=== PATIENT | female | born 1990 | race Caucasian/White ===

== ENCOUNTER → 2016-08-10 | Outpatient (CLI) | payer MEDICAID ==
[~2016-08-10] MED LIST: AMOXICILLIN 50500 MG PO; BACTRIM 400 MG-1 TAB PO; DICLOFENAC 50MG50 MG PO; DIFLUCAN150 MG PO; FLEXERIL10 MG PO; HYDROXYZINE PAM25 MG PO; KEFLEX 500MG.500 MG PO; MEDROL 4MG. DOSE4 MG PO; MINOCYCLINE 10100 MG PO; NOMEDS XX; NORCO 325 MG-51 TAB PO; ONDANSETRON 4MG4 M1 PO; PERCOCET1 TAB PO; PHENERGAN25 M3 PO; PREDNISONE 20MG20 MG PO; QUETIAPINE FUM100 M2 PO; SEROQUEL50 MG PO; SPRINTEC 35 MCG1 TAB PO; TORADOL10 MG PO; VISTARIL25 M1 PO; ZOFRAN ODT4 MG PO
[2016-08-10 16:05] LABS: HEMOGLOBIN 14.1 g/dL (12.2-16.2); LYMPH # 2.7 K/mm3 (0.7-4.5); LYMPH % 25.8 % (10-50.0)
[2016-08-10 17:28] LABS: BUN 5 mg/dL (7-18)
[2016-08-10 17:48] LABS: GFR (ESTIMATED) 122 ML/MIN (59-)
== END ==
LOC: LAB 15:51
PROVIDERS: Surgery
DX: Z01.812 Encounter for preprocedural laboratory examination (principal)

== ENCOUNTER 2016-08-11 09:13 | Day surgery (SDC) | payer MEDICAID ==
[~2016-08-11] VITALS: Ht 167.6 cm; Wt 95.3 kg
[~2016-08-11 09:13] MED LIST changes: -SEROQUEL50 MG PO; -TORADOL10 MG PO; -VISTARIL25 M1 PO
--- NOTE | 2016-08-11 11:21 | Operative Note ---
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 She has radiographic evidence of chronic calculus cholecystitis. Findings: Mild to moderate pericholecystic fat stranding Multiple stones within gallbladder Procedure Description: After informed consent was obtained, the patient was taken to the operating room and placed in the supine position. General anesthesia was induced and the patient's abdomen was prepped and draped in a sterile fashion. After infiltration with local anesthetic an infraumbilical incision was made. A Veress needle was placed in position. The abdomen was insufflated. A 5 mm optical trocar was placed in position. Under direct visualization, 2 additional 5 mm trocars were placed in the RIGHT upper quadrant. A 12 mm trocar was placed in the subxiphoid position. The gallbladder was elevated up and over the liver margin. The tissue around the cystic duct was carefully dissected. Clips were placed proximally and the duct was transected at the infundibulum utilizing harmonic afshin. Harmonic afshin were then utilized to remove the gallbladder from the liver margin. The gallbladder was placed in a retrieval bag and removed through the subxiphoid trocar site. The RIGHT upper quadrant was thoroughly irrigated. No active bleeding or bile leak was noted. The fascia at the subxiphoid trocar site was reapproximated utilizing the luis-close device. Pneumoperitoneum was released as the remaining trocars were removed. All wounds were irrigated and skin was closed with 4-0 Monocryl in a subcuticular fashion. Steri-Strips were applied and the patient's anesthetic agents were reversed. After extubation, the patient was transferred to recovery in stable condition. EBL (ml): 15 Anesthesia: GETA Complications: No immediate Specimens: Gallbladder and contents Disposition Disposition: Stable to recovery from where she will be discharged home. She will follow-up in 1-2 weeks. at 1121
[2016-08-11 14:15] VITALS: BP 131/84
[2016-10-20] MEDS ORDERED: SEROQUEL50 MG PO (09:12)
[2016-10-21] MEDS ORDERED: VISTARIL25 M1 PO (17:32)
== END 2016-08-11 13:15 | disposition home or self-care (01) ==
LOC: SDC 09:13
PROVIDERS: Surgery
PROC: 0FT44ZZ Resection of Gallbladder, Percutaneous Endoscopic Approach (ICD-10-PCS; principal; 2016-08-11 10:45)
DX: K80.10 Calculus of gallbladder with chronic cholecystitis without obstruction (principal)
CPT/HCPCS: J0131; J2405

== ENCOUNTER 2016-08-19 11:31 | Emergency (ER) | payer MEDICAID ==
[~2016-08-19] VITALS: Ht 167.6 cm; Wt 95.3 kg
--- NOTE | 2016-08-19 12:00 | Emergency Room Report ---
History of Present Illness Time Seen by [id number] Presenting Problem in Triage Pt arrived:Walked Presenting Problem:PT STATES HAVING GALLBLADDER SURGERY ONE WEEK AGO BY DR PARKER. PT STATES TOP INCISION HURTS. STATES IS SHE STANDS UP ALL THE WAY, THE TOP INCISION FEELS LIKE IT IS TEARING. STATES WHILE SHE IS SITTING STILL, AREA EMERY. STATES UNABLE TO GET COMFORTABLE. STATES OTHER AREAS BURN AT TIMES BUT THE TOP AREA IS WHAT HURTS THE MOST. STATES SHE HAS ASSISTED HER 2 YR INTO HER BED AND CLEANED HER HOUSE. DENIES DRAINAGE FROM INCISION. STATES FOLLOW UP APPT WITH DR PARKER ON . 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 N Clinical Suspician of Infection? N Mental Status: 1 - Regular (Normal Baseline) Sepsis Risk:Possible Sepsis Risk Have you (or family members/close friends) recently traveled outside the [place]? N If Yes, where/when: Have you had exposure to infectious disease within the past month? N TB? Other? Specify: Comment The patient had a laparoscopic cholecystectomy by Dr. Parker a days ago. She complains of pain in the area of her epigastric incision. It feels like a burning sensation and a ripping sensation when she moves. To touch she feels like there is a mass "like a baseball" in the area of this incision. She was on [place] for pain but ran out this weekend. Currently taking Tylenol and ibuprofen. She says that she called Dr. Parker's office today and they advised her to come to the emergency room or come to the office this afternoon. No fever, but gets hot flashes. She says that she is able to eat but usually has to stop after a few bites. No urinary or bowel symptoms. ALLERGIES Coded Allergies: tramadol (From [facility]) (08/11/16) Home Medications Reported Medications NORGESTIMATE-ETHINYL ESTRADIOL (Sprintec 28 Day Tablet) 1 TAB PO DAILY #28 PROMETHAZINE HCL (Phenergan 25MG Tab (Geq)) 25 MG PO Q6HP PRN N/V #15 History Medical History General CAD? No Angina: No [place]: No Hypertension? Yes Hyperlipidemia? No CHF? No DVT? No PE? No COPD? No Asthma? Yes Anemia? No GERD? No Gastric ulcers? No GI Bleed? No Hernia? No Thyroid Problems? No Hypothyroidism? No CVA? No Seizures? No Diabetes? No Renal Insuffiency? No End Stage Renal Disease? No UTI? Yes Stones? Yes BPH? No GB Disease: Yes Nephritic Syndrome? No Asplenia? No Hepatitis? Yes Sickle Cell Disease? No Arthritis? No Migraines? No Cataracts? No Glaucoma? No MRSA? No HIV? No TB? No Anxiety? Yes Depression? Yes Cancer? No More? No Immunization Hx DT/Tetanus 1-4 Years Ago Flu Refused Pneumonia Never Had Surgical Hx Previous Surgery?Y X 3 ORAL SURGERY GALLBLADDER CAT TENDER Hx LMP On Depo Med-LMP Unknown Family History Family Hx Diabetes Yes CAD No Hypertension Yes Hyperlipidemia No Cancer Yes TB No Social History Smoking Hx Smoker: Current Every Day Smoker Tobacco: Yes Type Cigarettes Packs/day < 1 Pack Alcohol Alcohol: No Review of Systems All Other Systems Reviewed and Negative Constitutional denies fever, other (hot flashes) Gastrointestinal abdominal pain, denies diarrhea, denies vomiting Genitourinary denies: dysuria. Physical Exam Vital Signs Vital Signs Date Time Temp Pulse Resp B/P Pulse O2 O2 Flow FiO2 Ox Delivery Rate 08/19 1138 98.4 101 20 156/102 97 General Appearance WD/WN, anxious Eye Exam - bilateral eye normal exam, bilateral eye PERRL, bilateral eye EOMI Ear, Nose, Throat hearing grossly normal, normal ENT inspection Neck normal inspection, non-tender, supple, full range of motion Respiratory Status Yes: trachea midline, chest symmetrical, non tender chest. No: respiratory distress. Lung Sounds bilateral: normal breath sounds, lungs clear. Cardiovascular normal exam, regular rate/rhythm, no peripheral edema, no gallop, no JVD, no murmur, no rub, normal peripheral pulses Peripheral Pulses Pulses normal Yes Gastrointestinal normal bowel sounds, soft, no organomegaly, focally tender in the area of her epigastric laparoscope incision. Purple/yellow ecchymosis inferior to this incision. Small firm mass palpable deep to the incision which feels like a hematoma. Other incisions are nontender. All are healing well. Back normal inspection, no CVA tenderness, no vertebral tenderness Extremities non-tender, normal range of motion, normal inspection Neurologic alert, freedom of information officer II-XII nml as tested, normal exam, oriented x 3 Mental status normal mood/affect Skin intact, normal color, warm/dry Medical Decision Making LABS/Meds/Orders Pt receiving controlled substance in ED? No Vasile was queried for this patient? Yes Reference #: [id number] Comment 8 rxs. last rx 27 norco on 08/11/15 Results/Orders Current Medication Orders Sig/Lisa Start time Last Medication Dose Route Stop Time Status Admin Ketorolac 60 MG ONCE ONE 08/195 DC Tromethamine IM 08/19 1245 Progress - 12:30 PM: I spoke with Dr. Parker. We discussed the patient's presentation and findings. The patient appears to have a hematoma at her epigastric incision. He states that this is the largest incision, where the gallbladder comes out, and always gives the most problems. He recommends treating her with an injection of Toradol and a prescription for Toradol and he will consult with his office staff to try and get her in sooner. They will call us back. Dr. Parker called back. He states that his office staff told him that when they were on the phone with the patient, she refused to go to the emergency department and wanted to come to the office this afternoon and they referred appointment for 2 or 3 PM. They advised her that Dr. Parker would not be able to prescribe opiates more than 3 days postoperatively and therefore she would not get narcotic pain medication. She then apparently decided to come to the emergency department instead. 12:40 PM: I discussed the plan as noted with the patient. She is sitting upright using a cellular phone appearing in no distress. She is agreeable with the plan. Departure Departure Disposition DC Home or Self Care(routine) Clinical Impression Primary Impression: Hematoma Condition STABLE Referrals Giorgio Allen (Family) Additional Instructions Return to the emergency department if worsening pain, fever, vomiting. See Dr. Parker on August 25 at 10:45 AM. Prescriptions Current Visit Scripts KETOROLAC TROMETHAMINE (TORADOL 10MG) 10 MG PO Q6HP PRN pain #20 TAB ED Critical Care Critical Care No at 1250
--- NOTE | 2016-08-19 12:00 | Emergency Room Report ---
History of Present Illness Time Seen by [id number] Presenting Problem in Triage Pt arrived:Walked Presenting Problem:PT STATES HAVING GALLBLADDER SURGERY ONE WEEK AGO BY DR PARKER. PT STATES TOP INCISION HURTS. STATES IS SHE STANDS UP ALL THE WAY, THE TOP INCISION FEELS LIKE IT IS TEARING. STATES WHILE SHE IS SITTING STILL, AREA EMERY. STATES UNABLE TO GET COMFORTABLE. STATES OTHER AREAS BURN AT TIMES BUT THE TOP AREA IS WHAT HURTS THE MOST. STATES SHE HAS ASSISTED HER 2 YR INTO HER BED AND CLEANED HER HOUSE. DENIES DRAINAGE FROM INCISION. STATES FOLLOW UP APPT WITH DR PARKER ON . 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 N Clinical Suspician of Infection? N Mental Status: 1 - Regular (Normal Baseline) Sepsis Risk:Possible Sepsis Risk Have you (or family members/close friends) recently traveled outside the [place]? N If Yes, where/when: Have you had exposure to infectious disease within the past month? N TB? Other? Specify: Comment The patient had a laparoscopic cholecystectomy by Dr. Parker a days ago. She complains of pain in the area of her epigastric incision. It feels like a burning sensation and a ripping sensation when she moves. To touch she feels like there is a mass "like a baseball" in the area of this incision. She was on [place] for pain but ran out this weekend. Currently taking Tylenol and ibuprofen. She says that she called Dr. Parker's office today and they advised her to come to the emergency room or come to the office this afternoon. No fever, but gets hot flashes. She says that she is able to eat but usually has to stop after a few bites. No urinary or bowel symptoms. ALLERGIES Coded Allergies: tramadol (From [facility]) (08/11/16) Home Medications Reported Medications NORGESTIMATE-ETHINYL ESTRADIOL (Sprintec 28 Day Tablet) 1 TAB PO DAILY #28 PROMETHAZINE HCL (Phenergan 25MG Tab (Geq)) 25 MG PO Q6HP PRN N/V #15 History Medical History General CAD? No Angina: No [place]: No Hypertension? Yes Hyperlipidemia? No CHF? No DVT? No PE? No COPD? No Asthma? Yes Anemia? No GERD? No Gastric ulcers? No GI Bleed? No Hernia? No Thyroid Problems? No Hypothyroidism? No CVA? No Seizures? No Diabetes? No Renal Insuffiency? No End Stage Renal Disease? No UTI? Yes Stones? Yes BPH? No GB Disease: Yes Nephritic Syndrome? No Asplenia? No Hepatitis? Yes Sickle Cell Disease? No Arthritis? No Migraines? No Cataracts? No Glaucoma? No MRSA? No HIV? No TB? No Anxiety? Yes Depression? Yes Cancer? No More? 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 Physical Exam Vital Signs Vital Signs Date Time Temp Pulse Resp B/P Pulse O2 O2 Flow FiO2 Ox Delivery Rate 08/19 1138 98.4 101 20 156/102 97 General Appearance WD/WN, anxious Eye Exam - bilateral eye normal exam, bilateral eye PERRL, bilateral eye EOMI Ear, Nose, Throat hearing grossly normal, normal ENT inspection Neck normal inspection, non-tender, supple, full range of motion Respiratory Status Yes: trachea midline, chest symmetrical, non tender chest. No: respiratory distress. Lung Sounds bilateral: normal breath sounds, lungs clear. Cardiovascular normal exam, regular rate/rhythm, no peripheral edema, no gallop, no JVD, no murmur, no rub, normal peripheral pulses Peripheral Pulses Pulses normal Yes Gastrointestinal normal bowel sounds, soft, no organomegaly, focally tender in the area of her epigastric laparoscope incision. Purple/yellow ecchymosis inferior to this incision. Small firm mass palpable deep to the incision which feels like a hematoma. Other incisions are nontender. All are healing well. Back normal inspection, no CVA tenderness, no vertebral tenderness Extremities non-tender, normal range of motion, normal inspection Neurologic alert, human relations manager II-XII nml as tested, normal exam, oriented x 3 Mental status normal mood/affect Skin intact, normal color, warm/dry Medical Decision Making LABS/Meds/Orders Pt receiving controlled substance in ED? No Vasile was queried for this patient? Yes Reference #: [id number] Comment 8 rxs. last rx 27 norco on 08/11/15 Results/Orders Current Medication Orders Sig/Lisa Start time Last Medication Dose Route Stop Time Status Admin Ketorolac 60 MG ONCE ONE 08/195 DC Tromethamine IM 08/19 1245 Progress - 12:30 PM: I spoke with Dr. Parker. We discussed the patient's presentation and findings. The patient appears to have a hematoma at her epigastric incision. He states that this is the largest incision, where the gallbladder comes out, and always gives the most problems. He recommends treating her with an injection of Toradol and a prescription for Toradol and he will consult with his office staff to try and get her in sooner. They will call us back. Dr. Parker called back. He states that his office staff told him that when they were on the phone with the patient, she refused to go to the emergency department and wanted to come to the office this afternoon and they referred appointment for 2 or 3 PM. They advised her that Dr. Parker would not be able to prescribe opiates more than 3 days postoperatively and therefore she would not get narcotic pain medication. She then apparently decided to come to the emergency department instead. 12:40 PM: I discussed the plan as noted with the patient. She is sitting upright using a cellular phone appearing in no distress. She is agreeable with the plan. Departure Departure Disposition DC Home or Self Care(routine) Clinical Impression Primary Impression: Hematoma Condition STABLE Referrals Giorgio Allen (Family) Additional Instructions Return to the emergency department if worsening pain, fever, vomiting. See Dr. Parker on August 25 at 10:45 AM. Prescriptions Current Visit Scripts KETOROLAC TROMETHAMINE (TORADOL 10MG) 10 MG PO Q6HP PRN pain #20 TAB ED Critical Care Critical Care No at 1250
[2016-08-19] MEDS ORDERED: TORADOL10 MG PO (12:48)
[2016-08-19 13:18] VITALS: BP 161/92
[2016-10-20] MEDS ORDERED: SEROQUEL50 MG PO (09:12)
[2016-10-21] MEDS ORDERED: VISTARIL25 M1 PO (17:32)
== END 2016-08-19 13:19 | disposition home or self-care (01) ==
LOC: ER 11:31
DX: L76.32 Postprocedural hematoma of skin and subcutaneous tissue following other procedure (principal); I10 Essential (primary) hypertension; Z72.0 Tobacco use; F41.8 Other specified anxiety disorders

== ENCOUNTER 2017-02-08 15:42 | Emergency (ER) | payer MEDICAID ==
[~2017-02-08] VITALS: Ht 167.6 cm; Wt 79.4 kg
[~2017-02-08 15:42] MED LIST changes: +INDOCIN25 MG PO; +PROZAC20 MG PO; +SEROQUEL50 MG PO; +TORADOL10 MG PO; +VISTARIL25 M1 PO
[2017-02-08] MEDS ORDERED: BUSPIRONE HCL15 MG PO (16:08)
[2017-02-08] MEDS ORDERED: BROMFED DM COU118 ML PO (16:44)
[2017-02-08] MEDS ORDERED: OMNICEF 300 MG300 MG PO (16:44)
--- NOTE | 2017-02-08 16:45 | Urgent Treatment Center Report ---
History of Present Issue Date/Time Seen by Provider 02/08/17 1635 Visit Reason Pt arrived:Walked Presenting Problem:PT REPORTS SORE THROAT X3 DAYS. Location if Accident: Onset of symptoms date/time:02/05/17/ or onset unknown for:MEDICAL HX UNKNOWN Have you (or family members/close friends) recently traveled outside the [place]? N If Yes, where/when: Have you had exposure to infectious disease within the past month? TB? Other? Specify: Patient state that she has had sore throat for 3-4 days State that it has not got any better only gotten worse. State that throat feels raw and irritated and hurts when she swallows. States that she also has a dry cough. States that when she coughs it makes her throat hurt even worse. Source patient ALLERGIES Coded Allergies: tramadol (From [facility]) (10/21/16) Home Medications Active Scripts Hydroxyzine Pamoate (Vistaril 25MG CAP) 25 MG PO Q6HP PRN nausea; anxiety #10 CAP Prov: 10/21/16 Reported Medications NORGESTIMATE-ETHINYL ESTRADIOL (Sprintec 28 Day Tablet) 1 TAB PO DAILY #28 Quetiapine Fumarate (Seroquel 50MG) 100 MG PO QHS Fluoxetine Hcl (Prozac) 20 MG PO DAILY Buspirone Hcl 15 MG PO DAILY #60 History Medical History General CAD? No Angina: No [place]: No Hypertension? Yes Hyperlipidemia? No CHF? No DVT? No PE? No COPD? No Asthma? Yes Anemia? No GERD? No Gastric ulcers? No GI Bleed? No Hernia? No Thyroid Problems? No Hypothyroidism? No CVA? No Seizures? No Diabetes? No Renal Insuffiency? No UTI? Yes Stones? Yes BPH? No GB Disease: Yes Nephritic Syndrome? No Asplenia? No Hepatitis? Yes Sickle Cell Disease? No Arthritis? No Migraines? No Cataracts? No Glaucoma? No MRSA? No HIV? No TB? No Anxiety? Yes Depression? Yes Cancer? No More? 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 Respiratory cough, denies shortness of breath, denies stridor, denies wheezing Physical Exam Vital Signs Vital Signs Date Time Temp Pulse Resp B/P Pulse O2 O2 Flow FiO2 Ox Delivery Rate 02/08 1606 98.5 107 20 143/95 98 02/08 1551 98.5 107 20 143/95 98 General Appearance Patient appears ill lying on exam table Ear, Nose, Throat sinus pain/drainage, tonsillar swelling, throat red, drainage noted swollen Respiratory Status Yes: trachea midline, chest symmetrical, non tender chest. No: respiratory distress. Cardiovascular normal exam, regular rate/rhythm, no peripheral edema, no gallop Neurologic alert, electronic test technician II-XII nml as tested, normal exam, no motor/sensory deficits, oriented x 3 Medical Decision Making LABS/Meds/Orders Pt receiving controlled substance in ED? No Results/Orders Laboratory Tests 02/08/17 1609: Group A Strep Screen NOT DETECTED Orders Procedure Date/time Status [facility] STREP SCREEN 02/08 1609 Complete Departure Departure Time of Disposition 1642 Disposition DC Home or Self Care(routine) Clinical Impression Primary Impression: Upper respiratory infection Qualifiers: URI type: acute tonsillitis Pharyngitis/tonsillitis etiology: unspecified etiology Qualified Code: J03.90 - Acute tonsillitis, unspecified Condition STABLE Referrals NO REFERRAL (Family) Patient Instructions Sore Throat Additional Instructions * Monitor Temp. Tylenol and/or Ibuprofen as needed. ER if fever is no less than 101 despite alternating Tylenol and Ibuprofen * Encourage fluids, water, Gatorade, powerade, pedialyte if infant/toddler/or child * Warm salt water gargles for throat irritation *Warm fluids *Sore throat lozenges *Sleep elevated *humidifier or vaporizer *Bromfed may cause drowsiness. Know how it effect you or your child. Before driving, caring for small children or sending your child to school Follow up IMMEDIATELY for new or worsening of symptoms OR no noticeable improvement over the next 48-72 hours. 911 immediately for any life threatening symptoms such as chest pain or difficulty breathing Discharge Counseling Counseled pt/family regarding diagnosis, test results, medications/RX, home care, follow up needs Prescriptions Current Visit Scripts CEFDINIR (Cefdinir) 300 MG PO BID #20 CAP D-METHORPHAN HB/P-EPD HCL/BPM (Bromfed Dm Cough Syrup) 10 ML PO Q4HP PRN cough #150 SYR at 3729
--- NOTE | 2017-02-08 16:45 | Urgent Treatment Center Report ---
History of Present Issue Date/Time Seen by Provider 02/08/17 1635 Visit Reason Pt arrived:Walked Presenting Problem:PT REPORTS SORE THROAT X3 DAYS. Location if Accident: Onset of symptoms date/time:02/05/17/ or onset unknown for:MEDICAL HX UNKNOWN Have you (or family members/close friends) recently traveled outside the [place]? N If Yes, where/when: Have you had exposure to infectious disease within the past month? TB? Other? Specify: Patient state that she has had sore throat for 3-4 days State that it has not got any better only gotten worse. State that throat feels raw and irritated and hurts when she swallows. States that she also has a dry cough. States that when she coughs it makes her throat hurt even worse. Source patient ALLERGIES Coded Allergies: tramadol (From [facility]) (10/21/16) Home Medications Active Scripts Hydroxyzine Pamoate (Vistaril 25MG CAP) 25 MG PO Q6HP PRN nausea; anxiety #10 CAP Prov: 10/21/16 Reported Medications NORGESTIMATE-ETHINYL ESTRADIOL (Sprintec 28 Day Tablet) 1 TAB PO DAILY #28 Quetiapine Fumarate (Seroquel 50MG) 100 MG PO QHS Fluoxetine Hcl (Prozac) 20 MG PO DAILY Buspirone Hcl 15 MG PO DAILY #60 History Medical History General CAD? No Angina: No FL: No Hypertension? Yes Hyperlipidemia? No CHF? No DVT? No PE? No COPD? No Asthma? Yes Anemia? No GERD? No Gastric ulcers? No GI Bleed? No Hernia? No Thyroid Problems? No Hypothyroidism? No CVA? No Seizures? No Diabetes? No Renal Insuffiency? No UTI? Yes Stones? Yes BPH? No GB Disease: Yes Nephritic Syndrome? No Asplenia? No Hepatitis? Yes Sickle Cell Disease? No Arthritis? No Migraines? No Cataracts? No Glaucoma? No MRSA? No HIV? No TB? No Anxiety? Yes Depression? Yes Cancer? No More? No Immunization HX DT/Tetanus 1-4 Years Ago Flu Refused Pneumonia Never Had Surgical Hx Previous Surgery?Y X 3 ORAL SURGERY [employer]IAN Hx LMP 2 Weeks Ago Family History Family HX Diabetes Yes CAD No Hypertension Yes Hyperlipidemia No Cancer Yes TB No Social History Smoking Hx Smoker: Current Every Day Smoker Tobacco: Yes Type Cigarettes Packs/day < 1 Pack Alcohol Alcohol: No Review of Systems All Other Systems Reviewed and Negative Constitutional chills ENT nose congestion, throat pain, throat swelling. Respiratory cough, denies shortness of breath, denies stridor, denies wheezing Physical Exam Vital Signs Vital Signs Date Time Temp Pulse Resp B/P Pulse O2 O2 Flow FiO2 Ox Delivery Rate 02/08 1606 98.5 107 20 143/95 98 02/08 1551 98.5 107 20 143/95 98 General Appearance Patient appears ill lying on exam table Ear, Nose, Throat sinus pain/drainage, tonsillar swelling, throat red, drainage noted swollen Respiratory Status Yes: trachea midline, chest symmetrical, non tender chest. No: respiratory distress. 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 No Results/Orders Laboratory Tests 02/08/17 1609: Group A Strep Screen NOT DETECTED Orders Procedure Date/time Status RUST STREP SCREEN 02/08 1609 Complete Departure Departure Time of Disposition 1642 Disposition DC Home or Self Care(routine) Clinical Impression Primary Impression: Upper respiratory infection Qualifiers: URI type: acute tonsillitis Pharyngitis/tonsillitis etiology: unspecified etiology Qualified Code: J03.90 - Acute tonsillitis, unspecified Condition STABLE Referrals NO REFERRAL (Family) Patient Instructions Sore Throat Additional Instructions * Monitor Temp. Tylenol and/or Ibuprofen as needed. ER if fever is no less than 101 despite alternating Tylenol and Ibuprofen * Encourage fluids, water, Gatorade, powerade, pedialyte if infant/toddler/or child * Warm salt water gargles for throat irritation *Warm fluids *Sore throat lozenges *Sleep elevated *humidifier or vaporizer *Bromfed may cause drowsiness. Know how it effect you or your child. Before driving, caring for small children or sending your child to school Follow up IMMEDIATELY for new or worsening of symptoms OR no noticeable improvement over the next 48-72 hours. 911 immediately for any life threatening symptoms such as chest pain or difficulty breathing Discharge Counseling Counseled pt/family regarding diagnosis, test results, medications/RX, home care, follow up needs Prescriptions Current Visit Scripts CEFDINIR (Cefdinir) 300 MG PO BID #20 CAP D-METHORPHAN HB/P-EPD HCL/BPM (Bromfed Dm Cough Syrup) 10 ML PO Q4HP PRN cough #150 SYR at [id number]
--- OUTSIDE RECORDS SUMMARY | 2017-02-08 16:53 | External Medical Summary Rpt ---
Demographics Home Phone Preferred Language Turkish Marital Status Unknown Restorationism Affiliation Unknown Race Unknown Ethnic Group Unknown Author Author , Organization [employer] Address Unknown Phone Unavailable Purpose Continuity of Care Document - 02-09-2014 through 2016 Immunization Name Date Route CVX Reacti Commen Provid Is Given on t er Refuse d Tdap, 115 Histor [id number] No Adsorb 2013 uscula ical ed r Inform ation - Source Unspec ified
--- OUTSIDE RECORDS SUMMARY | 2017-02-08 16:53 | External Medical Summary Rpt ---
Demographics Home Phone Preferred Language Turkmen Marital Status Unknown Bahai Affiliation Unknown Race Unknown Ethnic Group Unknown Author Author , Organization [employer] Address Unknown Phone Unavailable Purpose Continuity of Care Document - 02-09-2014 through 2016 Immunization Name Date Route CVX Reacti Commen Provid Is Given on t er Refuse d Tdap, 115 Histor [id number] No Adsorb 2013 uscula ical ed r Inform ation - Source Unspec ified
--- OUTSIDE RECORDS SUMMARY | 2017-02-08 16:54 | External Medical Summary Rpt ---
Author Author [employer], [employer] Organization [employer] Address Unknown Phone Unavailable Results POC UA Observa Value Referen Units Interpr Notes Date tion ce etation Range UA Yellow No No No No January 02 Color informa informa informa informa 2015 POC tion in tion in tion in tion in 1:06 PM source source source source data data data data UA Clear Clear No No No January 02 Appear informa informa informa 2014 POC tion in tion in tion in 1:06 PM source source source data data data UA Gluc Negativ Negativ No No No January 02 POC e e informa informa informa 2015 tion in tion in tion in 1:06 PM source source source data data data UA Negativ Negativ No No No January 02 Ketones e e informa informa informa 2014 POC tion in tion in tion in 1:06 PM source source source data data data UA Negativ Negativ No No No January 02 Blood e e informa informa informa 2015 POC tion in tion in tion in 1:06 PM source source source data data data UA pH 5.5 5.0 - No No No January 02 POC 8.0 informa informa informa 2015 tion in tion in tion in 1:06 PM source source source data data data UA Negativ Negativ No No No January 02 Protein e e informa informa informa 2014 POC tion in tion in tion in 1:06 PM source source source data data data UA 0.2 <=1 No No No January 02 Urobili mg/dl mg/dl informa informa informa 2015 nogen tion in tion in tion in 1:06 PM POC source source source data data data UA Negativ Negativ No No No January 02 Nitrite e e informa informa informa 2015 POC tion in tion in tion in 1:06 PM source source source data data data UA Leuk Negativ Negativ No No No January 02 Est e e informa informa informa 2014 POC tion in tion in tion in 1:06 PM source source source data data data UA SG 1.010 1.001 - No No No January 02 POC 1.035 informa informa informa 2015 tion in tion in tion in 1:06 PM source source source data data data Lipase Observa Value Referen Units Interpr Notes Date tion ce etation Range Lipase 10 13 - 60 IU/L Low No January 02 Lvl informa 2015 tion in 1:24 PM source data HCG Qual Observa Value Referen Units Interpr Notes Date tion ce etation Range HCG Negativ No No No No January 02 QUAL e informa informa informa informa 2014 tion in tion in tion in tion in 1:19 PM source source source source data data data data Auto Diff Observa Value Referen Units Interpr Notes Date tion ce etation Range Neutrop 61.1 No % No No January 02 hils informa informa informa 2014 [#/volu tion in tion in tion in 1:03 PM me] in source source source Blood data data data by Automat ed count Lymphoc 29.1 No % No No January 02 ytes informa informa informa 2014 [#/volu tion in tion in tion in 1:03 PM me] in source source source Blood data data data by Automat ed count Monocyt 8.9 No % No No January 02 es informa informa informa 2014 [#/volu tion in tion in tion in 1:03 PM me] in source source source Blood data data data by Automat ed count Eos 0.2 No % No No January 02 Percent informa informa informa 2014 tion in tion in tion in 1:03 PM source source source data data data Baso 0.7 No % No No January 02 Percent informa informa informa 2014 tion in tion in tion in 1:03 PM source source source data data data Neut# 4.6 1.8 - x10(3)/ No No January 02 7.7 mcL informa informa 2014 tion in tion in 1:03 PM source source data data Lymph# 2.2 0.6 - x10(3)/ No No January 02 4.8 mcL informa informa 2014 tion in tion in 1:03 PM source source data data Lamar# 0.7 0.0 - x10(3)/ No January 02 1.3 mcL informa informa 2014 tion in tion in 1:03 PM source source data data Eos# 0.0 0.0 - x10(3)/ No January 02 0.5 mcL informa informa 2014 tion in tion in 1:03 PM source source data data Baso# 0.1 0.0 - x10(3)/ No January 02 0.2 mcL informa informa 2014 tion in tion in 1:03 PM source source data data CBC Observa Value Referen Units Interpr Notes Date tion ce etation Range LEUKOCY 7.5 4.0 - x10(3)/ No January 02 MARIBETH 11.0 mcL informa informa 2014 tion in tion in 1:03 PM source source data data Erythro 4.61 3.80 - x10(6)/ No January 02 cytes 5.10 [facility] informa informa 2014 [#/volu tion in tion in 1:03 PM me] in source source Blood data data by Automat ed count Hemoglo 13.6 12.0 - gm/dL No January 02 bin 15.6 informa informa 2014 [Mass/v tion in tion in 1:03 PM olume] source source in data data Blood Hematoc 40.5 35.7 - % No January 02 rit 45.9 informa informa 2014 [Volume tion in tion in 1:03 PM source source Fractio data data n] of Blood by Automat ed count Erythro 87.9 82.5 - fL No January 02 cyte 99.8 informa informa 2014 mean tion in tion in 1:03 PM corpusc source source ular data data volume [Entiti c volume] by Automat ed count Erythro 29.5 27.0 - pg No January 02 cyte 34.3 informa informa 2014 mean tion in tion in 1:03 PM corpusc source source ular data data hemoglo bin [Entiti c mass] by Automat ed count Erythro 33.6 32.1 - gm/dL No January 02 cyte 35.3 informa informa 2015 mean tion in tion in 1:03 PM corpusc source source ular data data hemoglo bin concent ration [Mass/v olume] by Automat ed count Erythro 14.6 11.5 - % No No January 02 cyte 15.0 informa informa 2015 distrib tion in tion in 1:03 PM ution source source width data data [Ratio] by Automat ed count Platele 250 144 - x10(3)/ No No January 02 ts 423 mcL informa informa 2015 [#/volu tion in tion in 1:03 PM me] in source source Blood data data by Automat ed count MPV 9.8 6.8 - fL No No January 02 10.8 informa informa 2014 tion in tion in 1:03 PM source source data data POC UA Observa Value Referen Units Interpr Notes Date tion ce etation Range UA Red No No No No May 9 Color informa informa informa informa 2013 POC tion in tion in tion in tion in 6:03 PM source source source source data data data data UA Slightl Clear No Abnorma No May 9 Appear y informa l informa 2013 POC Cloudy tion in tion in 6:03 PM source source data data UA Gluc Negativ Negativ No No No May 9 POC e e informa informa informa 2013 tion in tion in tion in 6:03 PM source source source data data data UA Negativ Negativ No No No May 9 Ketones e e informa informa informa 2013 POC tion in tion in tion in 6:03 PM source source source data data data UA Large Negativ No Abnorma No May 9 Blood e informa l informa 2013 POC tion in tion in 6:03 PM source source data data UA pH 5.5 5.0 - No No No May 9 POC 8.0 informa informa informa 2014 tion in tion in tion in 6:03 PM source source source data data data UA 30 Negativ No Abnorma No Oct 9 Protein mg/dl e informa l informa 2013 POC tion in tion in 6:03 PM source source data data UA 0.2 <=1 No No No Oct 9 Urobili mg/dl mg/dl informa informa informa 2013 nogen tion in tion in tion in 6:03 PM POC source source source data data data UA Negativ Negativ No No No Oct 9 Nitrite e e informa informa informa 2013 POC tion in tion in tion in 6:03 PM source source source data data data UA Leuk Trace Negativ No Abnorma No Oct 9 Est e informa l informa 2014 POC tion in tion in 6:03 PM source source data data UA SG 1.020 1.001 - No No No Oct 9 POC 1.035 informa informa informa 2014 tion in tion in tion in 6:03 PM source source source data data data UA Observa Value Referen Units Interpr Notes Date tion ce etation Range UA Stilwell No No Abnorma No Oct 9 Color informa informa l informa 2014 tion in tion in tion in 6:29 PM source source source data data data UA Slightl Clear No Abnorma No Oct 9 Appear y informa l informa 2014 Cloudy tion in tion in 6:29 PM source source data data UA Negativ Negativ No No No Oct 9 Glucose e e informa informa informa 2013 tion in tion in tion in 6:29 PM source source source data data data UA Negativ Negativ No No No Oct 9 Ketones e e informa informa informa 2013 tion in tion in tion in 6:29 PM source source source data data data UA Large Negativ No Abnorma No Oct 9 Blood e informa l informa 2013 tion in tion in 6:29 PM source source data data UA pH 6.0 5.0 - No No No Oct 9 8.0 informa informa informa 2013 tion in tion in tion in 6:29 PM source source source data data data UA 30 Negativ No Abnorma No Oct 9 Protein mg/dl e informa l informa 2013 tion in tion in 6:29 PM source source data data UA 0.2 <=1 No No No Oct 9 Urobili mg/dl mg/dl informa informa informa 2014 nogen tion in tion in tion in 6:29 PM source source source data data data UA Negativ Negativ No No No Oct 9 Nitrite e e informa informa informa 2013 tion in tion in tion in 6:29 PM source source source data data data UA Leuk Trace Negativ No Abnorma No May 9 Est e informa l informa 2014 tion in tion in 6:29 PM source source data data UA Spec 1.020 No No No No May 17 Grav informa informa informa informa 2014 tion in tion in tion in tion in 6:29 PM source source source source data data data data UA RBC TNTC No /HPF No No May 17 informa informa informa 2014 tion in tion in tion in 6:29 PM source source source data data data UA Many No /HPF Abnorma No May 9 Bacteri informa l informa 2014 a tion in tion in 6:29 PM source source data data HCG Qual Observa Value Referen Units Interpr Notes Date tion ce etation Range HCG Negativ No No No No May 9 QUAL e informa informa informa informa 2014 tion in tion in tion in tion in 6:29 PM source source source source data data data data Auto Diff Observa Value Referen Units Interpr Notes Date tion ce etation Range Neutrop 57.3 No % No No May 17 hils informa informa informa 2013 [#/volu tion in tion in tion in 5:51 PM me] in source source source Blood data data data by Automat ed count Lymphoc 33.0 No % No No May 9 ytes informa informa informa 2013 [#/volu tion in tion in tion in 5:51 PM me] in source source source Blood data data data by Automat ed count Monocyt 7.9 No % No No May 17 es informa informa informa 2013 [#/volu tion in tion in tion in 5:51 PM me] in source source source Blood data data data by Automat ed count Eos 1.1 No % No No May 9 Percent informa informa informa 2013 tion in tion in tion in 5:51 PM source source source data data data Baso 0.7 No % No No May 9 Percent informa informa informa 2014 tion in tion in tion in 5:51 PM source source source data data data Neut# 4.4 1.8 - x10(3)/ No No May 9 7.7 mcL informa informa 2014 tion in tion in 5:51 PM source source data data Lymph# 2.5 0.6 - x10(3)/ No No May 9 4.8 [facility] informa informa 2013 tion in tion in 5:51 PM source source data data Lamar# 0.6 0.0 - x10(3)/ No No May 9 1.3 mcL informa informa 2013 tion in tion in 5:51 PM source source data data Eos# 0.1 0.0 - x10(3)/ No No May 9 0.5 [facility] informa informa 2013 tion in tion in 5:51 PM source source data data Baso# 0.1 0.0 - x10(3)/ No No May 9 0.2 [facility] informa informa 2013 tion in tion in 5:51 PM source source data data CBC Observa Value Referen Units Interpr Notes Date tion ce etation Range LEUKOCY 7.7 4.0 - x10(3)/ No No May 9 MARIBETH 11.0 [facility] informa informa 2013 tion in tion in 5:51 PM source source data data Erythro 4.49 3.80 - x10(6)/ No No May 9 cytes 5.10 [facility] informa informa 2013 [#/volu tion in tion in 5:51 PM me] in source source Blood data data by Automat ed count Hemoglo 13.1 12.0 - gm/dL No No May 17 bin 15.6 informa informa 2013 [Mass/v tion in tion in 5:51 PM olume] source source in data data Blood Hematoc 39.2 35.7 - % No No May 17 rit 45.9 informa informa 2013 [Volume tion in tion in 5:51 PM source source Fractio data data n] of Blood by Automat ed count Erythro 87.2 82.5 - fL No No May 17 cyte 99.8 informa informa 2013 mean tion in tion in 5:51 PM corpusc source source ular data data volume [Entiti c volume] by Automat ed count Erythro 29.2 27.0 - pg No No May 9 cyte 34.3 informa informa 2013 mean tion in tion in 5:51 PM corpusc source source ular data data hemoglo bin [Entiti c mass] by Automat ed count Erythro 33.5 32.1 - gm/dL No No May 17 cyte 35.3 informa informa 2013 mean tion in tion in 5:51 PM corpusc source source ular data data hemoglo bin concent ration [Mass/v olume] by Automat ed count Erythro 14.7 11.5 - % No No May 17 cyte 15.0 informa informa 2013 distrib tion in tion in 5:51 PM ution source source width data data [Ratio] by Automat ed count Platele 294 144 - x10(3)/ No No May 17 ts 423 mcL informa informa 2013 [#/volu tion in tion in 5:51 PM me] in source source Blood data data by Automat ed count MPV 9.6 6.8 - fL No No May 17 10.8 informa informa 2013 tion in tion in 5:51 PM source source data data Chl/GC Genital Results Observa Value Referen Units Interpr Notes Date tion ce etation Range C. Genital No No No Test May 19 trachom informa informa informa methodo 2014 atis/N. tion in tion in tion in logy is 5:57 AM source source source gonorrh data data data amplifi oeae ed DNA Specime probe n using [employer] A negativ e result does not rule out the presenc e of DNA in concent rations below\\. br\\the level of detecti on of the assay.\\ .br\\\\.b r\\The perform ance charact eristic s of this test were validat ed by [facility] are Laborat ory. This laborat ory is authori victor manuel under the Clinica l\\.br\\L aborato ry Improve ment Amendme nts (CLIA) as qualifi ed to perform high-co mplexit y testing . Complia nce stateme nt is availab le in the Laborat ory.\\.b r\\\\.br\\ Extract ion of genetic materia l from urine and Thin Prep samples was perform ed using a method that was develop ed and validat ed in the perform ing laborat ory. Detaile d methodo logy is availab le upon request .\\.br\\\\ .br\\In rare instanc es, non-pat hogenic strains of Neisser ia may cross react and give a false positiv e result for N. gonorrh ea. If concern ed that this cross\\. br\\reac tivity has occurre d, please recolle ct and submit for genital culture prior to treatme nt.\\.br \\\\.br\\T he perform ance of this test has not been verifie d in minor aged patient s. This test is indicat ed for medical purpose s only. Chlamyd Negativ No No No No May 19 ia e informa informa informa informa 2014 trachom tion in tion in tion in tion in 5:57 AM atis source source source source data data data data Neisser Negativ No No No No May 19 ia e informa informa informa informa 2014 gonorrh tion in tion in tion in tion in 5:57 AM oeae source source source source data data data data Auto Diff Observa Value Referen Units Interpr Notes Date tion ce etation Range Neutrop 74.7 No % No No Feb 08 hils informa informa informa 2013 [#/volu tion in tion in tion in 6:11 AM me] in source source source Blood data data data by Automat ed count Lymphoc 16.9 No % No No Feb 08 ytes informa informa informa 2013 [#/volu tion in tion in tion in 6:11 AM me] in source source source Blood data data data by Automat ed count Monocyt 6.8 No % No No Feb 08 es informa informa informa 2013 [#/volu tion in tion in tion in 6:11 AM me] in source source source Blood data data data by Automat ed count Eos 1.3 No % No No Feb 08 Percent informa informa informa 2013 tion in tion in tion in 6:11 AM source source source data data data Baso 0.3 No % No No Feb 08 Percent informa informa informa 2013 tion in tion in tion in 6:11 AM source source source data data data Neut# 6.1 1.8 - x10(3)/ No No Feb 08 7.7 mcL informa informa 2014 tion in tion in 6:11 AM source source data data Lymph# 1.4 0.6 - x10(3)/ No No Feb 3 4.8 mcL informa informa 2013 tion in tion in 6:11 AM source source data data Lamar# 0.6 0.0 - x10(3)/ No No Feb 3 1.3 mcL informa informa 2013 tion in tion in 6:11 AM source source data data Eos# 0.1 0.0 - x10(3)/ No No Feb 3 0.5 mcL informa informa 2014 tion in tion in 6:11 AM source source data data Baso# 0.0 0.0 - x10(3)/ No No Feb 3 0.2 mcL informa informa 2014 tion in tion in 6:11 AM source source data data CBC Observa Value Referen Units Interpr Notes Date tion ce etation Range LEUKOCY 8.1 4.0 - x10(3)/ No No Feb 08 MARIBETH 11.0 mcL informa informa 2013 tion in tion in 6:11 AM source source data data Erythro 3.47 3.80 - x10(6)/ Low No Feb 08 cytes 5.10 mcL informa 2013 [#/volu tion in 6:11 AM me] in source Blood data by Automat ed count Hemoglo 10.7 12.0 - gm/dL Low No Feb 08 bin 15.6 informa 2013 [Mass/v tion in 6:11 AM olume] source in data Blood Hematoc 31.2 35.7 - % Low No Feb 08 rit 45.9 informa 2013 [Volume tion in 6:11 AM source Fractio data n] of Blood by Automat ed count Erythro 89.9 82.5 - fL No No Feb 08 cyte 99.8 informa informa 2013 mean tion in tion in 6:11 AM corpusc source source ular data data volume [Entiti c volume] by Automat ed count Erythro 30.9 27.0 - pg No No Feb 08 cyte 34.3 informa informa 2014 mean tion in tion in 6:11 AM corpusc source source ular data data hemoglo bin [Entiti c mass] by Automat ed count Erythro 34.4 32.1 - gm/dL No No Feb 08 cyte 35.3 informa informa 2014 mean tion in tion in 6:11 AM corpusc source source ular data data hemoglo bin concent ration [Mass/v olume] by Automat ed count Erythro 14.2 11.5 - % No No Feb 08 cyte 15.0 informa informa 2013 distrib tion in tion in 6:11 AM ution source source width data data [Ratio] by Automat ed count Platele 194 144 - x10(3)/ No No Feb 08 ts 423 mcL informa informa 2013 [#/volu tion in tion in 6:11 AM me] in source source Blood data data by Automat ed count MPV 9.8 6.8 - fL No No Feb 08 10.8 informa informa 2013 tion in tion in 6:11 AM source source data data PT Observa Value Referen Units Interpr Notes Date tion ce etation Range PT 10.3 9.6 - second( No No Feb 07 12.6 s) informa informa 2013 tion in tion in 11:00 source source AM data data INR in 0.93 0.87 - No No Level Feb 07 Platele 1.13 informa informa 2013 t poor tion in tion in Therapy 11:00 plasma source source AM by data data Indicat Coagula ions tion Target assay INR Range\\. br\\\\.br \\Standa rd Dose Treatme nt and prophyl axis of venous 2.0 - 3.0\\.br \\ thrombo sis, pulmona ry embolis m\\.br\\\\ .br\\ High Dose High risk patient s with mechani francia 2.5 - 3.5\\.br \\ heart valves PTT Observa Value Referen Units Interpr Notes Date tion ce etation Range Activat 27.6 24.4 - second( No Therape Feb 07 ed 35.0 s) informa utic 2013 partial tion in range 11:00 source for AM thrombp data direct lastin thrombi time n (aPTT) inhibit in ors: Blood Argatro by ban is Coagula 1.5 to tion 3 times assay the aPTT baselin e. Lepirud in is 1.5 to 2 times the aPTT baselin e. The aPTT should not exceed 100 seconds .\\.br\\T he dosage of Argatro ban should be decreas ed in patient s with hepatic impairm ent. The dosage of Lepirud in should be decreas ed in renal insuffi ciency. \\.br\\\\. br\\The aPTT is no longer the appropr iate test to monitor unfract ionated heparin anticoa gulatio n. Hemogram Observa Value Referen Units Interpr Notes Date tion ce etation Range LEUKOCY 7.5 4.0 - x10(3)/ No No Feb 07 MARIBETH 11.0 mcL informa informa 2013 tion in tion in 10:47 source source AM data data Erythro 3.93 3.80 - x10(6)/ No No Feb 07 cytes 5.10 mcL informa informa 2013 [#/volu tion in tion in 10:47 me] in source source AM Blood data data by Automat ed count Hemoglo 11.6 12.0 - gm/dL Low No Feb 07 bin 15.6 informa 2013 [Mass/v tion in 10:47 olume] source AM in data Blood Hematoc 34.8 35.7 - % Low No Feb 07 rit 45.9 informa 2013 [Volume tion in 10:47 source AM Fractio data n] of Blood by Automat ed count Erythro 88.6 82.5 - fL No No Feb 07 cyte 99.8 informa informa 2013 mean tion in tion in 10:47 corp[facility] source source AM ular data data volume [Entiti c volume] by Automat ed count Erythro 29.6 27.0 - pg No No Feb 07 cyte 34.3 informa informa 2013 mean tion in tion in 10:47 corp[facility] source source AM ular data data hemoglo bin [Entiti c mass] by Automat ed count Erythro 33.4 32.1 - gm/dL No No Feb 07 cyte 35.3 informa informa 2013 mean tion in tion in 10:47 [facility] source source AM ular data data hemoglo bin concent ration [Mass/v olume] by Automat ed count Erythro 14.2 11.5 - % No No Feb 07 cyte 15.0 informa informa 2013 distrib tion in tion in 10:47 ution source source AM width data data [Ratio] by Automat ed count Platele 241 144 - x10(3)/ No No Feb 2 ts 423 mcL informa informa 2013 [#/volu tion in tion in 10:47 me] in source source AM Blood data data by Automat ed count MPV 9.1 6.8 - fL No No Feb 07 10.8 informa informa 2013 tion in tion in 10:47 source source AM data data PLT Count Observa Value Referen Units Interpr Notes Date tion ce etation Range Platele 241 144 - x10(3)/ No No Feb 2 ts 423 mcL informa informa 2013 [#/volu tion in tion in 10:47 me] in source source AM Blood data data by Automat ed count MPV 9.1 6.8 - fL No No Feb 07 10.8 informa informa 2013 tion in ti in 10:47 source source AM data data PN US OB FOLLOW UP TRANSABDOMINAL APPROACH EACH GESTATION Observa Value Referen Units Interpr Notes Date tion ce etation Range Obstetr No No No No Feb 07 ic informa informa informa informa 2014 Ultraso tion in tion in tion in tion in und source source source source Report\\ data data data data .br\\Det michael Survey\\ .br\\Ref erral from:\\. br\\Dr. MYKE PRECIADO [facility] are\\.br \\SEP Laboris ts [address]\\. br\\[address] [place] [address]\\. br\\Fami ly [employer] \\.br\\[place] [address] Reading Room \\.br\\P sidney: Fax \\.br\\F ax: \\.br\\- ------- ------- ------- ------- ------- ------- ------- ------- ------- ------\\ .br\\PAT IENT INFORMA TION:\\. br\\Name : MAKENZIE ARGUETA MR#: [id number] 6\\.br\\A ge: 23 y/o Exam Date: 4\\.br\\D OB: 991 Visit #: 6\\.br\\L MP: 013 Locatio n: [facility]\\.br\\ [facility] are-- [place]\\.br\\# Fetuses : 1\\.br\\I NDICATI ONS: Follow- up oligohy dramnio s, hyperte nsion\\. br\\---- ------- ------- ------- ------- ------- ------- ------- ------- ------- ---\\.br \\PHYSIC AL EXAM:\\. br\\Heig ht: 5' 6"\\.br\\ Pre-Pre gnancy Weight: 198 lbs.\\.b r\\Pre-P regnanc y BMI: 32.0 (Obese) \\.br\\Cu rrent Weight: 256 lbs.\\.b r\\MEDIC AL HISTORY :\\.br\\D iabetes : No\\.br\\ Other/C omments : Meds-PN V, Phenerg an G1 FT failure \\.br\\to progres s preecla mpsia cesarea n, G2\\.br\\ FT repeat cesarea n\\.br\\- ------- ------- ------- ------- ------- ------- ------- ------- ------- ------\\ .br\\CHELA ING:\\.b r\\Assig diana GA\\.br\\ GA by LMP GA by US (LMP) TO\\.br \\36 5/7 wks 32 1/7 wks 36 5/7 wks 03/02/14 \\.br\\BI OMETRY: \\.br\\BP D: 77.6 mm 31 1/7 wks HC: 292.1 mm 32 1/7 wks\\.br \\(<2.28 %) (<3%)\\. br\\Femu r: 63.6 mm 32 6/7 wks AC: 298.2 mm 33 6/7 wks\\.br \\(7%) (11%)\\. br\\HC/A C: 0.98 (0.99-1 .23)\\.b r\\EFW: 2111 gms 4 lbs 10 oz\\.br\\ (<10%)\\ .br\\Fet al Heart Rate: 167 bpm FL/AC: 0.21\\.b r\\HL/BP D: 0.73 FL/BPD: 0.81\\.b r\\Left Kidney: [id number] 9mm Right Kidney: [id number] 5mm\\.br \\R.Pelv is:5.5m m\\.br\\H umerus: 57.0 mm 33\\.br\\ 0/7 (8%)\\.b r\\PRESE NTATION /CORD/P LACENTA /FLUID/ CERVIX: \\.br\\Pr esentat ion: Transve rse, spine up, head left\\.b r\\Place nta: Anterio r. There Is No Evidenc e Of Placent a Previa. \\.br\\Gr bryce 1\\.br\\A mniotic Fluid: Maximum Vertica l Pocket = 2.0 cm. (NIKHIL=3. 2 cm)\\.br \\ ANATOMI FRANCIA SURVEY: \\.br\\No rmal\\.b r\\----- -\\.br\\C alvariu m Neck Anatomy \\.br\\Fo ur Chamber View RVOT\\.b r\\Cardi ac [place] Cardiac Positio n\\.br\\F etal Heart Rate Diaphra gm\\.br\\ Ventral Wall Stomach \\.br\\Ki dney - Left Kidney - Right\\. br\\Blad bar Humerus - Left\\.b r\\Humer us - Right Forearm - Right\\. br\\Hand - Right Femur - Left\\.b r\\Femur - Right Lower Leg - Left\\.b r\\Lower Leg - Right\\. br\\Subo ptimal\\ .br\\--- ------- \\.br\\In tracran ial Anatomy Face\\.b r\\Cervi francia Spine Thoraci c Spine\\. br\\Lumb ar Spine Sacrum\\ .br\\Jerardo t - Left Foot - Right\\. br\\Not Visuali zed\\.br \\------ ------- -\\.br\\L ateral Ventric les Cerebel lum\\.br \\Choroi d Plexus Cistern a Magna\\. br\\Midl ine Falx Cavum Septum Pelluci dum\\.br \\Profil e Palate\\ .br\\Nos e Lips\\.b r\\LVOT Three Vessel View\\.b r\\Aorti c Arch Forearm - Left\\.b r\\Hand - Left Fingers - Left\\.b r\\Finge rs - Right Toes - Left\\.b r\\Toes - Right\\. br\\Abno rmal\\.b r\\----- ---\\.br \\None identif ied\\.br \\OFFICE MACHINE SERVICER FINDING S:\\.br\\ Ovaries : Right: - 23 x 18 x 13 mm.\\.br \\EFW Summary Table\\. br\\Exam Date Fetus # EFW Percent ile\\.br \\------ --- ------- ---- ------- ---\\.br \\02/07/14 1 2111 <10 %\\.br\\ 1 505 38 %\\.br\\ 1 373 %\\.br\\A MNIOTIC FLUID VOLUME: \\.br\\To lou NIKHIL: 3.2 cm. <5th percent ile. Maximum \\.br\\Ve rtical Pocket: 2.0 cm\\.br\\ BIOPHYS ICAL PROFILE :\\.br\\6 out of 8 0 Points for: Amnioti c Fluid. 2 Points for:\\.b r\\Tone, Movemen t, Breathi ng.\\.br \\DOPPLE R STUDIES :\\.br\\U mbilica l Artery: S/D Ratio = 2.0. Assessm ent: Normal\\ .br\\--- ------- ------- ------- ------- ------- ------- ------- ------- ------- ----\\.b r\\COMME NTS:\\.b r\\Visua lizatio n of anatomy is limited by advance d gestati onal\\.b r\\age, materna l body habitus /obesit y, subopti mal positio n,\\.br\\ oligohy dramnio s.\\.br\\ The biometr ic measure ments are consist ent with IUGR. The\\.br \\amniot ic fluid volume is decreas ed measuri ng 3.2 cm. No gross\\. br\\feta l anatomi c abnorma lities are identif ied, however most of the\\.br \\anatom ic structu res were subopti lorelei visuali zed. The BPP score is\\.br\\ 01/14 with 2 points off for no 2 cm x 2 cm pocket of amnioti c fluid.\\ .br\\The umbilic al artery Doppler evaluat ion was normal. \\.br\\Gi torri the finding of IUGR with persist ent oligohy dramnio s, this\\.b r\\fetus is at markedl y increas ed risk for adverse pregnan cy outcome s\\.br\\i ncludin g IUFD. I recomme nd deliver y now.\\.b r\\The patient is an inpatie nt and a prelimi nary report was sent with\\.b r\\the patient in her chart. In additio n, I discuss ed these finding s\\.br\\a nd recomme ndation s with Dr. Rowland over the phone.\\ .br\\Maira ctronic ally signed by MALINDA \\.br\\SHAYY De La Torre MD on 4 at\\.br\\ 11:32 am\\.br\\ ------- ------- ------- ------- ------\\ .br\\MAN RUBIO MD\\.br\\ ------- ------- ------- ------- ------- --\\.br\\ Sonogra pher: Linda Frias , RT, RDMS PN US Doppler Umbilical Artery w BPP without NST Observa Value Referen Units Interpr Notes Date tion ce etation Range Obstetr No No No No Feb 2 ic informa informa informa informa 2013 Ultraso tion in tion in tion in tion in und source source source source Report\\ data data data data .br\\Ant enatal Testing \\.br\\Re janel from:\\. br\\Dr. MYKE PRECIADO [facility] are\\.br \\[facility] [address]\\. br\\[address] [place] [address]\\. br\\Fami ly Birth[facility] kelsi [employer] [phone]\\.br\\[place] [address] Reading Room \\.br\\P sidney: [phone] Fax \\.br\\F ax: \\.br\\- ------- ------- ------- ------- ------- ------- ------- ------- ------- ------\\ .br\\PAT IENT INFORMA TION:\\. br\\Name : MAKENZIE ARGUETA MR#: [id number]\\.br\\A ge: 23 y/o Exam Date: 4\\.br\\D OB: 991 Visit #: 5\\.br\\L MP: 013 Locatio n: [facility]\\.br\\ [facility] are-- [place]\\.br\\# Fetuses : 1\\.br\\I NDICATI ONS: Follow- up oligohy dramnio s, hyperte nsion\\. br\\---- ------- ------- ------- ------- ------- ------- ------- ------- ------- ---\\.br \\DATING :\\.br\\A ssigned GA\\.br\\ GA by LMP (LMP) TO\\.br \\36 12/13 wks 36 12/13 wks 03/02/14 \\.br\\-- ------- ------- ------- ------- ------- ------- ------- ------- ------- -----\\. br\\COMM ENTS:\\. br\\See OB FU exam for report. \\.br\\Spenser pineda jasbir signed by MALINDA \\.br\\SHAYY De La Torre MD on 4 at\\.br\\ 10:04 am\\.br\\ ------- ------- ------- ------- ------\\ .br\\MAN RUBIO MD\\.br\\ ------- ------- ------- ------- ------- ------- ------- ------- ------- ------- \\.br\\So nog er: Linda Frias , RT, RDMS Hemogram Observa Value Referen Units Interpr Notes Date tion ce etation Range LEUKOCY 10.6 4.0 - x10(3)/ No No Feb 06 MARIBETH 11.0 [facility] informa informa 2013 tion in tion in 7:55 PM source source data data Erythro 3.89 3.80 - x10(6)/ No No Feb 06 cytes 5.10 [facility] informa informa 2013 [#/volu tion in tion in 7:55 PM me] in source source Blood data data by Automat ed count Hemoglo 11.7 12.0 - gm/dL Low No Feb 06 bin 15.6 informa 2013 [Mass/v tion in 7:55 PM olume] source in data Blood Hematoc 34.0 35.7 - % Low No Feb 06 rit 45.9 informa 2013 [Volume tion in 7:55 PM source Fractio data n] of Blood by Automat ed count Erythro 87.3 82.5 - fL No No Feb 06 cyte 99.8 informa informa 2014 mean tion in tion in 7:55 PM corpusc source source ular data data volume [Entiti c volume] by Automat ed count Erythro 30.0 27.0 - pg No No Feb 06 cyte 34.3 informa informa 2014 mean tion in tion in 7:55 PM corpusc source source ular data data hemoglo bin [Entiti c mass] by Automat ed count Erythro 34.4 32.1 - gm/dL No No Feb 06 cyte 35.3 informa informa 2014 mean tion in tion in 7:55 PM corpusc source source ular data data hemoglo bin concent ration [Mass/v olume] by Automat ed count Erythro 14.3 11.5 - % No No Feb 06 cyte 15.0 informa informa 2014 distrib tion in tion in 7:55 PM ution source source width data data [Ratio] by Automat ed count Platele 261 144 - x10(3)/ No No Feb 06 ts 423 mcL informa informa 2013 [#/volu tion in tion in 7:55 PM me] in source source Blood data data by Automat ed count MPV 9.4 6.8 - fL No No Feb 06 10.8 informa informa 2013 tion in tion in 7:55 PM source source data data ABSC IgG Observa Value Referen Units Interpr Notes Date tion ce etation Range ABSC Negativ No No No No Feb 06 IgG Int e informa informa informa informa 2013 tion in tion in tion in tion in 11:06 source source source source PM data data data data ABORh Observa Value Referen Units Interpr Notes Date tion ce etation Range ABORh A POS No No No No Feb 06 Int informa informa informa informa 2013 tion in tion in tion in tion in 11:06 source source source source PM data data data data DOA Screen Observa Value Referen Units Interpr Notes Date tion ce etation Range Cannabi Absent 50 No No No Feb 06 noid ng/mL informa informa informa 2014 Screen tion in tion in tion in 9:25 PM source source source data data data Benzodi Absent 200 No No No Feb 06 azepine ng/mL informa informa informa 2013 s tion in tion in tion in 9:25 PM Screen source source source data data data Cocaine Absent 150 No No No Feb 06 Screen ng/mL informa informa informa 2014 tion in tion in tion in 9:25 PM source source source data data data Opiate Absent 300 No No No Feb 06 300 ng/mL informa informa informa 2013 Screen tion in tion in tion in 9:25 PM source source source data data data Barbitu Absent 200 No No No Feb 06 rate ng/mL informa informa informa 2013 Screen tion in tion in tion in 9:25 PM source source source data data data Ampheta Absent 500 No No No Feb 06 mine ng/mL informa informa informa 2013 Screen tion in tion in tion in 9:25 PM source source source data data data Phencyc Absent 25 No No No Feb 06 lidine ng/mL informa informa informa 2013 Screen tion in tion in tion in 9:25 PM source source source data data data Methado Absent 300 No No No Feb 06 ne ng/mL informa informa informa 2013 Screen tion in tion in tion in 9:25 PM source source source data data data Oxycodo Absent 100 No No No Feb 06 ne ng/mL informa informa informa 2013 Screen tion in tion in tion in 9:25 PM source source source data data data 6 AM Absent 10 No No No Feb 06 (Heroin ng/mL informa informa informa 2013 ) tion in tion in tion in 9:25 PM Screen source source source data data data Bupreno Absent 5 ng/mL No No No Feb 06 rphine informa informa informa 2013 Screen tion in tion in tion in 9:25 PM source source source data data data Creatin 282.6 No mg/dL No \\.br\\Gr Feb 06 ine Ur informa informa eater 2014 tion in tion in than 9:25 PM source source 20: data data Consist ent with valid sample\\ .br\\Gre ater than 2 but less than 20: Possibl e dilutio n\\.br\\L ess than 2: Questio nable valid sample Procedu These No No No No Ambrose 1 re Note drug informa informa informa informa 2013 Screen classes tion in tion in tion in tion in 9:25 PM have source source source source been data data data data screene d by sammie de la cruz and are for medical purpose s only. The results should not be used for non-med ical purpose s. If confirm ation is desired , please place a separat e order for each drug confirm ation. Specime ns will be saved for 3 busines s days should additio nal orders/ testing be desired . Uric Acid Observa Value Referen Units Interpr Notes Date tion ce etation Range Urate 6.7 2.4 - mg/dL High No Feb 06 [Mass/v 5.7 informa 2013 olume] tion in 6:27 PM in source Serum data or Plasma Hemogram Observa Value Referen Units Interpr Notes Date tion ce etation Range LEUKOCY 11.9 4.0 - x10(3)/ High No Feb 06 MARIBETH 11.0 mcL informa 2013 tion in 6:10 PM source data Erythro 3.95 3.80 - x10(6)/ No No Feb 06 cytes 5.10 mcL informa informa 2013 [#/volu tion in tion in 6:10 PM me] in source source Blood data data by Automat ed count Hemoglo 11.9 12.0 - gm/dL Low No Feb 06 bin 15.6 informa 2013 [Mass/v tion in 6:10 PM olume] source in data Blood Hematoc 34.7 35.7 - % Low No Feb 06 rit 45.9 informa 2013 [Volume tion in 6:10 PM source Fractio data n] of Blood by Automat ed count Erythro 87.9 82.5 - fL No No Feb 06 cyte 99.8 informa informa 2013 mean tion in tion in 6:10 PM corpusc source source ular data data volume [Entiti c volume] by Automat ed count Erythro 30.0 27.0 - pg No No Feb 06 cyte 34.3 informa informa 2013 mean tion in tion in 6:10 PM corpusc source source ular data data hemoglo bin [Entiti c mass] by Automat ed count Erythro 34.1 32.1 - gm/dL No No Feb 06 cyte 35.3 informa informa 2013 mean tion in tion in 6:10 PM corpusc source source ular data data hemoglo bin concent ration [Mass/v olume] by Automat ed count Erythro 14.1 11.5 - % No No Feb 06 cyte 15.0 informa informa 2014 distrib tion in tion in 6:10 PM ution source source width data data [Ratio] by Automat ed count Platele 261 144 - x10(3)/ No No Feb 06 ts 423 mcL informa informa 2013 [#/volu tion in tion in 6:10 PM me] in source source Blood data data by Automat ed count MPV 9.1 6.8 - fL No No Feb 06 10.8 informa informa 2014 tion in tion in 6:10 PM source source data data UA Observa Value Referen Units Interpr Notes Date tion ce etation Range UA Dark No No No No Feb 06 Color Yellow informa informa informa informa 2013 tion in tion in tion in tion in 5:31 PM source source source source data data data data UA Hazy Clear No Abnorma No Feb 06 Appear informa l informa 2013 tion in tion in 5:31 PM source source data data UA Negativ Negativ No No No Feb 06 Glucose e e informa informa informa 2013 tion in tion in tion in 5:31 PM source source source data data data UA 2+ (40 Negativ No Abnorma No Feb 06 Ketones mg/dl) e informa l informa 2013 tion in tion in 5:31 PM source source data data UA Negativ Negativ No No No Feb 06 Blood e e informa informa informa 2013 tion in tion in tion in 5:31 PM source source source data data data UA pH 6.0 4.8 - No No No Feb 06 8.0 informa informa informa 2013 tion in tion in tion in 5:31 PM source source source data data data UA 50 Negativ No Abnorma No Feb 06 Protein mg/dl e informa l informa 2013 tion in tion in 5:31 PM source source data data UA >12 <=1 No Abnorma No Feb 06 Urobili mg/dl mg/dl informa l informa 2014 nogen tion in tion in 5:31 PM source source data data UA Negativ Negativ No No No Feb 06 Nitrite e e informa informa informa 2014 tion in tion in tion in 5:31 PM source source source data data data UA Leuk Trace Negativ No Abnorma No Feb 06 Est e informa l informa 2014 tion in tion in 5:31 PM source source data data UA Spec 1.027 1.001 - No No No Feb 06 Grav 1.035 informa informa informa 2014 tion in tion in tion in 5:31 PM source source source data data data UA WBC 6 0 - 4 /HPF High No Feb 06 informa 2014 tion in 5:31 PM source data UA RBC 2 0 - 3 /HPF No No Feb 06 informa informa 2014 tion in tion in 5:31 PM source source data data UA 4+ No No No No Feb 06 Squam informa informa informa informa 2014 Epi tion in tion in tion in tion in 5:31 PM source source source source data data data data UA 3+ No No No No Feb 06 Mucous informa informa informa informa 2014 tion in tion in tion in tion in 5:31 PM source source source source data data data data UA Trace No No No No Feb 06 Amorph informa informa informa informa 2014 tion in tion in tion in tion in 5:31 PM source source source source data data data data UA Trace No No Abnorma No Feb 06 Bacteri informa informa l informa 2014 a tion in tion in tion in 5:31 PM source source source data data data PN US BIOPHYSICAL PROFILE WITHOUT NST SINGLE OR FIRST GESTATION Observa Value Referen Units Interpr Notes Date tion ce etation Range Obstetr No No No No Feb 06 ic informa informa informa informa 2014 Ultraso tion in tion in tion in tion in und source source source source Report\\ data data data data .br\\Ant enatal Testing \\.br\\Re ferral from:\\. br\\Dr. MERVIN RUSHING [facility] are\\.br \\[facility] [address]\\. br\\[address] [place] [address]\\. br\\[place] [address] [employer] \\.br\\P sidney: Ext. [phone] Reading Room \\.br\\F ax: Fax \\.br\\- ------- ------- ------- ------- ------- ------- ------- ------- ------- ------\\ .br\\PAT IENT INFORMA TION:\\. br\\Name : MAKENZIE ARGUETA MR#: [id number] 6\\.br\\A ge: 23 y/o Exam Date: 4\\.br\\D OB: 991 Visit #: 4\\.br\\L MP: 013 [facility]atio n[facility]\\.br\\ [facility] are-- [place]\\.br\\# Fetuses : 1\\.br\\I NDICATI ON: Decreas ed movemen t and non-brittny ctive nst, triage\\ .br\\pat ient\\.b r\\----- ------- ------- ------- ------- ------- ------- ------- ------- ------- --\\.br\\ PHYSICA L EXAM:\\. br\\Heig ht: 5' 6"\\.br\\ Pre-Pre gnancy Weight: 198 lbs.\\.b r\\Pre-P regnanc y BMI: 32.0 (Obese) \\.br\\ME DICAL HISTORY :\\.br\\D iabetes : No\\.br\\ Other/C omments : Meds-PN V G1 FT failure to\\.br\\ progres s preecla mpsia cesarea n, G2 FT\\.br\\ repeat cesarea n\\.br\\- ------- ------- ------- ------- ------- ------- ------- ------- ------- ------\\ .br\\CHELA ING:\\.b r\\Assig diana GA\\.br\\ GA by LMP (LMP) TO\\.br \\36 47 wks 36 4/7 wks 03/02/14 \\.br\\GA ESENTAT ION/COR D/PLACE NTA/CER VIX:\\.b r\\Prese ntation : Breech\\ .br\\Deedee centa: Anterio r. There Is No Evidenc e Of Placent a Previa. \\.br\\Gr bryce 2\\.br\\A MNIOTIC FLUID VOLUME: \\.br\\OL IGOHYDR AMNIOS Total NIKHIL: 2.6 cm. Subject alvarez AF Volume: \\.br\\Ma rkedly Decreas ed. <5th percent ile. Maximum \\.br\\Ve rtical Pocket: 1.4 cm\\.br\\ BIOPHYS ICAL PROFILE :\\.br\\6 out of 8 0 Points for: Amnioti c Fluid. 2 Points for:\\.b r\\Tone, Movemen t, Breathi ng.\\.br \\------ ------- ------- ------- ------- ------- ------- ------- ------- ------- -\\.br\\C OMMENTS :\\.br\\T he BPP was 6/8 with 2 points off for no 2 cm x 2 cm pocket of\\.br\\ amnioti c fluid.\\ .br\\Sev ere oligohy dramnio s is identif ied today. Of note, this patient \\.br\\lynn s not had an ultraso und for biometr y in several months. \\.br\\Ol igohydr amnios has been associa kaila with IUGR and adverse pregnan cy\\.br\\ outcome s includi ng IUFD.\\. br\\I recomme nd admissi on, oral hydrati on or IV hydrati on with\\.b r\\hypot onic IV fluids, repeat BPP with NST tomorro w. At that time, I\\.br\\r ecommen d a complet e OB ultraso und with umbilic al artery Doppler \\.br\\ev aluatio n. We typical ly attempt to reach 37-38 weeks in patient s\\.br\\w ith oligohy dramnio s as long as the fetus is well-gr own,\\.b r\\demon strates reassur ing NST and BPP scores, and has normal\\ .br\\umb ilical artery Doppler wavefor msChaitanya Blackmonwi se, deliver y would be\\.br\\ indicat ed.\\.br \\These finding s and recomme ndation s were discuss ed with Dr. Wright \\.br\\ov er the phone today.\\ .br\\Maira ctronic ally signed by MALINDA \\.br\\SHAYY De La Torre MD on 4 at\\.br\\ 7:07 pm\\.br\\ ------- ------- ------- ------- ------\\ .br\\MAN RUBIO MD\\.br\\ ------- ------- ------- ------- ------- ------- ------- ------- ------- ------- \\.br\\So nograph er: Marybel Cotton RDMS PN US NIKHIL WITH NST Observa Value Referen Units Interpr Notes Date tion ce etation Range Obstetr No No No No Quentin 4 ic informa informa informa informa 2013 Ultraso tion in tion in tion in tion in und source source source source Report\\ data data data data .br\\Ant enatal Testing \\.br\\Re ferral from:\\. br\\Dr. MERVIN RUSHING [facility] are\\.br \\[facility] [address] [facility] [employer]\\. br\\[address] [facility] [address] [place] [address]\\. br\\[place] [address] [employer] \\.br\\P sidney: Ext. [phone] Reading Room [phone]\\.br\\F ax: Fax \\.br\\- ------- ------- ------- ------- ------- ------- ------- ------- ------- ------\\ .br\\PAT IENT INFORMA TION:\\. br\\Name : MAKENZIE ARGUETA MR#: [id number] 6\\.br\\A ge: 23 y/o Exam Date: 4\\.br\\D OB: 991 Visit #: 3\\.br\\L MP: 013 [facility]atio n[facility] \\.br\\ [facility] are-- [place]\\.br\\# Fetuses : 1\\.br\\I NDICATI ON: Hyperte nsion\\. br\\---- ------- ------- ------- ------- ------- ------- ------- ------- ------- ---\\.br \\PHYSIC AL EXAM:\\. br\\Heig ht: 5' 6"\\.br\\ Pre-Pre gnancy Weight: 198 lbs.\\.b r\\Pre-P regnanc y BMI: 32.0 (Obese) \\.br\\Cu rrent Weight: 257 lbs.\\.b r\\Pulse : 94\\.br\\ Blood Pressur e 1: 131/67 Semi-Fo wlers\\. br\\MEDI FRANCIA HISTORY :\\.br\\D iabetes : No\\.br\\ Other/C omments : Meds-PN V G1 FT failure to\\.br\\ progres s preecla mpsia cesarea n, G2 FT\\.br\\ repeat cesarea n\\.br\\- ------- ------- ------- ------- ------- ------- ------- ------- ------- ------\\ .br\\CHELA ING:\\.b r\\Assig diana GA\\.br\\ GA by LMP (LMP) TO\\.br \\32 5/7 wks 32 5/7 wks 03/02/14 \\.br\\GA ESENTAT ION/COR D/PLACE NTA/CER VIX:\\.b r\\Prese ntation : Cephali c\\.br\\P lacenta : Anterio r. There Is No Evidenc e Of Placent a Previa. \\.br\\Gr bryce 2\\.br\\N ON STRESS TEST:\\. br\\Reac tive Baselin e FHR: 135 bpm, Normal\\ .br\\Estephanie iabilit y: Moderat e\\.br\\P attern: Normal\\ .br\\Fet al Kick-Co unt: Count Reinfor astrid\\.br \\Acoust ic Stim: No\\.br\\ Contrac tions: No\\.br\\ Status: Reassur ing\\.br \\AMNIOT IC FLUID VOLUME: \\.br\\NO RMAL Total NIKHIL: 10.6 cm. Subject alvarez AF Volume: \\.br\\No rmal. 21st percent ile. Maximum Vertica l\\.br\\P ocket: 4.4 cm\\.br\\ ------- ------- ------- ------- ------- ------- ------- ------- ------- ------- \\.br\\CO MMENTS: \\.br\\Fe lou assessm ent begins at 12:51 and ends at 13:03.\\ .br\\The patient denies having pain. The domesti c violenc e screen is\\.br\\ negativ e. The patient does not have functio nal limitat ions. The\\.br \\patien t has no barrier s to educati on. The patient denies alcohol \\.br\\an d illicit drug use during pregnan cy. Medicat ions are reviewe d\\.br\\w ith no changes . Audible movemen ts are noted and \\. br\\move ments are perceiv ed by the patient . The patient denies having\\ .br\\hea dache, visual disturb ances, epigast lashae pain, dizzine ss or\\.br\\ swellin g. The signs and symptom s of labor, UTI, rupture of\\.br\\ membran es and preecla mpsia were reviewe d. The kick count\\. br\\prot ocol was reviewe d and the patient verbali zed underst anding. \\.br\\Th e antenat al testing was perform ed by Sharon Garner RN.\\.br \\Thank you for this referra l.\\.br\\ Electro nically signed by AILYN Sloan\\.br\\ Ciro MIXON on 4 at 2:21 pm\\.br\\ ------- ------- ------- ------- ------\\ .br\\DAISY MIXON M.D.\\.b r\\----- ------- ------- ------- ------- ------- ------- ------- ------- ------- --\\.br\\ Sonogra pher: Michelle Esparza RDMS Uric Acid Observa Value Referen Units Interpr Notes Date tion ce etation Range Urate 5.3 2.4 - mg/dL No No December 23 [Mass/v 5.7 informa informa 2013 olume] tion in tion in 8:03 PM in source source Serum data data or Plasma Lipase Observa Value Referen Units Interpr Notes Date ti ce etation Range Lipase 17 13 - 60 IU/L No New December 23 Lvl informa referen 2013 tion in ce 7:49 PM source range data is signifi cantly differe nt from previou s. Amylase Observa Value Referen Units Interpr Notes Date tion ce etation Range AMYLASE 28 28 - IU/L No No December 23 .TOTAL 100 informa informa 2013 tion in tion in 7:37 PM source source data data PTT Observa Value Referen Units Interpr Notes Date tion ce etation Range Activat 29.8 24.4 - second( No Therape December 23 ed 35.0 s) informa uti 2013 partial tion in range 7:17 PM source for thrombp data direct lastin thrombi time n (aPTT) inhibit in ors: Blood Argatro by ban is Coagula 1.5 to tion 3 times assay the aPTT baselin e. Lepirud in is 1.5 to 2 times the aPTT baselin e. The aPTT should not exceed 100 seconds .\\.br\\T he dosage of Argatro ban should be decreas ed in patient s with hepatic impairm ent. The dosage of Lepirud in should be decreas ed in renal insuffi ciency. \\.br\\\\. br\\The aPTT is no longer the appropr iate test to monitor unfract ionated heparin anticoa gulatio n. PT Observa Value Referen Units Interpr Notes Date ti ce etation Range PT 10.3 9.6 - second( No No December 23 12.6 s) informa informa 2013 tion in tion in 7:17 PM source source data data INR in 0.93 0.87 - No No Level December 23 Platele 1.13 informa informa 2013 t poor tion in tion in Therapy 7:17 PM plasma source source by data data Indicat Coagula ions tion Target assay INR Range\\. br\\\\.br \\Standa rd Dose Treatme nt and prophyl axis of venous 2.0 - 3.0\\.br \\ thrombo sis, pulmona ry embolis m\\.br\\\\ .br\\ High Dose High risk patient s with mechani francia 2.5 - 3.5\\.br \\ heart valves Hemogram Observa Value Referen Units Interpr Notes Date tion ce etation Range LEUKOCY 11.2 4.0 - x10(3)/ High No December 23 MARIBETH 11.0 mcL informa 2013 tion in 7:10 PM source data Erythro 3.73 3.80 - x10(6)/ Low No December 23 cytes 5.10 mcL informa 2013 [#/volu tion in 7:10 PM me] in source Blood data by Automat ed count Hemoglo 11.2 12.0 - gm/dL Low No December 23 bin 15.6 informa 2013 [Mass/v tion in 7:10 PM olume] source in data Blood Hematoc 33.6 35.7 - % Low No December 23 rit 45.9 informa 2013 [Volume tion in 7:10 PM source Fractio data n] of Blood by Automat ed count Erythro 90.2 82.5 - fL No No December 23 cyte 99.8 informa informa 2014 mean tion in tion in 7:10 PM corpusc source source ular data data volume [Entiti c volume] by Automat ed count Erythro 30.1 27.0 - pg No No December 23 cyte 34.3 informa informa 2013 mean tion in tion in 7:10 PM corpusc source source ular data data hemoglo bin [Entiti c mass] by Automat ed count Erythro 33.4 32.1 - gm/dL No No December 23 cyte 35.3 informa informa 2014 mean tion in tion in 7:10 PM corpusc source source ular data data hemoglo bin concent ration [Mass/v olume] by Automat ed count Erythro 13.6 11.5 - % No No December 23 cyte 15.0 informa informa 2013 distrib tion in tion in 7:10 PM ution source source width data data [Ratio] by Automat ed count Platele 268 144 - x10(3)/ No No December 23 ts 423 mcL informa informa 2013 [#/volu tion in tion in 7:10 PM me] in source source Blood data data by Automat ed count MPV 8.5 6.8 - fL No No December 23 10.8 informa informa 2013 tion in tion in 7:10 PM source source data data DOA Screen Observa Value Referen Units Interpr Notes Date tion ce etation Range Cannabi Absent 50 No No No December 23 noid ng/mL informa informa informa 2013 Screen tion in tion in tion in 6:50 PM source source source data data data Benzodi Absent 200 No No No December 23 azepine ng/mL informa informa informa 2013 s tion in tion in tion in 6:50 PM Screen source source source data data data Cocaine Absent 150 No No No December 23 Screen ng/mL informa informa informa 2014 tion in tion in tion in 6:50 PM source source source data data data Opiate Absent 300 No No No December 23 300 ng/mL informa informa informa 2014 Screen tion in tion in tion in 6:50 PM source source source data data data Barbitu Absent 200 No No No December 17 rate ng/mL informa informa informa 2014 Screen tion in tion in tion in 6:50 PM source source source data data data Ampheta Absent 500 No No No December 23 mine ng/mL informa informa informa 2014 Screen tion in tion in tion in 6:50 PM source source source data data data Phencyc Absent 25 No No No December 23 lidine ng/mL informa informa informa 2014 Screen tion in tion in tion in 6:50 PM source source source data data data Methado Absent 300 No No No December 23 ne ng/mL informa informa informa 2013 Screen tion in tion in tion in 6:50 PM source source source data data data Oxycodo Absent 100 No No No December 17 ne ng/mL informa informa informa 2014 Screen tion in tion in tion in 6:50 PM source source source data data data 6 AM Absent 10 No No No December 23 (Heroin ng/mL informa informa informa 2013 ) tion in tion in tion in 6:50 PM Screen source source source data data data Bupreno Absent 5 ng/mL No No No December 23 rphine informa informa informa 2014 Screen tion in tion in tion in 6:50 PM source source source data data data Creatin 98.9 No mg/dL No \\.br\\Gr December 23 ine Ur informa informa eater 2014 tion in tion in than 6:50 PM source source 20: data data Consist ent with valid sample\\ .br\\Gre ater than 2 but less than 20: Possibl e dilutio n\\.br\\L ess than 2: Questio nable valid sample Procedu These No No No No December 23 re Note drug informa informa informa informa 2013 Screen classes tion in tion in tion in in 6:50 PM have source source source source been data data data data screene d by sammie de la cruz and are for medical purpose s only. The results should not be used for non-med ical purpose s. If confirm ation is desired , please place a separat e order for each drug confirm ation. Specime ns will be saved for 3 busines s days should additio nal orders/ testing be desired . UA Observa Value Referen Units Interpr Notes Date tion ce etation Range UA Yellow No No No No December 23 Color informa informa informa informa 2013 tion in tion in tion in in 6:17 PM source source source source data data data data UA Clear Clear No No No December 23 Appear informa informa informa 2013 tion in tion in in 6:17 PM source source source data data data UA Negativ Negativ No No No December 23 Glucose e e informa informa informa 2013 tion in tion in in 6:17 PM source source source data data data UA Negativ Negativ No No No December 23 Ketones e e informa informa informa 2013 tion in tion in in 6:17 PM source source source data data data UA Negativ Negativ No No No December 23 Blood e e informa informa informa 2013 tion in tion in in 6:17 PM source source source data data data UA pH 6.0 4.8 - No No No December 23 8.0 informa informa informa 2013 tion in tion in ti in 6:17 PM source source source data data data UA Negativ Negativ No No No December 23 Protein e e informa informa informa 2013 tion in tion in ti in 6:17 PM source source source data data data UA Normal <=1 No No No December 23 Urobili mg/dl informa informa informa 2013 nogen tion in tion in ti in 6:17 PM source source source data data data UA Negativ Negativ No No No December 23 Nitrite e e informa informa informa 2013 tion in tion in tion in 6:17 PM source source source data data data UA Leuk Negativ Negativ No No No December 23 Est e e informa informa informa 2014 tion in tion in tion in 6:17 PM source source source data data data UA Spec 1.019 1.001 - No No No December 23 Grav 1.035 informa informa informa 2013 tion in tion in tion in 6:17 PM source source source data data data PN US OB FOLLOW UP TRANSABDOMINAL APPROACH EACH GESTATION Observa Value Referen Units Interpr Notes Date tion ce etation Range Obstetr No No No No Nov 01 ic informa informa informa informa 2014 Ultraso tion in tion in tion in tion in und source source source source Report\\ data data data data .br\\Det michael Survey\\ .br\\Ref erral from:\\. br\\Dr. MERVIN RUSHING [facility] are\\.br \\[address]\\. br\\[address] [place], [place] [address] [address]\\. br\\[place] [address] Technologist Development [phone]\\.br\\P sidney: Ext. 6616 Reading Room [phone]\\.br\\F ax: [phone] Fax \\.br\\- ------- ------- ------- ------- ------- ------- ------- ------- ------- ------\\ .br\\PAT IENT INFORMA TION:\\. br\\Name : MAKENZIE ARGUETA MR#: [id number] 6\\.br\\A ge: 23 y/o Exam Date: 11/02/19 14\\.br\\ : 991 Visit #: 2\\.br\\L MP: 013 Locatio n: [facility]\\.br\\ [facility] are-- [place]\\.br\\# Fetuses : 1\\.br\\I NDICATI ON: Follow up anatomy \\.br\\-- ------- ------- ------- ------- ------- ------- ------- ------- ------- -----\\. br\\DATI NG:\\.br \\Assign ed GA\\.br\\ GA by LMP GA by US (LMP) TO\\.br \\22 5/7 wks 22 /7 wks 22 5/7 wks 03/02/14 \\.br\\BI OMETRY: \\.br\\BP D: 54.7 mm 22 /7 wks HC: 206.1 mm 22 /7 wks\\.br \\(46%) (38%)\\. br\\Femu r: 38.1 mm 22 7 wks AC: 170.8 mm 22 0/7 wks\\.br \\(28%) (20%)\\. br\\HC/A C: 1.21 (0.99-1 .23)\\.b r\\EFW: 505 gms 1 lbs 2 oz (38%)\\. br\\Lat Ventric les: R-5.0 mm Cerebel lum: 22.6 mm (\\.br\\C isterna Magna: 5.4 mm FL/AC: 0.22\\.b r\\HL/BP D: 0.65 FL/BPD: 0.69\\.b r\\Humer us: 36.0 mm 22\\.br\\ 10/13 (40%)\\. br\\PRES ENTATIO N/CORD/ PLACENT A/FLUID /CERVIX :\\.br\\P resenta tion: Cephali c\\.br\\U mbilica l Cord: 3 Vessel Cord.\\. br\\Plac enta: Anterio r. There Is No Evidenc e Of Placent a Previa. \\.br\\Gr bryce 1\\.br\\A mniotic Fluid: Maximum Vertica l Pocket = 4.3 cm. Subject alvarez AF\\.br\\ Volume: Normal. \\.br\\FE LOU ANATOMI FRANCIA SURVEY: \\.br\\No rmal\\.b r\\----- -\\.br\\C alvariu m Intracr anial Anatomy \\.br\\La teral Ventric les Cerebel lum\\.br \\Choroi d Plexus Cistern a Magna\\. br\\Midl ine Falx Nose\\.b r\\Lips Cervica l Spine\\. br\\Thor acic Spine Lumbar Spine\\. br\\Sacr um Four Chamber View\\.b r\\RVOT LVOT\\.b r\\Aorti c Arch Cardiac Shipman\\.b r\\Cardi ac Positio n Heart Rate\\.b r\\Diaph ragm IVC\\.br \\SVC Ductal Arch\\.b r\\Ventr al Wall Stomach \\.br\\Bl adder Bowel\\. br\\Uppe r Extremi ties Lower Extremi ties\\.b r\\Subop timal\\. br\\---- ------\\ .br\\Pro file Face\\.b r\\Three Vessel View\\.b r\\Not Visuali zed\\.br \\------ ------- -\\.br\\C avum Septum Pelluci dum\\.br \\Abnorm al\\.br\\ ------- -\\.br\\K idney - Left (PYELEC TASIS-4 .5 MM)\\.br \\Kidney - Right (PYELEC TASIS-6 .2 MM)\\.br \\OFFICE MACHINE SERVICER FINDING S:\\.br\\ Uterus: Normal\\ .br\\Ova chrissie: Left: Normal\\ .br\\Rig ht: Normal\\ .br\\EFW Summary Table\\. br\\Exam Date Fetus # EFW Percent ile\\.br \\------ --- ------- ---- ------- ---\\.br \\ 4 1 505 38 %\\.br\\ 1 373 %\\.br\\A MNIOTIC FLUID VOLUME: \\.br\\NO RMAL Subject alvarez AF Volume: Normal. Maximum Vertica l\\.br\\P ocket: 4.3 cm\\.br\\ ------- ------- ------- ------- ------- ------- ------- ------- ------- ------- \\.br\\CO MMENTS: \\.br\\Vi sualiza tion of anatomy is limited by materna l body\\.b r\\habit us/obes ity, subopti mal positio n.\\.br\\ The biometr ic measure ments are consist ent with menstru al\\.br\\ dates. No gross anatomi c abnorma lities are identif ied. The\\.br \\right renal pelvis measure s 0.62 cm and the left renal\\. br\\pelv is measure s 0.45 cm.\\.br \\MFM Labeling Specialist ing:\\.b r\\Dr. Acuna spoke with the patient . Pyelect asis is identif ied. The\\.br \\bladde r is normal in appeara nce. The ureters are not visuali zed.\\.b r\\Possi ble etiolog ies include physiol ogic, reflux, partial \\.br\\ob structi on, most likely at the UP junctio n. This may\\.br \\sponta neously resolve before or after , it may persist , or it\\.br\\ may worsen. \\.br\\Re commend repeat ultraso und at 34 weeks. If the pyelect asis\\.b r\\persi sts, recomme nd the have a renal ultraso und within the\\.br \\first two weeks after .\\ .br\\The finding s and recomme ndation s were discuss ed with the patient .\\.br\\T shital you for this referra l.\\.br\\ 10 min face to face time\\.b r\\Elect dorina ly signed by PIERRE \\.br\\CO Ciro GARIBAY on 11/02/19 14 at\\.br\\ 10:53 am\\.br\\ ------- ------- ------- ------- ------\\ .br\\ELVIS ACUNA M.D.\\.b r\\----- ------- ------- ------- ------\\ .br\\Son ozzy r: Emmie Lentz, AUGUSTO PN US OB DETAIL ANATOMY SINGLE OR FIRST GESTATION Observa Value Referen Units Interpr Notes Date tion ce etation Range Obstetr No No No No Mar 7 ic informa informa informa informa 2013 Ultraso tion in tion in tion in tion in und source source source source Report\\ data data data data .br\\Det michael Survey\\ .br\\Ref erral from:\\. br\\Dr. MERVIN RUSHING [facility] are\\.br \\[facility] [address]\\. br\\[address] [place] [address]\\. br\\[place] [address] Technologist Development [phone]\\.br\\P sidney: Ext. 6616 Reading Room [phone]\\.br\\F ax: Fax \\.br\\- ------- ------- ------- ------- ------- ------- ------- ------- ------- ------\\ .br\\PAT IENT INFORMA TION:\\. br\\Name : MAKENZIE ARGUETA MR#: [id number] 6\\.br\\A ge: 23 y/o Exam Date: 4\\.br\\D OB: 991 Visit #: 1\\.br\\L MP: 013 Locatio n: [facility]\\.br\\ [facility] are-- [place]\\.br\\# Fetuses : 1\\.br\\I NDICATI ON: Exclude anomali es\\.br\\ ------- ------- ------- ------- ------- ------- ------- ------- ------- ------- \\.br\\PH YSICAL EXAM:\\. br\\Heig ht: 5' 6"\\.br\\ Pre-Pre gnancy Weight: 198 lbs.\\.b r\\Pre-P regnanc y BMI: 32.0 (Obese) \\.br\\Cu rrent Weight: 204 lbs.\\.b r\\MEDIC AL HISTORY :\\.br\\D iabetes : No\\.br\\ Other/C omments : Meds-PN V G1 FT failure to\\.br\\ progres s preecla mpsia cesarea n, G2 FT\\.br\\ repeat cesarea n\\.br\\- ------- ------- ------- ------- ------- ------- ------- ------- ------- ------\\ .br\\CHELA ING:\\.b r\\Assig diana GA\\.br\\ GA by LMP GA by US (LMP) TO\\.br \\20 0/7 wks 20 0/7 wks 20 0/7 wks 03/02/14 \\.br\\BI OMETRY: \\.br\\BP D: 47.2 mm 20 2/7 wks HC: 177.1 mm 20 1/7 wks\\.br \\(60%) (50%)\\. br\\Femu r: 31.9 mm 19 6/7 wks AC: 155.6 mm 20 5/7 wks\\.br \\(35%) (67%)\\. br\\HC/A C: 1.14 (0.99-1 .23)\\.b r\\EFW: 373 gms 0 lbs 13 oz (%)\\.br \\Lat Ventric les: R-5.3 mm Cerebel lum: 19.3 mm (\\.br\\C isterna Magna: 4.9 mm Nuchal Fold: 3.07 mm\\.br\\ Heart Rate: 135 bpm FL/AC: 0.21\\.b r\\HL/BP D: 0.63 FL/BPD: 0.67\\.b r\\Humer us: 30.1 mm 19\\.br\\ 6/7 (50%)\\. br\\PRES ENTATIO N/CORD/ PLACENT A/FLUID /CERVIX :\\.br\\P resenta tion: Breech\\ .br\\Umb ilical Cord: 3 Vessel Cord.\\. br\\Plac enta: Fundal. There Is No Evidenc e Of Placent a Previa. \\.br\\Gr bryce 1\\.br\\A mniotic Fluid: Maximum Vertica l Pocket = 5.6 cm. Subject alvarez AF\\.br\\ Volume: Normal. \\.br\\FE LOU ANATOMI FRANCIA SURVEY: \\.br\\No rmal\\.b r\\----- -\\.br\\N uchal Fold Face\\.b r\\Cervi francia Spine Thoraci c Spine\\. br\\Lumb ar Spine Sacrum\\ .br\\Fou r Chamber View Aortic Arch\\.b r\\Cardi ac Shipman Cardiac Positio n\\.br\\F etal Heart Rate Diaphra gm\\.br\\ IVC SVC\\.br \\Ventra l Wall Stomach \\.br\\Ki dney - Left Kidney - Right\\. br\\Blad bar Genital ia\\.br\\ Upper Extremi ties\\.b r\\Subop timal\\. br\\---- ------\\ .br\\Nos e Lips\\.b r\\RVOT LVOT\\.b r\\Lower Extremi ties\\.b r\\Not Visuali zed\\.br \\------ ------- -\\.br\\P rofile Orbits\\ .br\\Thr ee Vessel View Ductal Arch\\.b r\\Abnor mal\\.br \\------ --\\.br\\ None identif ied\\.br \\OFFICE MACHINE SERVICER FINDING S:\\.br\\ Ovaries : Left: Normal - 24 x 24 x 12 mm.\\.br \\Right: Normal - 29 x 27 x 23 mm.\\.br \\EFW Summary Table\\. br\\Exam Date Fetus # EFW Percent ile\\.br \\------ --- ------- ---- ------- ---\\.br \\3/7/14 1 373 %\\.br\\A MNIOTIC FLUID VOLUME: \\.br\\NO RMAL Subject alvarez AF Volume: Normal. Maximum Vertica l\\.br\\P ocket: 5.6 cm\\.br\\ ------- ------- ------- ------- ------- ------- ------- ------- ------- ------- \\.br\\CO MMENTS: \\.br\\Vi sualiza tion of anatomy is limited by materna l body\\.b r\\habit us, subopti mal positio n.\\.br\\ The biometr ic measure ments are consist ent with menstru al\\.br\\ dates.\\ .br\\No gross anatomi c abnorma lities are identif ied.\\.b r\\Multi ple views are limited .\\.br\\R ecommen d a repeat ultraso und in 2-3 weeks to reasses s the \\. br\\lauren isai.\\.b r\\Thank you for this referra l. Please contact me if you have\\.b r\\quest ions.\\. br\\Elec tronica lly signed by SOL\\ .br\\SADAF MARSHALL M.D. on 4 at 5:10\\.b r\\pm\\.b r\\----- ------- ------- ------- ------- -\\.br\\A TOÑITO BRANDT M.D.\\.b r\\----- ------- ------- ------- ------- -\\.br\\S onograp her: Michelle Esparza RDMS Auto Diff Observa Value Referen Units Interpr Notes Date tion ce etation Range Neutrop 70.0 No % No No Aug 3 hils informa informa informa 2013 [#/volu tion in tion in tion in 6:13 AM me] in source source source Blood data data data by Automat ed count Lymphoc 20.5 No % No No Aug 11 ytes informa informa informa 2013 [#/volu tion in tion in tion in 6:13 AM me] in source source source Blood data data data by Automat ed count Monocyt 8.9 No % No No Aug 11 es informa informa informa 2013 [#/volu tion in tion in tion in 6:13 AM me] in source source source Blood data data data by Automat ed count Eosinop 0.3 No % No No Aug 11 hils/10 informa informa informa 2013 0 tion in tion in tion in 6:13 AM leukocy source source source maribeth in data data data Blood by Automat ed count Basophi 0.3 No % No No Aug 11 ls/100 informa informa informa 2013 leukocy tion in tion in tion in 6:13 AM maribeth in source source source Blood data data data by Automat ed count Neut# 8.3 1.8 - x10(3)/ High No Aug 11 7.7 mcL informa 2013 tion in 6:13 AM source data Lymph# 2.4 0.6 - x10(3)/ No No Aug 11 4.8 mcL informa informa 2013 tion in tion in 6:13 AM source source data data Lamar# 1.1 0.0 - x10(3)/ No No Aug 11 1.3 mcL informa informa 2013 tion in tion in 6:13 AM source source data data Eos# 0.0 0.0 - x10(3)/ No No Aug 11 0.5 mcL informa informa 2013 tion in tion in 6:13 AM source source data data Baso# 0.0 0.0 - x10(3)/ No No Aug 11 0.2 mcL informa informa 2013 tion in tion in 6:13 AM source source data data CBC Observa Value Referen Units Interpr Notes Date tion ce etation Range LEUKOCY 11.9 4.0 - x10(3)/ High No Aug 11 MARIBETH 11.0 mcL informa 2013 tion in 6:13 AM source data Erythro 3.66 3.80 - x10(6)/ Low No Aug 11 cytes 5.10 mcL informa 2013 [#/volu tion in 6:13 AM me] in source Blood data by Automat ed count Hemoglo 11.1 12.0 - gm/dL Low No Aug 11 bin 15.6 informa 2013 [Mass/v tion in 6:13 AM olume] source in data Blood Hematoc 33.2 35.7 - % Low No Aug 11 rit 45.9 informa 2013 [Volume tion in 6:13 AM source Fractio data n] of Blood by Automat ed count Erythro 90.7 82.5 - fL No No Aug 11 cyte 99.8 informa informa 2013 mean tion in tion in 6:13 AM corpusc source source ular data data volume [Entiti c volume] by Automat ed count Erythro 30.2 27.0 - pg No Aug 11 cyte 34.3 informa informa 2013 mean tion in tion in 6:13 AM corpusc source source ular data data hemoglo bin [Entiti c mass] by Automat ed count Erythro 33.4 32.1 - gm/dL No No Aug 11 cyte 35.3 informa informa 2013 mean tion in tion in 6:13 AM corpusc source source ular data data hemoglo bin concent ration [Mass/v olume] by Automat ed count Erythro 14.3 11.5 - % No Aug 11 cyte 15.0 informa informa 2013 distrib tion in tion in 6:13 AM ution source source width data data [Ratio] by Automat ed count Platele 213 144 - x10(3)/ No No Aug 11 ts 423 mcL informa informa 2013 [#/volu tion in tion in 6:13 AM me] in source source Blood data data by Automat ed count MPV 9.1 6.8 - fL No No Aug 11 10.8 informa informa 2013 tion in tion in 6:13 AM source source data data UA Observa Value Referen Units Interpr Notes Date tion ce etation Range UA Yellow No No No No Aug 10 Color informa informa informa informa 2013 tion in tion in tion in tion in 7:32 PM source source source source data data data data UA Cloudy Clear No Abnorma No Aug 10 Appear informa l informa 2013 tion in tion in 7:32 PM source source data data UA Negativ Negativ No No No Aug 10 Glucose e e informa informa informa 2013 tion in tion in ti in 7:32 PM source source source data data data UA Negativ Negativ No No No Aug 10 Ketones e e informa informa informa 2013 tion in tion in ti in 7:32 PM source source source data data data UA Trace Negativ No Abnorma No Aug 10 Blood e informa l informa 2013 tion in in 7:32 PM source source data data UA pH 6.0 5.0 - No No No Aug 10 8.0 informa informa informa 2013 tion in tion in ti in 7:32 PM source source source data data data Protein 100 Negativ No Abnorma No Aug 2 mg/dl e informa l informa 2013 [Mass/v tion in in 7:32 PM olume] source source in data data Urine by Test strip UA 0.2 <=1 No No No Aug 10 Urobili mg/dl mg/dl informa informa informa 2013 nogen tion in tion in in 7:32 PM source source source data data data UA Positiv Negativ No Abnorma No Aug 10 Nitrite e e informa l informa 2013 tion in in 7:32 PM source source data data UA Leuk Small Negativ No Abnorma No Aug 10 Est e informa l informa 2013 tion in in 7:32 PM source source data data UA Spec >=1.030 No No No No Aug 10 Grav informa informa informa informa 2013 tion in tion in tion in ti in 7:32 PM source source source source data data data data Leukocy TNTC No /HPF Abnorma No Aug 10 maribeth informa l informa 2013 [#/area tion in ti in 7:32 PM ] in source source Urine data data sedimen t by Microsc opy high power field UA RBC 0-3 No /HPF No No Aug 10 informa informa informa 2013 tion in tion in tion in 7:32 PM source source source data data data UA 0-3 No /HPF No No Aug 10 Squam informa informa informa 2013 Epi tion in tion in tion in 7:32 PM source source source data data data UA Present No No No No Aug 10 Mucous informa informa informa informa 2013 tion in tion in tion in tion in 7:32 PM source source source source data data data data UA Moderat No /HPF Abnorma No Aug 10 Bacteri e informa l informa 2014 a tion in tion in 7:32 PM source source data data POC UA Observa Value Referen Units Interpr Notes Date tion ce etation Range UA Yellow No No No No Aug 10 Color informa informa informa informa 2013 POC tion in tion in tion in tion in 6:00 PM source source source source data data data data UA Cloudy Clear No Abnorma No Aug 10 Appear informa l informa 2013 POC tion in tion in 6:00 PM source source data data UA Gluc Negativ Negativ No No No Aug 10 POC e e informa informa informa 2013 tion in tion in tion in 6:00 PM source source source data data data UA Negativ Negativ No No No Aug 10 Ketones e e informa informa informa 2013 POC tion in tion in tion in 6:00 PM source source source data data data UA Small Negativ No Abnorma No Aug 10 Blood e informa l informa 2013 POC tion in tion in 6:00 PM source source data data UA pH 6.0 5.0 - No No No Aug 10 POC 8.0 informa informa informa 2013 tion in tion in tion in 6:00 PM source source source data data data UA >=300 Negativ No Abnorma No Aug 10 Protein mg/dl e informa l informa 2013 POC tion in tion in 6:00 PM source source data data UA 0.2 <=1 No No No Aug 10 Urobili mg/dl mg/dl informa informa informa 2013 nogen tion in tion in tion in 6:00 PM POC source source source data data data UA Positiv Negativ No Abnorma No Aug 2 Nitrite e e informa l informa 2013 POC tion in tion in 6:00 PM source source data data UA Leuk Small Negativ No Abnorma No Aug 10 Est e informa l informa 2013 POC tion in tion in 6:00 PM source source data data UA SG 1.025 1.001 - No No Aug 10 POC 1.035 informa informa informa 2013 tion in tion in tion in 6:00 PM source source source data data data CBC Observa Value Referen Units Interpr Notes Date tion ce etation Range LEUKOCY 16.1 4.0 - x10(3)/ High No Aug 10 MARIBETH 11.0 mcL informa 2013 tion in 6:20 PM source data Erythro 4.06 3.80 - x10(6)/ No No Aug 10 cytes 5.10 mcL informa informa 2013 [#/volu tion in tion in 6:20 PM me] in source source Blood data data by Automat ed count Hemoglo 11.9 12.0 - gm/dL Low No Aug 10 bin 15.6 informa 2013 [Mass/v tion in 6:20 PM olume] source in data Blood Hematoc 36.7 35.7 - % No Aug 10 rit 45.9 informa informa 2013 [Volume tion in tion in 6:20 PM source source Fractio data data n] of Blood by Automat ed count Erythro 90.3 82.5 - fL No Aug 10 cyte 99.8 informa informa 2013 mean tion in tion in 6:20 PM corpusc source source ular data data volume [Entiti c volume] by Automat ed count Erythro 29.3 27.0 - pg No Aug 10 cyte 34.3 informa informa 2013 mean tion in tion in 6:20 PM corpusc source source ular data data hemoglo bin [Entiti c mass] by Automat ed count Erythro 32.5 32.1 - gm/dL No Aug 10 cyte 35.3 informa informa 2013 mean tion in tion in 6:20 PM corpusc source source ular data data hemoglo bin concent ration [Mass/v olume] by Automat ed count Erythro 14.6 11.5 - % No Aug 10 cyte 15.0 informa informa 2013 distrib tion in tion in 6:20 PM ution source source width data data [Ratio] by Automat ed count Platele 259 144 - x10(3)/ No No Aug 10 ts 423 mcL informa informa 2013 [#/volu tion in tion in 6:20 PM me] in source source Blood data data by Automat ed count MPV 9.1 6.8 - fL No No Aug 10 10.8 informa informa 2013 tion in tion in 6:20 PM source source data data Auto Diff Observa Value Referen Units Interpr Notes Date tion ce etation Range Neutrop 78.2 No % No No Aug 10 hils informa informa informa 2013 [#/volu tion in tion in tion in 6:20 PM me] in source source source Blood data data data by Automat ed count Lymphoc 14.4 No % No No Aug 10 ytes informa informa informa 2013 [#/volu tion in tion in tion in 6:20 PM me] in source source source Blood data data data by Automat ed count Monocyt 6.8 No % No No Aug 10 es informa informa informa 2013 [#/volu tion in tion in tion in 6:20 PM me] in source source source Blood data data data by Automat ed count Eosinop 0.1 No % No No Aug 10 hils/10 informa informa informa 2013 0 tion in tion in tion in 6:20 PM leukocy source source source maribeth in data data data Blood by Automat ed count Basophi 0.5 No % No No Aug 10 ls/100 informa informa informa 2013 leukocy tion in tion in tion in 6:20 PM maribeth in source source source Blood data data data by Automat ed count Neut# 12.6 1.8 - x10(3)/ High No Aug 10 7.7 mcL informa 2013 tion in 6:20 PM source data Lymph# 2.3 0.6 - x10(3)/ No No Aug 10 4.8 mcL informa informa 2013 tion in tion in 6:20 PM source source data data Lamar# 1.1 0.0 - x10(3)/ No No Aug 10 1.3 mcL informa informa 2013 tion in tion in 6:20 PM source source data data Eos# 0.0 0.0 - x10(3)/ No No Aug 10 0.5 mcL informa informa 2013 tion in tion in 6:20 PM source source data data Baso# 0.1 0.0 - x10(3)/ No No Aug 2 0.2 mcL informa informa 2014 tion in tion in 6:20 PM source source data data CF 32 Mut-ARUP Observa Value Referen Units Interpr Notes Date tion ce etation Range Cys Fib Unknown No No No No Jul 18 informa informa informa informa 2013 Symptom tion in tion in tion in tion in 8:15 PM -ARUP source source source source data data data data Family Unknown No No No No Jul 18 History informa informa informa informa 2013 -ARUP tion in tion in tion in tion in 8:15 PM source source source source data data data data Ethnici Unknown No No No No Jul 18 ty-ARUP informa informa informa informa 2013 tion in tion in tion in tion in 8:15 PM source source source source data data data data CF GONCALVES Whole No No No No Jul 18 Specime Blood informa informa informa informa 2013 n tion in tion in tion in tion in 8:15 PM source source source source data data data data CFTR Negativ No No No No Jul 18 gene e informa informa informa informa 2013 allele tion in tion in tion in tion in 8:15 PM 1 source source source source [Presen data data data data ce] in Blood or Tissue by Molecul ar genetic s method CFTR Negativ No No No No Jul 18 gene e informa informa informa informa 2013 allele tion in tion in tion in tion in 8:15 PM 2 source source source source [Presen data data data data ce] in Blood or Tissue by Molecul ar genetic s method CFTR Not No No No No Jul 18 gene Applica informa informa informa informa 2013 p.IVS8 ble tion in tion in tion in tion in 8:15 PM PolyT source source source source [Presen data data data data ce] in Blood or Tissue by Molecul ar genetic s method CFTR Not No No No No Jul 18 gene Applica informa informa informa informa 2013 p.R117H ble tion in tion in tion in tion in 8:15 PM +5T source source source source variant data data data data [Presen ce] in Blood or Tissue by Molecul ar genetic s method CF Mut See No No No \\.br\\Ne Jul 18 Intrp-A Note informa informa informa gative: 2012 [facility] tion in tion in tion in None 8:15 PM source source source of the data data data 32 cystic fibrosi s (CF) mutatio ns\\.br\\ tested were present ; thus, this individ ual's risk of being\\. br\\affe cted with or a carrier of CF is reduced . No informa tion\\.b r\\was provide d indicat ing whether the testing was for\\.br \\affect ed or carrier status; therefo re, a specifi c result\\ .br\\int erpreta tion is not possibl e. The followi ng table may be\\.br\\ used for risk assessm ent unless CF symptom s or a positiv e\\.br\\f amily history of CF are present . Bayesia n analysi s is\\.br\\ necessa ry for accurat e risk assessm ent for those with a\\.br\\p ositive family history .\\.br\\\\ .br\\ Mutatio n\\.br\\ Detecti on Carrier Risk Carrier Risk\\.b r\\Ethni city Rate Before Test After Test\\.b r\\----- ------- ------- ------- ------- ------- ------- ------- ---\\.br \\[place] 94% 1 in 25 1 in 400\\.br \\[place] an Cauc[place] an 89% 1 in 25 1 in 220\\.br \\Hispan ic [place] 73% 1 in 46 1 in 170\\.br \\Stacy n [place] 65% 1 in 65 1 in 180\\.br \\ [place] 55% 1 in 90 1 in 200\\.br \\\\.br\\C ystic fibrosi s populat ion carrier screeni n revisio n\\.br\\o f [place] [employer] mutatio n panel.\\ .br\\Gen etics in Medicin e 2003; 6 (5): 387-91; \\.br\\ww w.acmg. net/pag es/acmg \\.br\\\\. br\\This result has been reviewe d and approve d by Pierre luke\\.br\\R ronald, Ph.D.\\. br\\BACK GROUND INFORMA TION: Cystic Fibrosi s (CFTR) 32 Mutatio ns\\.br\\ \\.br\\CH ARACTER ISTICS: Chronic sino-pu lmonary disease ,\\.br\\g astroin testina l malabso rption/ pancrea tic insuffi ciency, \\.br\\an d obstruc tive azoospe rmia. Finding s are often limited to\\.br\\ a single organ system such as isolate d pancrea titis,\\ .br\\cornelia ateral absence of the vas deferen s, nasal polypos is, or\\.br\\ bronche ictasis in non-cla ssic cystic fibrosi s (CF).\\. br\\INCI DENCE: 1 in 3,000 Caucasi ans or [place], 1 in\\.br\\ 8,000 Hispani cs, 1 in 15,000 Sammi ns, 1 in 32,000\\ .br\\Asi ans.\\.b r\\INHER ITANCE: Autosom al recessi ve.\\.br \\PENETR ANCE: High for severe mutatio ns, variabl e for mild\\.b r\\mutat ions.\\. br\\CAUS E: Two CFTR mutatio ns on opposit e chromos omes.\\. br\\MUTA TIONS TESTED: G85E (c.254G >A), R117H (c.350G >A), R334W\\. br\\(c.1 000C>T) , R347P (c.1040 G>C), R347H (c.1040 G>A), 394delT T\\.br\\( c.262_2 63delTT ), A455E (c.1364 C>A), J056wid \\.br\\(c .1519_1 521de;A TC), I051ptx (c.1521 _1523de ;CTT), V520F\\. br\\(c.1 558G>T) , G542X (c.1624 G>T), S549N (c.1646 G>A), S549R\\. br\\(c.1 645A>C or c.1647T >G), G551D (c.1652 G>A), R553X\\. br\\(c.1 657C>T) , R560T (c.1679 G>C), 621+1G> T (c.489+ 1G>T),\\ .br\\711 +1G>T (c.579+ 1G>T), 1078del T (c.948d elT), H2888C\\ .br\\(c. 3484C>T ), V9127C (c.3846 G>A), P6294F (c.3909 C>G),\\. br\\1717 -1G>A (c.1585 -1G>A), 1898+1G >A (c.1766 +1G>A), 2183AA> G\\.br\\( c.2051_ 2052del AAinsG) , 2184del A (c.2052 Freddy), 2789+5G >A\\.br\\ (c.2657 +5G>A), 3120+1G >A (c.2988 +1G>A), 3659del C\\.br\\( c.3528d elC), 3849+10 kbC>T (c.3717 +15428B >T), 3876del A\\.br\\( c.3744d Kalpana), 3905ins T (c.3773 _3774in sT). For specime ns\\.br\\ positiv e for R117H, the IVS-8/p cayla T (c.1210 -12T[5_ 9] is\\.br\\ analyze d. The mutatio ns tested are listed above accordi ng\\.br\\ to the legacy nomencl ature; the standar d nomencl ature is\\.br\\ listed in [facility] eses. Panel mutatio ns are reporte d\\.br\\a ccordin g to the legacy nomencl ature.\\ .br\\CLI NICAL SENSITI VITY: [place] 94 percent ,\\.br\\C a[place] n 89 percent , Hispani c 73 percent , Sammi n\\.br\\6 5 percent , [place]i [place] 55 percent .\\.br\\M ETHODOL OGY: PCR, oligonu cleotid e ligatio n assay (BETTINA),\\ .br\\flu orescen t hybridi zation probes and capilla ry\\.br\\ electro phoresi s.\\.br\\ ANALYTI FRANCIA SENSITI VITY AND SPECIFI CITY: 99 percent .\\.br\\L IMITATI ONS: Diagnos tic errors can occur due to rare\\.b r\\seque nce variati ons. Only the 32 CFTR mutatio ns listed\\ .br\\abo ve will be interro gated.\\ .br\\\\.b r\\Test develop ed and charact eristic s determi diana by [facility]\\.b r\\Labor atories . See Complia nce Stateme nt C: [employer]/CS Hep Prf-Ac Observa Value Referen Units Interpr Notes Date tion ce etation Range Hepatit Negativ Negativ No No No Jul 14 is B e e informa informa informa 2012 virus tion in tion in tion in 11:08 surface source source source AM Ag data data data [Presen ce] in Serum by Immunoa ssay Alpha-2 Negativ Negativ No No No Jul 14 -Macrog e e informa informa informa 2012 lobulin tion in tion in tion in 11:08 source source source AM [Mass/v data data data olume] in Unspeci fied specime n Hepatit Negativ Negativ No No No Jul 14 is A e e informa informa informa 2012 virus tion in tion in tion in 11:06 Ab source source source AM [Units/ data data data volume] in Serum by Radioim munoass ay (FRANDY) Hepatit Positiv Negativ No Abnorma High Jul 14 is C e e informa l / 2012 virus tion in cutoff 1:39 PM Ab source ratio [Presen data (>= 5, ce] in Archite Serum ct Anti-HC V). [facility] are Laborat ory recomme nds collect ing a new specime n and testing for Hepatit is C RNA Quantit ative PCR to confirm positiv ity and provide a baselin e viral load for monitor ing treatme nt efficac y. Rubella G Observa Value Referen Units Interpr Notes Date tion ce etation Range Rubella 1.069 No Index_V No < 0.90 Jul 14 virus informa alue informa - 2012 [facility] [Presen source source e\\.br\\N ce] in data data o Serum signifi cant level of detecta ble rubella IgG Antibod y\\.br\\( Presume d Non-Imm une)\\.b r\\\\.br\\ 0.90 to 0.99 - Equivoc al\\.br\\ Repeat testing in 10-14 days is recomme nded\\.b r\\\\.br\\ > or = 1.00 - Positiv e\\.br\\P revious exposur e or vaccina tion (Immune )\\.br\\\\ .br\\Not e: The magnitu de of the measure d result is not indicat alvarez of the amount of antibod y present . Trep Screen Observa Value Referen Units Interpr Notes Date tion ce etation Range Trep Ab 0.16 <=1.09 Index_V No <0.90 - Jul 14 alue informa 2012 [facility] PM source e\\.br\\\\ data .br\\0.9 0 to 1.00 - Equivoc al\\.br\\ Patient s with equivoc al results should be reteste d in 7-14 days.\\. br\\\\.br \\>=1.10 - Positiv e\\.br\\\\ .br\\NOT E: All equivoc al and positiv e results will be reflexe d to Quantit ative Non-Baldev ponemal (RPR)te st. ABSC IgG Observa Value Referen Units Interpr Notes Date tion ce etation Range ABSC Negativ No No No No Jul 13 IgG Int e informa informa informa informa 2012 tion in tion in tion in tion in 7:32 PM source source source source data data data data ABORh Observa Value Referen Units Interpr Notes Date ti ce etation Range ABORh A POS No No No No Jul 13 Int informa informa informa informa 2012 tion in tion in tion in tion in 7:32 PM source source source source data data data data Auto Diff Observa Value Referen Units Interpr Notes Date tion ce etation Range Neutrop 62.0 No % No No Dec 5 hils informa informa informa 2012 [#/volu tion in tion in tion in 4:01 PM me] in source source source Blood data data data by Automat ed count Lymphoc 28.6 No % No No Dec 5 ytes informa informa informa 2012 [#/volu tion in tion in tion in 4:01 PM me] in source source source Blood data data data by Automat ed count Monocyt 8.1 No % No No Dec 5 es informa informa informa 2012 [#/volu tion in tion in tion in 4:01 PM me] in source source source Blood data data data by Automat ed count Eos 0.9 No % No No Dec 5 Percent informa informa informa 2013 tion in tion in tion in 4:01 PM source source source data data data Baso 0.4 No % No No Dec 5 Percent informa informa informa 2013 tion in tion in tion in 4:01 PM source source source data data data Neutrop 3.8 1.8 - x10(3)/ No No Dec 5 hils 7.7 mcL informa informa 2012 [#/volu tion in tion in 4:01 PM me] in source source Blood data data Lymphoc 1.7 0.6 - x10(3)/ No No Dec 5 ytes 4.8 mcL informa informa 2012 [#/volu tion in tion in 4:01 PM me] in source source Blood data data Monocyt 0.5 0.0 - x10(3)/ No No Dec 5 es 1.3 mcL informa informa 2012 [#/volu tion in tion in 4:01 PM me] in source source Blood data data Eosinop 0.1 0.0 - x10(3)/ No No Dec 5 hils 0.5 mcL informa informa 2012 [#/volu tion in tion in 4:01 PM me] in source source Blood data data Basophi 0.0 0.0 - x10(3)/ No No Dec 5 ls 0.2 mcL informa informa 2012 [#/volu tion in tion in 4:01 PM me] in source source Blood data data CBC Observa Value Referen Units Interpr Notes Date tion ce etation Range LEUKOCY 6.1 4.0 - x10(3)/ No No Jul 5 MARIBETH 11.0 mcL informa informa 2012 tion in tion in 4:01 PM source source data data Erythro 3.81 3.80 - x10(6)/ No No Jul 13 cytes 5.10 mcL informa informa 2012 [#/volu tion in tion in 4:01 PM me] in source source Blood data data by Automat ed count Hemoglo 11.4 12.0 - gm/dL Low No Jul 13 bin 15.6 informa 2012 [Mass/v tion in 4:01 PM olume] source in data Blood Hematoc 34.2 35.7 - % Low No Jul 13 rit 45.9 informa 2012 [Volume tion in 4:01 PM source Fractio data n] of Blood by Automat ed count Erythro 89.7 82.5 - fL No No Jul 13 cyte 99.8 informa informa 2013 mean tion in tion in 4:01 PM corpusc source source ular data data volume [Entiti c volume] by Automat ed count Erythro 30.1 27.0 - pg No No Jul 13 cyte 34.3 informa informa 2013 mean tion in tion in 4:01 PM corpusc source source ular data data hemoglo bin [Entiti c mass] by Automat ed count Erythro 33.5 32.1 - gm/dL No No Jul 13 cyte 35.3 informa informa 2013 mean tion in tion in 4:01 PM corpusc source source ular data data hemoglo bin concent ration [Mass/v olume] by Automat ed count Erythro 14.7 11.5 - % No No Jul 13 cyte 15.0 informa informa 2012 distrib tion in tion in 4:01 PM ution source source width data data [Ratio] by Automat ed count Platele 226 144 - x10(3)/ No No Jul 5 ts 423 mcL informa informa 2012 [#/volu tion in tion in 4:01 PM me] in source source Blood data data by Automat ed count Platele 9.9 6.8 - fL No No Jul 13 t mean 10.8 informa informa 2012 volume tion in tion in 4:01 PM [Entiti source source c data data volume] in Blood US OB TRANSVAGINAL Observa Value Referen Units Interpr Notes Date tion ce etation Range Transva No No No No Jul 07 ginal informa informa informa informa 2012 first tion in tion in tion in tion in 4:16 AM trimest source source source source er OB data data data data pelvic ultraso und dated 013\\.br \\\\.br\\C OMPARIS ON: No recent priors\\ .br\\\\.b r\\HISTO RY: Right pelvic pain and spottin g, quantit ative beta-hC G level of\\.br\\ 15,913\\ .br\\\\.b r\\FINDI NGS:\\.b r\\\\.br\\ There is evidenc e of an intraut erine pregnan cy. Gestati onal sac has a mean\\.b r\\sac diamete r of 13.5\\.b r\\mm, which gives an estimat ed gestati onal age of 6 weeks 0 days. There is\\.br\\ a pole within\\ .br\\it, which has a crown-r ump length of 4.0 mm. This gives an estimat ed\\.br\\ gestati onal age of 6 weeks\\. br\\1 day. cardiac activit y is seen. heart rate is calcula kaila at\\.br\\ 116 beats per minute. \\.br\\Yo lk sac measure s 4 mm in diamete r.\\.br\\ \\.br\\No free pelvic fluid is seen. Right ovary measure s 3.2 x 2.3 x 3.0 cm. It\\.br\\ contain s a round\\. br\\hypo echoic lesion measuri ng 1.3 x 1.3 x 0.8 cm. Left ovary measure s 2.9 x\\.br\\2 .4 x 1.9 cm and is\\.br\\ within normal limits. No other dominan t adnexal cystic or solid mass\\.b r\\lesio n identif ied.\\.b r\\\\.br\\ IMPRESS ION:\\.b r\\\\.br\\ 1. Evidenc e of early intraut erine pregnan cy, estimat ed gestati onal age of\\.br\\ 6 weeks 1 day based\\. br\\on crown-r ump length. cardiac activit y is visible .\\.br\\2 . No free pelvic fluid.\\ .br\\3. 1.3 cm hypoech oic lesion in the right ovary is nonspec ific but may\\.br \\repres ent a hemorrh agic\\.b r\\cyst. Attenti on on future followu p perinat al ultraso unds is recomme nded. Chl/GC Genital Results Observa Value Referen Units Interpr Notes Date tion ce etation Range C. Genital No No No Test Jul 11 trachom informa informa informa methodo 2012 atis/N. tion in tion in tion in logy is 6:14 AM source source source gonorrh data data data amplifi oeae ed DNA Specime probe n using [employer] A negativ e result does not rule out the presenc e of DNA in concent rations below\\. br\\the level of detecti on of the assay.\\ .br\\\\.b r\\The perform ance charact eristic s of this test were validat ed by [facility] are Laborat ory. This laborat ory is authori victor manuel under the Clinica l\\.br\\L aborato ry Improve ment Amendme nts (CLIA) as qualifi ed to perform high-co mplexit y testing . Complia nce stateme nt is availab le in the Laborat ory.\\.b r\\\\.br\\ Extract ion of genetic materia l from urine and Thin Prep samples was perform ed using a method that was develop ed and validat ed in the perform ing laborat ory. Detaile d methodo logy is availab le upon request .\\.br\\\\ .br\\In rare instanc es, non-pat hogenic strains of Neisser ia may cross react and give a false positiv e result for N. gonorrh ea. If concern ed that this cross\\. br\\reac tivity has occurre d, please recolle ct and submit for genital culture prior to treatme nt.\\.br \\\\.br\\T he perform ance of this test has not been verifie d in minor aged patient s. This test is indicat ed for medical purpose s only. Chlamyd Negativ No No No No Jul 11 ia e informa informa informa informa 2013 trachom tion in tion in tion in tion in 6:14 AM atis source source source source [Presen data data data data ce] in Unspeci fied specime n by Organis m specifi c culture Neisser Negativ No No No No Jul 11 ia e informa informa informa informa 2013 gonorrh tion in tion in tion in tion in 6:14 AM oeae source source source source [Presen data data data data ce] in Unspeci fied specime n by Praveen m specifi c culture BhCG Quant Observa Value Referen Units Interpr Notes Date tion ce etation Range Choriog 27411 0 - 5 mIU/mL High Females Jul 07 onadotr : 2013 opin.be Pre-men 3:12 AM ta opausal subunit , Non-pre [Multip gnant le of <5 the mlU/mL\\ median] .br\\ adjuste d in Post-me Serum nopausa or l, <10 Plasma mIU/mL\\ .br\\\\.b r\\Males : <5 mIU/mL\\ .br\\\\.b r\\Value s from differe nt assay methods may vary. This assay is not approve d for, and should not be used to diagnos e any conditi on unrelat ed to pregnan cy. Auto Diff Observa Value Referen Units Interpr Notes Date tion ce etation Range Neutrop 62.8 No % No No Jul 07 hils informa informa informa 2012 [#/volu tion in tion in tion in 2:48 AM me] in source source source Blood data data data by Automat ed count Lymphoc 29.6 No % No No Jul 07 ytes informa informa informa 2012 [#/volu tion in tion in tion in 2:48 AM me] in source source source Blood data data data by Automat ed count Monocyt 5.0 No % No No Jul 07 es informa informa informa 2012 [#/volu tion in tion in tion in 2:48 AM me] in source source source Blood data data data by Automat ed count Eos 0.5 No % No No Jul 07 Percent informa informa informa 2012 tion in tion in tion in 2:48 AM source source source data data data Baso 2.1 No % No Jul 07 Percent informa informa informa 2012 tion in tion in tion in 2:48 AM source source source data data data Neutrop 7.1 1.8 - x10(3)/ No Jul 07 hils 7.7 mcL informa informa 2012 [#/volu tion in tion in 2:48 AM me] in source source Blood data data Lymphoc 3.3 0.6 - x10(3)/ No Jul 07 ytes 4.8 mcL informa informa 2012 [#/volu tion in tion in 2:48 AM me] in source source Blood data data Monocyt 0.6 0.0 - x10(3)/ No Jul 07 es 1.3 mcL informa informa 2012 [#/volu tion in tion in 2:48 AM me] in source source Blood data data Eosinop 0.1 0.0 - x10(3)/ No No Jul 07 hils 0.5 mcL informa informa 2012 [#/volu tion in tion in 2:48 AM me] in source source Blood data data Basophi 0.2 0.0 - x10(3)/ No Jul 07 ls 0.2 mcL informa informa 2012 [#/volu tion in tion in 2:48 AM me] in source source Blood data data CBC Observa Value Referen Units Interpr Notes Date tion ce etation Range LEUKOCY 11.3 4.0 - x10(3)/ High No Jul 07 MARIBETH 11.0 mcL informa 2012 tion in 2:48 AM source data Erythro 3.92 3.80 - x10(6)/ No Jul 07 cytes 5.10 mcL informa informa 2012 [#/volu tion in tion in 2:48 AM me] in source source Blood data data by Automat ed count Hemoglo 11.7 12.0 - gm/dL Low No Jul 07 bin 15.6 informa 2012 [Mass/v tion in 2:48 AM olume] source in data Blood Hematoc 35.0 35.7 - % Low No Jul 07 rit 45.9 informa 2012 [Volume tion in 2:48 AM source Fractio data n] of Blood by Automat ed count Erythro 89.3 82.5 - fL No Jul 07 cyte 99.8 informa informa 2012 mean tion in tion in 2:48 AM corpusc source source ular data data volume [Entiti c volume] by Automat ed count Erythro 29.9 27.0 - pg No No Jul 07 cyte 34.3 informa informa 2012 mean tion in tion in 2:48 AM corpusc source source ular data data hemoglo bin [Entiti c mass] by Automat ed count Erythro 33.5 32.1 - gm/dL No No Jul 07 cyte 35.3 informa informa 2012 mean tion in tion in 2:48 AM corpusc source source ular data data hemoglo bin concent ration [Mass/v olume] by Automat ed count Erythro 14.5 11.5 - % No No Jul 07 cyte 15.0 informa informa 2012 distrib tion in tion in 2:48 AM ution source source width data data [Ratio] by Automat ed count Platele 243 144 - x10(3)/ No No Jul 07 ts 423 mcL informa informa 2012 [#/volu tion in tion in 2:48 AM me] in source source Blood data data by Automat ed count Platele 9.3 6.8 - fL No Jul 07 t mean 10.8 informa informa 2012 volume tion in tion in 2:48 AM [Entiti source source c data data volume] in Blood UA Observa Value Referen Units Interpr Notes Date tion ce etation Range Color Yellow No No No No Jul 05 of informa informa informa informa 2012 Urine tion in tion in tion in tion in 12:32 source source source source AM data data data data Appeara Clear Clear No No Jul 05 nce of informa informa informa 2013 Urine tion in tion in tion in 12:32 source source source AM data data data UA Negativ Negativ No No Jul 05 Glucose e e informa informa informa 2013 tion in tion in tion in 12:32 source source source AM data data data Ketones Negativ Negativ No No No Jul 05 e e informa informa informa 2012 [Presen tion in tion in tion in 12:32 ce] in source source source AM Urine data data data UA Negativ Negativ No No No Jul 05 Blood e e informa informa informa 2012 tion in tion in tion in 12:32 source source source AM data data data pH of 6.0 5.0 - No No No Jul 05 Urine 8.0 informa informa informa 2012 tion in tion in tion in 12:32 source source source AM data data data Protein Negativ Negativ No No No Jul 05 e e informa informa informa 2012 [Mass/v tion in tion in tion in 12:32 olume] source source source AM in data data data Urine by Test strip Urobili 0.2 <=1 No No No Jul 05 nogen mg/dl mg/dl informa informa informa 2012 [Presen tion in tion in tion in 12:32 ce] in source source source AM Urine data data data Nitrite Negativ Negativ No No No Jul 05 e e informa informa informa 2012 [Presen tion in tion in tion in 12:32 ce] in source source source AM Urine data data data Leukocy Negativ Negativ No No No Jul 05 te e e informa informa informa 2012 esteras tion in tion in tion in 12:32 e source source source AM [Presen data data data ce] in Urine by Test strip Specifi >=1.030 1.001 - No No No Jul 05 c 1.035 informa informa informa 2012 gravity tion in tion in tion in 12:32 of source source source AM Urine data data data hCG Urine POC Observa Value Referen Units Interpr Notes Date tion ce etation Range U hCG Positiv No No No No Jul 05 POC e informa informa informa informa 2012 tion in tion in tion in tion in 12:13 source source source source AM data data data data POC UA Observa Value Referen Units Interpr Notes Date ti ce etation Range UA Yellow No No No No Sep 23 Color informa informa informa informa 2013 POC tion in tion in tion in tion in 9:33 PM source source source source data data data data UA Clear Clear No No No Sep 23 Appear informa informa informa 2013 POC tion in tion in tion in 9:33 PM source source source data data data UA Gluc Negativ Negativ No No No Sep 23 POC e e informa informa informa 2013 tion in tion in tion in 9:33 PM source source source data data data UA Negativ Negativ No No No Sep 23 Ketones e e informa informa informa 2013 POC tion in tion in tion in 9:33 PM source source source data data data UA Large Negativ No Abnorma No Sep 23 Blood e informa l informa 2013 POC tion in tion in 9:33 PM source source data data UA pH 5.5 5.0 - No No No Sep POC 8.0 informa informa informa 2013 tion in tion in tion in 9:33 PM source source source data data data UA 100 Negativ No Abnorma No Sep 23 Protein mg/dl e informa l informa 2013 POC tion in tion in 9:33 PM source source data data UA 1 mg/dl <=1 No No No Sep 23 Urobili mg/dl informa informa informa 2013 nogen tion in tion in tion in 9:33 PM POC source source source data data data UA Positiv Negativ No Abnorma No Sep 23 Nitrite e e informa l informa 2013 POC tion in tion in 9:33 PM source source data data UA Leuk Small Negativ No Abnorma No Sep 23 Est e informa l informa 2012 POC tion in tion in 9:33 PM source source data data UA SG >=1.030 1.001 - No No No Sep 23 POC 1.035 informa informa informa 2013 tion in tion in tion in 9:33 PM source source source data data data hCG Urine POC Observa Value Referen Units Interpr Notes Date tion ce etation Range U hCG Negativ No No No No Sep 23 POC e informa informa informa informa 2013 tion in tion in tion in tion in 9:32 PM source source source source data data data data UA Observa Value Referen Units Interpr Notes Date tion ce etation Range UA Yellow No No No No Sep 23 Color informa informa informa informa 2013 tion in tion in tion in tion in 9:59 PM source source source source data data data data UA Slightl Clear No Abnorma No Sep 23 Appear y informa l informa 2012 Cloudy tion in tion in 9:59 PM source source data data UA Negativ Negativ No No No Apr 23 Glucose e e informa informa informa 2012 tion in tion in tion in 9:59 PM source source source data data data UA Negativ Negativ No No No Apr 23 Ketones e e informa informa informa 2013 tion in tion in tion in 9:59 PM source source source data data data UA Large Negativ No Abnorma No Apr 23 Blood e informa l informa 2012 tion in tion in 9:59 PM source source data data UA pH 6.0 5.0 - No No No Sep 23 8.0 informa informa informa 2012 tion in tion in tion in 9:59 PM source source source data data data Protein 100 Negativ No Abnorma No Sep 23 mg/dl e informa l informa 2012 [Mass/v tion in tion in 9:59 PM olume] source source in data data Urine by Test strip UA 0.2 <=1 No No No Sep 23 Urobili mg/dl mg/dl informa informa informa 2012 nogen tion in tion in tion in 9:59 PM source source source data data data UA Positiv Negativ No Abnorma No May 01 Nitrite e e informa l informa 2012 tion in tion in 9:59 PM source source data data UA Leuk Small Negativ No Abnorma No Sep 23 Est e informa l informa 2012 tion in tion in 9:59 PM source source data data UA Spec >=1.030 No No No No Sep 23 Grav informa informa informa informa 2012 tion in tion in tion in tion in 9:59 PM source source source source data data data data Leukocy 50-100 No /HPF Abnorma No Sep 23 maribeth informa l informa 2013 [#/area tion in tion in 9:59 PM ] in source source Urine data data sedimen t by Microsc opy high power field UA 0-3 No /HPF No No May 01 Squam informa informa informa 2013 Epi tion in tion in tion in 9:59 PM source source source data data data UA Present No No No No Apr 23 Mucous informa informa informa informa 2013 tion in tion in tion in tion in 9:59 PM source source source source data data data data UA Moderat No /HPF Abnorma No May 01 Bacteri e informa l informa 2013 a tion in tion in 9:59 PM source source data data CT ABDOMEN PELVIS WO CONTRAST Observa Value Referen Units Interpr Notes Date tion ce etation Range TEXT CT No No No No Sep 16 DIAGNOS abdomen informa informa informa informa 2013 IS pelvis tion in tion in tion in tion in 3:14 PM BATTERY source source source source without data data data data contras t, 3COMPAR YULIANA: 11/30/19 11HISTO RY: Right flank painFIN DINGS: lung bases clear. No renal stones, no hydrone phrosis . Remaind ersolid abdomin alorgan s are within normal limits. No bowel obstruc tion. Normal appendi x. Nourete ral stones, nobladd er stones. IMPRESS ION: No acute abnorma lity.
--- OUTSIDE RECORDS SUMMARY | 2017-02-08 16:54 | External Medical Summary Rpt ---
[...] in 1:03 PM source source data data [place]# 0.7 0.0 - x10(3)/ No January 02 [...] - x10(6)/ No January 02 cytes 5.10 [facility] informa informa 2014 [#/volu tion in tion [...] Notes Date tion ce etation Range UA [place] No No Abnorma No Oct 9 Color [...] - x10(3)/ No No May 9 4.8 [facility] informa informa 2013 tion in tion in 5:51 PM source source data data [place]# 0.6 0.0 - x10(3)/ No No May 9 1.3 mcL informa informa 2013 tion in tion in 5:51 PM source source data data Eos# 0.1 0.0 - x10(3)/ No No May 9 0.5 [facility] informa informa 2013 tion in tion in 5:51 PM source source data data Baso# 0.1 0.0 - x10(3)/ No No May 9 0.2 [facility] informa informa 2013 tion in tion in 5:51 PM source source data data CBC Observa Value Referen Units Interpr Notes Date tion ce etation Range LEUKOCY 7.7 4.0 - x10(3)/ No No May 9 MARIBETH 11.0 [facility] informa informa 2013 tion in tion in 5:51 PM source source data data Erythro 4.49 3.80 - x10(6)/ No No May 9 cytes 5.10 [facility] informa informa 2013 [#/volu tion in tion [...] oeae ed DNA Specime probe n using [employer] A negativ e result does not rule out the presenc e of DNA in concent rations below\\. br\\the level of detecti on of the assay.\\ .br\\\\.b r\\The perform ance charact eristic s of this test were validat ed by [facility] are Laborat ory. This laborat ory is [...] in 6:11 AM source source data data [place]# 0.6 0.0 - x10(3)/ No No Feb [...] Survey\\ .br\\Ref erral from:\\. br\\Dr. MYKE PRECIADO [facility] are\\.br \\SEP Laboris ts [address]\\. br\\[address] [place] [address]\\. br\\Fami ly Birthpl kelsi Early Childhood Specialist \\.br\\[place] [address] Reading Room \\.br\\P sidney: Fax \\.br\\F ax: \\.br\\- ------- ------- ------- ------- ------- ------- ------- ------- ------- ------\\ .br\\PAT IENT INFORMA TION:\\. br\\Name : MAKENZIE ARGUETA MR#: [id number] 6\\.br\\A ge: 23 y/o Exam Date: 4\\.br\\D OB: 991 Visit #: 6\\.br\\L MP: 013 [facility]atio n[facility]\\.br\\ [facility] are-- [place]\\.br\\# Fetuses : 1\\.br\\I NDICATI [...] r\\HL/BP D: 0.73 FL/BPD: 0.81\\.b r\\Left Kidney: 45m96h2 9mm Right Kidney: 81s14c6 5mm\\.br \\R.Pelv is:5.5m m\\.br\\H umerus: 57.0 mm [...] \\.br\\Fo ur Chamber [place] RVOT\\.b r\\Cardi ac [place] Cardiac Positio n\\.br\\F etal Heart Rate Diaphra gm\\.br\\ Ventral Wall Stomach \\.br\\Ki dney - Left Kidney - Right\\. br\\Blad abr Humerus - Left\\.b r\\Humer us - Right Forearm - Right\\. br\\Hand - Right Femur - Left\\.b r\\Femur - Right Lower Leg - Left\\.b r\\Lower Leg - Right\\. br\\Subo ptimal\\ .br\\--- ------- \\.br\\In tracran ial Anatomy Face\\.b r\\Cervi fracnia Spine Thoraci c Spine\\. br\\Lumb ar Spine [...] br\\Abno rmal\\.b r\\----- ---\\.br \\None identif ied\\.br \\LINING MARKER FINDING S:\\.br\\ Ovaries : Right: - 23 [...] Testing \\.br\\Re janel from:\\. br\\Dr. MYKE PRECIADO [facility] are\\.br \\SEP Laboris ts [address]\\. br\\[address] [place] [place] [address]\\. br\\Fami ly Birthpl kelsi Early Childhood Specialist \\.br\\[place] [address] Reading Room \\.br\\P sidney: [phone] Fax \\.br\\F ax: [phone]\\.br\\- ------- ------- ------- ------- ------- ------- ------- ------- ------- ------\\ .br\\PAT IENT INFORMA TION:\\. br\\Name : MAKENZIE ARGUETA MR#: [id number] 6\\.br\\A ge: 23 y/o Exam Date: 4\\.br\\D OB: 991 Visit #: 5\\.br\\L MP: 013 Locatio n: [facility]\\.br\\ [facility] are-- [place]\\.br\\# Fetuses : 1\\.br\\I NDICATI [...] x10(3)/ No No Feb 06 MARIBETH 11.0 [facility] informa informa 2013 tion in tion in 7:55 PM source source data data Erythro 3.89 3.80 - x10(6)/ No No Feb 06 cytes 5.10 [facility] informa informa 2013 [#/volu tion in tion [...] Testing \\.br\\Re ferral from:\\. br\\Dr. MERVIN RUSHING [facility] are\\.br \\[facility] [address]\\. br\\[address] [facility] [address]\\. br\\[place] [address] Early Childhood Specialist \\.br\\P sidney: Ext. 6616 Reading Room \\.br\\F ax: [phone] Fax \\.br\\- ------- ------- ------- ------- ------- ------- ------- ------- ------- ------\\ .br\\PAT IENT INFORMA TION:\\. br\\Name : MAKENZIE ARGUETA MR#: [id number] 6\\.br\\A ge: 23 y/o Exam Date: 4\\.br\\D OB: 991 Visit #: 4\\.br\\L MP: 013 [facility]atio n[facility]\\.br\\ [facility] are-- [place]\\.br\\# Fetuses : 1\\.br\\I NDICATI [...] \\36 47 wks 36 4/7 wks 03/02/14 \\.br\\VA ESENTAT ION/COR D/PLACE NTA/CER VIX:\\.b r\\Prese ntation [...] Testing \\.br\\Re ferral from:\\. br\\Dr. MERVIN RUSHING [facility] are\\.br \\[facility] [address] [employer]\\. br\\[address] [facility] [address] [facility] [address] [place] [address]\\. br\\[place] [address] Early Childhood Specialist [phone]\\.br\\P sidney: Ext. 6616 Reading Room [phone]\\.br\\F ax: Fax \\.br\\- ------- ------- ------- ------- ------- ------- ------- ------- ------- ------\\ .br\\PAT IENT INFORMA TION:\\. br\\Name : MAKENZIE ARGUETA MR#: [id number] 6\\.br\\A ge: 23 y/o Exam Date: 4\\.br\\D [...] ------- ------- ------- ------\\ .br\\CHELA ING:\\.b r\\Assig daina GA\\.br\\ GA by LMP (LMP) TO\\.br \\32 5/7 wks 32 5/7 wks 03/02/14 \\.br\\VA ESENTAT ION/COR D/PLACE NTA/CER VIX:\\.b r\\Prese ntation [...] Survey\\ .br\\Ref erral from:\\. br\\Dr. MERVIN RUSHING [facility] are\\.br \\[address]\\. br\\[address] [place], [place] [address] [address]\\. br\\[place] [address] Early Childhood Specialist \\.br\\P sidney: Ext. 6616 Reading Room \\.br\\F ax: Fax \\.br\\- ------- ------- ------- ------- ------- ------- ------- ------- ------- ------\\ .br\\PAT IENT INFORMA TION:\\. br\\Name : MAKENZIE ARGUETA MR#: [id number] 6\\.br\\A ge: 23 y/o Exam Date: 11/02/19 14\\.br\\ : 991 Visit #: 2\\.br\\L MP: 013 Locatio n: [facility]\\.br\\ [facility] are-- [place]\\.br\\# Fetuses : 1\\.br\\I NDICATI [...] View\\.b r\\RVOT LVOT\\.b r\\Aorti c Arch Cardiac [place]\\.b r\\Cardi ac Positio n Heart Rate\\.b r\\Diaph [...] \\Kidney - Right (PYELEC TASIS-6 .2 MM)\\.br \\LINING MARKER FINDING S:\\.br\\ Uterus: Normal\\ .br\\Ova chrissie: Left: [...] br\\pelv is measure s 0.45 cm.\\.br \\MFM Maintenance Journeyman ing:\\.b r\\Dr. Acuna spoke with the patient [...] Survey\\ .br\\Ref erral from:\\. br\\Dr. MERVIN RUSHING [facility] are\\.br \\[facility] [employer]\\. br\\[address] [employer] [address] [place] [address]\\. br\\[place] [address] Early Childhood Specialist \\.br\\P sidney: Ext. 6616 Reading Room \\.br\\F ax: [phone] Fax \\.br\\- ------- ------- ------- ------- ------- ------- ------- ------- ------- ------\\ .br\\PAT IENT INFORMA TION:\\. br\\Name : MAKENZIE ARGUETA MR#: [id number] 6\\.br\\A ge: 23 y/o Exam Date: 4\\.br\\D OB: 991 Visit #: 1\\.br\\L MP: 013 [facility]atio n: [facility]\\.br\\ [facility] are-- [place]\\.br\\# Fetuses : 1\\.br\\I NDICATI [...] r Chamber View Aortic Arch\\.b r\\Cardi ac [place] Cardiac Positio n\\.br\\F etal Heart Rate Diaphra gm\\.br\\ IVC SVC\\.br \\Ventra l Wall Stomach \\.br\\Ki dney - Left Kidney - Right\\. br\\Blad bar Genital ia\\.br\\ Upper Extremi ties\\.b r\\Subop timal\\. br\\---- ------\\ .br\\Nos e Lips\\.b r\\RVOT LVOT\\.b r\\Lower Extremi ties\\.b r\\Not Visuali zed\\.br \\------ ------- -\\.br\\P rofile Orbits\\ .br\\Thr ee Vessel View Ductal Arch\\.b r\\Abnor mal\\.br \\------ --\\.br\\ None identif ied\\.br \\LINING MARKER FINDING S:\\.br\\ Ovaries : Left: Normal - [...] in 6:13 AM source source data data [place]# 1.1 0.0 - x10(3)/ No No Aug [...] in 6:20 PM source source data data [place]# 1.1 0.0 - x10(3)/ No No Aug [...] ------- ------- ------- ------- ---\\.br \\[facility] n[facility] [employer] 94% 1 in 25 1 in 400\\.br [...] in 3,000 Caucasi ans or [facility] z[facility] [employer], 1 in\\.br\\ 8,000 Hispani cs, 1 in [...] T\\.br\\( c.262_2 63delTT ), A455E (c.1364 C>A), W248bgi \\.br\\(c .1519_1 521de;A TC), A661scc (c.1521 _1523de ;CTT), V520F\\. br\\(c.1 558G>T) , G542X (c.1624 G>T), S549N (c.1646 G>A), S549R\\. br\\(c.1 645A>C or c.1647T >G), G551D (c.1652 G>A), R553X\\. br\\(c.1 657C>T) , R560T (c.1679 G>C), 621+1G> T (c.489+ 1G>T),\\ .br\\711 +1G>T (c.579+ 1G>T), 1078del T (c.948d elT), R8543Q\\ .br\\(c. 3484C>T ), I2835X (c.3846 G>A), V0904O (c.3909 C>G),\\. br\\1717 -1G>A (c.1585 -1G>A), 1898+1G >A (c.1766 +1G>A), 2183AA> G\\.br\\( c.2051_ 2052del AAinsG) , 2184del A (c.2052 Freddy), 2789+5G >A\\.br\\ (c.2657 +5G>A), 3120+1G >A (c.2988 +1G>A), 3659del C\\.br\\( c.3528d elC), 3849+10 kbC>T (c.3717 +58748I >T), 3876del A\\.br\\( c.3744d Kalpana), 3905ins T (c.3773 _3774in sT). For specime ns\\.br\\ positiv e for R117H, the IVS-8/p cayla T (c.1210 -12T[5_ 9] is\\.br\\ analyze d. The mutatio ns tested are listed above accordi ng\\.br\\ to the legacy nomencl ature; the standar d nomencl ature is\\.br\\ listed in [facility] eses. Panel mutatio ns are reporte d\\.br\\a ccordin g to the legacy nomencl ature.\\ .br\\CLI NICAL SENSITI VITY: [place]ken[place] zi [employer] 94 percent ,\\.br\\C aucasia n 89 percent [...] . See Complia nce Stateme nt C: [employer]/CS Hep Prf-Ac Observa Value Referen Units Interpr [...] ce] in Archite Serum ct Anti-HC V). [facility] are Laborat ory recomme nds collect ing [...] 2012 [facility] [Presen source source e\\.br\\N ce] [...] Jul 14 alue informa 2012 [facility] source e\\.br\\\\ data .br\\0.9 0 [...] oeae ed DNA Specime probe n using [employer] A negativ e result does not rule out the presenc e of DNA in concent rations below\\. br\\the level of detecti on of the assay.\\ .br\\\\.b r\\The perform ance charact eristic s of this test were validat ed by [facility] are Laborat ory. This laborat ory is [...] Notes Date tion ce etation Range Choriog 89477 0 - 5 mIU/mL High Females Jul [...]
[2017-02-08 16:59] VITALS: BP 143/95
== END 2017-02-08 17:00 | disposition home or self-care (01) ==
LOC: ER 15:42 → UTC 15:56 → ER 15:56 → UTC 17:00
DX: J03.90 Acute tonsillitis, unspecified (principal); J06.9 Acute upper respiratory infection, unspecified; I10 Essential (primary) hypertension; Z72.0 Tobacco use

== ENCOUNTER 2017-03-05 19:51 | Emergency (ER) | payer MEDICAID ==
[~2017-03-05] VITALS: Ht 167.6 cm; Wt 90.7 kg
[~2017-03-05 19:51] MED LIST changes: +BROMFED DM COU118 ML PO; +BUSPIRONE HCL15 MG PO; +OMNICEF 300 MG300 MG PO
--- OUTSIDE RECORDS SUMMARY | 2017-03-05 20:30 | External Medical Summary Rpt ---
Author Author , KRISTEN PETERSON Address Unknown Phone [email or web address] Purpose Continuity of Care Document - 09-16-2012 through 2016 Results Labs Lab Lab Date Result Refere Interp Status Commen Order Detail nces retati t Range on Streptococcus pyogenes Ag [Presence] in Unspecified specimen (02-08-2017 16:09) Strepto NOT NOTDETE complet coccus 0[address] ed pyogene 16:09 D s Ag [Presen ce] in Unspeci fied specime n
--- OUTSIDE RECORDS SUMMARY | 2017-03-05 20:30 | External Medical Summary Rpt ---
Author Author , KRISTEN PETERSON Address Unknown Phone Purpose Continuity of Care Document - 09-16-2012 through 2016 Results Labs Lab Lab Date Result Refere Interp Status Commen Order Detail nces retati t Range on Streptococcus pyogenes Ag [Presence] in Unspecified specimen (02-08-2017 16:09) Strepto NOT NOTDETE complet coccus 0[address] ed pyogene 16:09 D s Ag [Presen ce] in Unspeci fied specime n
--- OUTSIDE RECORDS SUMMARY | 2017-03-05 20:32 | External Medical Summary Rpt ---
Demographics Preferred Language [place] Marital Status Unknown Sabianism Affiliation Unknown Race Unknown Ethnic Group Unknown Author Author , KRISTEN PETERSON Address Unknown Phone Immunization Unable to retrieve immunization data due to connection failure with Immunization Registry. Please try again later.
--- OUTSIDE RECORDS SUMMARY | 2017-03-05 20:32 | External Medical Summary Rpt ---
Demographics Preferred Language Romansh Marital Status Unknown Restorationism Affiliation Unknown Race Unknown Ethnic Group Unknown Author Author , KRISTEN PETERSON Address Unknown Phone Immunization Unable to retrieve immunization data due to connection failure with Immunization Registry. Please try again later.
--- OUTSIDE RECORDS SUMMARY | 2017-03-05 20:34 | External Medical Summary Rpt ---
Author Author MARCIAEMMANUEL [employer], [employer] Organization [employer] Address Unknown Phone Unavailable Results Streptococcus pyogenes Ag [Presence] in Unspecified specimen Observa Value Referen Units Interpr Notes Date tion ce etation Range Strepto NOT NOTDETE No No LOT # Feb 3 coccus DETECTE CTED informa informa NA EXP 2016 pyogene D tion in tion in DATE NA 4:09 PM s Ag source source [Presen data data ce] in Unspeci fied specime n POC UA Observa Value Referen Units Interpr Notes Date tion ce etation Range UA Yellow No No No No January 02 Color informa informa informa informa 2014 POC tion in [...] 02 POC e e informa informa informa 2014 tion in tion in tion in 1:06 PM source source source data data data UA Negativ Negativ No No No January 02 Ketones e e informa informa informa 2014 POC tion in tion in tion in 1:06 PM source source source data data data UA Negativ Negativ No No No January 02 Blood e e informa informa informa 2014 POC tion in tion in tion in 1:06 PM source source source data data data UA pH 5.5 5.0 - No No No January 02 POC 8.0 informa informa informa 2014 tion in tion in tion in 1:06 PM source source source data data data UA Negativ Negativ No No No January 02 Protein e e informa informa informa 2014 POC tion in tion in tion in 1:06 PM source source source data data data UA 0.2 <=1 No No No January 02 Urobili mg/dl mg/dl informa informa informa 2014 nogen tion in tion in tion in 1:06 PM POC source source source data data data UA Negativ Negativ No No No January 02 Nitrite e e informa informa informa 2014 POC [...] January 02 POC 1.035 informa informa informa 2014 tion in tion in tion in 1:06 PM source source source data data data Lipase Observa Value Referen Units Interpr Notes Date tion ce etation Range Lipase 10 13 - 60 IU/L Low No January 02 Lvl informa 2014 tion in 1:24 PM source data HCG [...] No January 02 Percent informa informa informa 2015 tion in tion in tion in 1:03 PM source source source data data data Neut# 4.6 1.8 - x10(3)/ No No January 02 7.7 mcL informa informa 2014 tion in tion in 1:03 PM source source data data Lymph# 2.2 0.6 - x10(3)/ No No January 02 4.8 mcL informa informa 2015 tion in tion in 1:03 PM source source data data Ozark# 0.7 0.0 - x10(3)/ No January 02 1.3 mcL informa informa 2015 tion in tion in 1:03 PM source [...] - x10(6)/ No January 02 cytes 5.10 mcL informa informa 2014 [#/volu tion in tion [...] No January 02 cyte 99.8 informa informa 2015 mean tion in tion in 1:03 PM corpusc source source ular data data volume [Entiti c volume] by Automat ed count Erythro 29.5 27.0 - pg No No January 02 cyte 34.3 informa informa 2015 mean tion in tion [...] No No January 02 10.8 informa informa 2015 tion in tion in 1:03 PM source [...] Oct 9 Est e informa l informa 2013 POC tion in tion in 6:03 PM source source data data UA SG 1.020 1.001 - No No No Oct 9 POC 1.035 informa informa informa 2014 tion in tion in tion in 6:03 PM source source source data data data UA Observa Value Referen Units Interpr Notes Date tion ce etation Range UA [place] No No Abnorma No Oct 9 Color informa informa l informa 2013 tion in tion in tion [...] No Oct 9 8.0 informa informa informa 2014 tion in tion in tion in 6:29 PM source source source data data data UA 30 Negativ No Abnorma No Oct 9 Protein mg/dl e informa l informa 2013 tion in tion in 6:29 PM source source data data UA 0.2 <=1 No No No May 17 Urobili mg/dl mg/dl informa informa informa 2013 nogen tion in tion in tion in 6:29 PM source source source data data data UA Negativ Negativ No No No May 17 Nitrite e e informa informa informa 2014 tion in tion in tion in 6:29 PM source source source data data data UA Leuk Trace Negativ No Abnorma No May 17 Est e informa l informa 2014 tion [...] UA Many No /HPF Abnorma No May 17 Bacteri informa l informa 2014 a tion in tion in 6:29 PM source source data data HCG Qual Observa Value Referen Units Interpr Notes Date tion ce etation Range HCG Negativ No No No No May 17 QUAL e informa informa informa informa 2013 tion [...] Lymphoc 33.0 No % No No May 17 ytes informa informa informa 2013 [#/volu tion [...] Eos 1.1 No % No No May 17 Percent informa informa informa 2014 tion in tion in tion in 5:51 PM source source source data data data Baso 0.7 No % No No May 9 Percent informa informa informa 2014 tion in tion in tion in 5:51 PM source source source data data data Neut# 4.4 1.8 - x10(3)/ No No Oct 9 7.7 mcL informa informa 2014 tion in tion in 5:51 PM source source data data Lymph# 2.5 0.6 - x10(3)/ No No May 9 4.8 mcL informa informa 2014 tion in tion in 5:51 PM source source data data Ozark# 0.6 0.0 - x10(3)/ No No May 9 1.3 mcL informa informa 2014 tion in tion in 5:51 PM source source data data Eos# 0.1 0.0 - x10(3)/ No No May 9 0.5 mcL informa informa 2013 tion in tion in 5:51 PM source source data data Baso# 0.1 0.0 - x10(3)/ No No May 9 0.2 mcL informa informa 2013 tion in tion in 5:51 PM source source data data CBC Observa Value Referen Units Interpr Notes Date tion ce etation Range LEUKOCY 7.7 4.0 - x10(3)/ No No May 9 MARIBETH 11.0 mcL informa informa 2013 tion in tion in 5:51 PM source source data data Erythro 4.49 3.80 - x10(6)/ No No May 9 cytes 5.10 mcL informa informa 2013 [#/volu tion in tion in 5:51 PM me] in source source Blood data data by Automat ed count Hemoglo 13.1 12.0 - gm/dL No No May 9 bin 15.6 informa informa 2013 [Mass/v tion in tion in 5:51 PM olume] source source in data data Blood Hematoc 39.2 35.7 - % No No May 9 rit 45.9 informa informa 2013 [Volume tion in tion in 5:51 PM source source Fractio data data n] of Blood by Automat ed count Erythro 87.2 82.5 - fL No No Oct 9 cyte 99.8 informa informa 2013 mean tion in tion in 5:51 PM corpusc source source ular data data volume [Entiti c volume] by Automat ed count Erythro 29.2 27.0 - pg No No May 17 cyte 34.3 informa informa 2013 mean tion [...] oeae ed DNA Specime probe n using [employer] A negativ e result does not rule out the presenc e of DNA in concent rations below\\. br\\the level of detecti on of the assay.\\ .br\\\\.b r\\The perform ance charact eristic s of this test were validat ed by [facility] are Laborat ory. This laborat ory is [...] No Feb 08 Percent informa informa informa 2014 tion in tion in tion in 6:11 AM source source source data data data Baso 0.3 No % No No Feb 3 Percent informa informa informa 2014 tion in tion in tion in 6:11 AM source source source data data data Neut# 6.1 1.8 - x10(3)/ No No Ambrose 3 7.7 mcL informa informa 2014 tion in tion in 6:11 AM source source data data Lymph# 1.4 0.6 - x10(3)/ No No Feb 3 4.8 mcL informa informa 2013 tion in tion in 6:11 AM source source data data [place]# 0.6 0.0 - x10(3)/ No No Feb 3 1.3 mcL informa informa 2014 tion in tion in 6:11 AM source source data data Eos# 0.1 0.0 - x10(3)/ No No Feb 3 0.5 mcL informa informa 2013 tion in tion in 6:11 AM source source data data Baso# 0.0 0.0 - x10(3)/ No No Feb 3 0.2 mcL informa informa 2013 tion in tion in 6:11 AM source source data data CBC Observa Value Referen Units Interpr Notes Date tion ce etation Range LEUKOCY 8.1 4.0 - x10(3)/ No No Feb 3 MARIBETH 11.0 mcL informa informa 2013 tion [...] No Feb 08 cyte 99.8 informa informa 2014 mean tion in tion in 6:11 AM corpusc source source ular data data volume [Entiti c volume] by Automat ed count Erythro 30.9 27.0 - pg No No Feb 08 cyte 34.3 informa informa 2013 mean tion in tion in 6:11 AM corpusc source source ular data data hemoglo bin [Entiti c mass] by Automat ed count Erythro 34.4 32.1 - gm/dL No No Feb 08 cyte 35.3 informa informa 2013 mean tion [...] Level Feb 07 Platele 1.13 informa informa of 2013 t poor tion in tion in [...] No Feb 07 cyte 99.8 informa informa 2014 mean tion in tion in 10:47 corpusc source source AM ular data data volume [Entiti c volume] by Automat ed count Erythro 29.6 27.0 - pg No No Feb 07 cyte 34.3 informa informa 2014 mean tion in tion in 10:47 corpusc source source AM ular data data hemoglo bin [Entiti c mass] by Automat ed count Erythro 33.4 32.1 - gm/dL No No Feb 07 cyte 35.3 informa informa 2014 mean tion in tion in 10:47 corpusc source source AM ular data data hemoglo bin concent ration [Mass/v olume] by Automat ed count Erythro 14.2 11.5 - % No No Feb 07 cyte 15.0 informa informa 2014 distrib tion in tion in 10:47 ution source source AM width data data [Ratio] by Automat ed count Platele 241 144 - x10(3)/ No No Feb 2 ts 423 mcL informa informa 2014 [#/volu tion in tion in 10:47 me] in source source AM Blood data data by Automat ed count MPV 9.1 6.8 - fL No No Feb 2 10.8 informa informa 2014 tion in tion in 10:47 source source AM data data PLT Count Observa Value Referen Units Interpr Notes Date tion ce etation Range Platele 241 144 - x10(3)/ No No Feb 2 ts 423 mcL informa informa 2014 [#/volu tion in tion in 10:47 me] in source source AM Blood data data by Automat ed count MPV 9.1 6.8 - fL No No Feb 2 10.8 informa informa 2014 tion in tion in 10:47 source source AM data data PN US OB FOLLOW UP TRANSABDOMINAL APPROACH EACH GESTATION Observa Value Referen Units Interpr Notes Date tion ce etation Range Obstetr No No No No Feb 2 ic informa informa informa informa 2014 Ultraso tion in tion in tion in tion in und source source source source Report\\ data data data data .br\\Det michael Survey\\ .br\\Ref erral from:\\. br\\Dr. MYKE PRECIADO [facility] are\\.br \\SEP Laboris ts [address] [facility] [address]\\. br\\[address] [facility] [place] [address]\\. br\\Fami ly Birthpl kelsi Dental Scheduler \\.br\\[place] [address] Reading Room \\.br\\P sidney: [phone] Fax \\.br\\F ax: [phone] 3\\.br\\- ------- ------- ------- ------- ------- ------- ------- ------- ------- ------\\ .br\\PAT IENT INFORMA TION:\\. br\\Name : MAKENZIE ARGUETA MR#: [id number] 6\\.br\\A ge: 23 y/o Exam Date: 4\\.br\\D OB: 991 Visit #: 6\\.br\\L MP: 013 Locatio n: Chaitanya Cuevas th\\.br\\ [facility] are-- [place]\\.br\\# Fetuses : 1\\.br\\I NDICATI ONS: Follow- up oligohy dramnio s, hyperte nsion\\. br\\---- ------- ------- ------- ------- ------- ------- ------- ------- ------- ---\\.br \\PHYSIC AL EXAM:\\. br\\Marcio ht: 5' 6"\\.br\\ Pre-Pre gnancy Weight: 198 [...] r\\HL/BP D: 0.73 FL/BPD: 0.81\\.b r\\Left Kidney: [id number] 9mm Right Kidney: 55m44k3 5mm\\.br \\R.Pelv is:5.5m m\\.br\\H umerus: 57.0 mm [...] \\.br\\Fo ur [place] RVOT\\.b r\\Cardi ac [place] Cardiac Positio n\\.br\\F etal Heart Rate Diaphra [...] br\\Abno rmal\\.b r\\----- ---\\.br \\None identif ied\\.br \\LATEX RIBBON MACHINE OPERATOR FINDING S:\\.br\\ Ovaries : Right: - 23 [...] .br\\Ant enatal Testing \\.br\\Re ferral from:\\. br\\Dr. MYKE PRECIADO [facility] are\\.br \\APR Laboris ts [address] [facility] [address]\\. br\\[address] [facility] [place] [address]\\. br\\Fami ly Birthpl kelsi Dental Scheduler \\.br\\[place] [address] Reading Room \\.br\\P sidney: Fax \\.br\\F ax: \\.br\\- ------- ------- ------- ------- ------- ------- ------- ------- ------- ------\\ .br\\PAT IENT INFORMA TION:\\. br\\Name : MAKENZIE ARGUETA MR#: [id number] 6\\.br\\A ge: 23 y/o Exam Date: 4\\.br\\D OB: 991 Visit #: 5\\.br\\L MP: 013 Locatio n: [facility]\\.br\\ [facility] are-- [place]\\.br\\# Fetuses : 1\\.br\\I NDICATI ONS: Follow- up oligohy dramnio s, hyperte nsion\\. br\\---- ------- ------- ------- ------- ------- ------- ------- ------- ------- ---\\.br \\DATING :\\.br\\A ssigned GA\\.br\\ GA by LMP (LMP) TO\\.br \\36 12/13 wks 36 12/13 wks 03/02/14 \\.br\\-- ------- ------- ------- ------- ------- ------- ------- ------- ------- -----\\. br\\COMM ENTS:\\. br\\See OB FU exam for report. \\.br\\El ecttyler martell signed by MALINDA \\.br\\SHAYY De La Torre MD on 4 at\\.br\\ 10:04 am\\.br\\ ------- ------- ------- ------- ------\\ .br\\MAN RUBIO MD\\.br\\ ------- ------- ------- ------- ------- ------- ------- ------- ------- ------- \\.br\\So nograph er: Linda Frias , RT, RDMS Hemogram Observa Value Referen Units Interpr Notes Date tion ce etation Range LEUKOCY 10.6 4.0 - x10(3)/ No No Feb 06 MARIBETH 11.0 mcL informa informa 2013 tion [...] informa 2013 mean tion in tion in 7:55 PM corpusc source source ular data data hemoglo bin [Entiti c mass] by Automat ed count Erythro 34.4 32.1 - gm/dL No No Feb 06 cyte 35.3 informa informa 2013 mean tion in tion in 7:55 PM [...] IgG Int e informa informa informa informa 2014 tion in tion in tion in tion in 11:06 source source source source PM data data data data ABORh Observa Value Referen Units Interpr Notes Date tion ce etation Range ABORh A POS No No No No Feb 06 Int informa informa informa informa 2014 tion in tion in tion in tion in 11:06 source source source source PM data data data data DOA Screen Observa Value Referen Units Interpr Notes Date tion ce etation Range Cannabi Absent 50 No No No Feb 1 noid ng/mL informa informa informa 2014 Screen tion in tion in tion in 9:25 PM source source source data data data Benzodi Absent 200 No No No Feb 06 azepine ng/mL informa informa informa 2014 s tion in tion in tion in 9:25 PM Screen source source source data data data Cocaine Absent 150 No No No Feb 06 Screen ng/mL informa informa informa 2014 tion in tion in tion in 9:25 PM source source source data data data Opiate Absent 300 No No No Feb 06 300 ng/mL informa informa informa 2014 Screen tion in tion in tion in 9:25 PM source source source data data data Barbitu Absent 200 No No No Feb 1 rate ng/mL informa informa informa 2014 Screen tion in tion in tion in 9:25 PM source source source data data data Ampheta Absent 500 No No No Feb 06 mine ng/mL informa informa informa 2014 Screen tion in tion in tion in 9:25 PM source source source data data data Phencyc Absent 25 No No No Feb 06 lidine ng/mL informa informa informa 2014 Screen tion in tion in tion in 9:25 PM source source source data data data Methado Absent 300 No No No Feb 1 ne ng/mL informa informa informa 2014 Screen tion in tion in tion in 9:25 PM source source source data data data Oxycodo Absent 100 No No No Feb 1 ne ng/mL informa informa informa 2014 Screen tion in tion in tion in 9:25 PM source source source data data data 6 AM Absent 10 No No No Feb 1 (Heroin ng/mL informa informa informa 2013 ) tion in tion in tion in 9:25 PM Screen source source source data data data Bupreno Absent 5 ng/mL No No No Feb 1 rphine informa informa informa 2014 Screen tion in tion in tion in 9:25 PM source source source data data data Creatin 282.6 No mg/dL No \\.br\\Gr Ambrose 1 ine Ur informa informa eater 2013 tion in tion in than 9:25 PM source source 20: data data Consist ent with valid sample\\ .br\\Gre ater than 2 but less than 20: Possibl e dilutio n\\.br\\L ess than 2: Questio nable valid sample Procedu These No No No No Feb 06 re Note drug informa informa informa informa 2013 Screen classes tion in tion in tion in tion in 9:25 PM have source source source source been data data data data screene d by immunoa ssasony and are for medical purpose s only. [...] informa 2014 mean tion in tion in 6:10 PM corpusc source source ular data data hemoglo bin [Entiti c mass] by Automat ed count Erythro 34.1 32.1 - gm/dL No No Feb 06 cyte 35.3 informa informa 2014 mean tion in tion in 6:10 PM [...] informa informa 2013 tion in tion in 6:10 PM source [...] No Feb 06 8.0 informa informa informa 2014 tion in [...] .br\\Ant enatal Testing \\.br\\Re janel from:\\. br\\[facility] MERVIN [facility].br \\[facility] [address] [facility]\\. br\\[address] [facility] [address] [place] [address]\\. br\\[place] [address] Dental Scheduler \\.br\\P sidney: Ext. 6616 Reading Room \\.br\\F ax: [phone] Fax \\.br\\- ------- ------- ------- ------- ------- ------- ------- ------- ------- ------\\ .br\\PAT IENT INFORMA TION:\\. br\\Name : MAKENZIE ARGUETA MR#: [id number] 6\\.br\\A ge: 23 y/o Exam Date: 4\\.br\\D OB: 991 Visit #: 4\\.br\\L MP: 013 Locatio n: [facility]\\.br\\ [facility] are-- [place]\\.br\\# Fetuses : 1\\.br\\I NDICATI [...] GA\\.br\\ GA by LMP (LMP) TO\\.br \\36 11/13 wks 36 4/7 wks 03/02/14 \\.br\\CT ESENTAT ION/COR D/PLACE NTA/CER VIX:\\.b r\\Prese ntation [...] .br\\Ant enatal Testing \\.br\\Re janel from:\\. br\\Dr. MERVIN RUSHING [facility] are\\.br \\[facility] [address] [facility]\\. br\\[address] [facility] [address] [place] [address]\\. br\\[place] [address] Dental Scheduler \\.br\\P sidney: Ext. 6616 Reading Room \\.br\\F ax: Fax \\.br\\- ------- ------- ------- ------- ------- ------- ------- ------- ------- ------\\ .br\\PAT IENT INFORMA TION:\\. br\\Name : MAKENZIE ARGUETA MR#: [id number] 6\\.br\\A ge: 23 y/o Exam Date: 4\\.br\\D OB: 991 Visit #: 3\\.br\\L MP: 013 Locatio n: [facility]\\.br\\ [facility] are-- [place]\\.br\\# Fetuses : 1\\.br\\I NDICATI ON: Hyperte [...] GA\\.br\\ GA by LMP (LMP) TO\\.br \\32 5/ wks 32 5/7 wks 03/02/14 \\.br\\CT ESENTAT ION/COR D/PLACE NTA/CER VIX:\\.b r\\Prese ntation [...] reviewe d and the patient verbali zed dottie anding. \\.br\\Th e antenat al testing was [...] Notes Date tion ce etation Range Lipase 17 13 - [...] Interpr Notes Date ti ce etation Range Activat 29.8 24.4 - second( No Therape December 23 ed 35.0 s) informa utic 2013 partial tion in range 7:17 PM [...] Level December 23 Platele 1.13 informa informa of 2013 t poor tion in tion in [...] count Erythro 90.2 82.5 - fL No December 23 cyte 99.8 informa informa 2013 mean tion in tion in 7:10 PM corpusc source source ular data data volume [Entiti c volume] by Automat ed count Erythro 30.1 27.0 - pg No December 23 cyte 34.3 informa informa 2013 mean tion in tion in 7:10 PM corpusc source source ular data data hemoglo bin [Entiti c mass] by Automat ed count Erythro 33.4 32.1 - gm/dL No December 23 cyte 35.3 informa informa 2013 mean tion in tion in 7:10 PM corpusc source source ular data data hemoglo bin concent ration [Mass/v olume] by Automat ed count Erythro 13.6 11.5 - % No December 23 cyte 15.0 informa informa [...] No No December 23 10.8 informa informa 2014 tion in tion in 7:10 PM source source data data DOA Screen Observa Value Referen Units Interpr Notes Date tion ce etation Range Cannabi Absent 50 No No No December 17 noid ng/mL informa informa informa 2014 Screen tion in tion in tion in 6:50 PM source source source data data data Benzodi Absent 200 No No No December 23 azepine ng/mL informa informa informa 2014 s tion in tion in tion in [...] December 23 ne ng/mL informa informa informa 2014 Screen [...] December 23 ine Ur informa informa eater 2013 tion in tion in than 6:50 PM source source 20: data data Consist ent with valid sample\\ .br\\Gre ater than 2 but less than 20: Possibl e dilutio n\\.br\\L ess than 2: Questio nable valid sample Procedu These No No No No December 23 re Note drug informa informa informa informa 2014 Screen classes tion in tion in tion in tion in 6:50 PM have source source source source been data data data data screene d by immunoa ssay and are for medical purpose s only. [...] in tion in tion in ti in 6:17 PM source source source source [...] nogen tion in tion in tion in 6:17 PM source source source data data data UA Negativ Negativ No No No December 23 Nitrite e e informa informa informa 2013 tion in tion in tion in 6:17 PM source source source data data data UA Leuk Negativ Negativ No No No December 23 Est e e informa informa informa 2013 tion [...] Nov 01 ic informa informa informa informa 2013 Ultraso tion in tion in tion in tion in und source source source source Report\\ data data data data .br\\Det michael Survey\\ .br\\Ref erral from:\\. br\\Dr. MERVIN RUSHING [facility] are\\.br \\[address]\\. br\\[address] [place] [address]\\. br\\[place] [address] Dental Scheduler \\.br\\P sidney: [phone] Ext. 66 Reading Room [phone]\\.br\\F ax: Fax \\.br\\- ------- ------- ------- ------- ------- ------- ------- ------- ------- ------\\ .br\\PAT IENT INFORMA TION:\\. br\\Name : MAKENZIE ARGUETA MR#: [id number] 6\\.br\\A ge: 23 y/o Exam Date: 11/02/19 14\\.br\\ : 991 Visit #: 2\\.br\\L MP: 013 [facility]\\.br\\ [facility] are-- [place]\\.br\\# Fetuses : 1\\.br\\I NDICATI ON: Follow up anatomy \\.br\\-- ------- ------- ------- ------- ------- ------- ------- ------- ------- -----\\. br\\DATI NG:\\.br \\Assign ed GA\\.br\\ GA by LMP GA by US (LMP) TO\\.br \\22 5/7 wks 22 1/7 wks 22 5/7 wks 03/02/14 \\.br\\BI OMETRY: \\.br\\BP D: 54.7 mm 22 5/7 wks HC: 206.1 mm 22 5/7 wks\\.br \\(46%) (38%)\\. br\\Femu r: 38.1 mm 22 1/7 wks AC: 170.8 mm 22 0/7 wks\\.br [...] View\\.b r\\RVOT LVOT\\.b r\\Aorti c Arch Cardiac [place]\\.b r\\Cardi ac Positio n Heart Rate\\.b r\\Diaph [...] \\Kidney - Right (PYELEC TASIS-6 .2 MM)\\.br \\LATEX RIBBON MACHINE OPERATOR FINDING S:\\.br\\ Uterus: Normal\\ .br\\Ova chrissie: Left: [...] br\\pelv is measure s 0.45 cm.\\.br \\MFM Retaining Room Cutter ing:\\.b r\\Dr. Acuna spoke with the patient [...] pyelect asis\\.b r\\persi sts, recomme nd the infant have a renal ultraso und within the\\.br \\first two weeks after .\\ .br\\The finding s and recomme ndation s were discuss ed with the patient .\\.br\\T shital you for this referra l.\\.br\\ 10 min face to face time\\.b r\\Elect ronical ly signed by PIERRE \\.br\\CO Ciro GARIBAY on 11/02/19 14 at\\.br\\ 10:53 am\\.br\\ ------- ------- ------- ------- ------\\ .br\\ELVIS ACUNA M.D.\\.b r\\----- ------- ------- ------- ------\\ .br\\Son ozzy r: Emmie Lentz RDMS PN US OB DETAIL ANATOMY SINGLE OR FIRST GESTATION Observa Value Referen Units Interpr Notes Date tion ce etation Range Obstetr No No No No Mar 7 ic informa informa informa informa 2013 Ultraso tion in tion in tion in tion in und source source source source Report\\ data data data data .br\\Det michael Survey\\ .br\\Ref erral from:\\. br\\Dr. MERVIN RUSHING [facility] are\\.br \\[facility] [address] [address] [facility]\\. br\\[address] [facility] [employer] [place] [address] [place] [address]\\. br\\[place] [address] Dental Scheduler \\.br\\P sidney: Ext. 6616 Reading Room [phone]\\.br\\F ax: Fax \\.br\\- ------- ------- ------- ------- ------- ------- ------- ------- ------- ------\\ .br\\PAT IENT INFORMA TION:\\. br\\Name : MAKENZIE ARGUETA MR#: [id number] 6\\.br\\A ge: 23 y/o Exam Date: 4\\.br\\D OB: 991 Visit #: 1\\.br\\L MP: 013 Locatio n: [facility].br\\ [facility] are-- [place]\\.br\\# Fetuses : 1\\.br\\I NDICATI ON: Exclude anomali [...] r Chamber [place] Aortic Arch\\.b r\\Cardi ac [place] Cardiac Positio n\\.br\\F etal Heart Rate Diaphra gm\\.br\\ IVC SVC\\.br \\Ventra l Wall Stomach \\.br\\Ki dney - Left Kidney - Right\\. br\\Blad bar Genital ia\\.br\\ Upper Extremi ties\\.b r\\Subop timal\\. br\\---- ------\\ .br\\Nos e Lips\\.b r\\RVOT LVOT\\.b r\\Lower Extremi ties\\.b r\\Not Visuali zed\\.br \\------ ------- -\\.br\\P rofile Orbits\\ .br\\Thr ee Vessel View Ductal Arch\\.b r\\Abnor mal\\.br \\------ --\\.br\\ None identif ied\\.br \\LATEX RIBBON MACHINE OPERATOR FINDING S:\\.br\\ Ovaries : Left: Normal - 24 x 24 x 12 mm.\\.br \\Right: Normal - 29 x 27 x 23 mm.\\.br \\EFW Summary Table\\. br\\Exam Date Fetus # EFW Percent ile\\.br \\------ --- ------- ---- ------- ---\\.br \\10/13/13 1 373 %\\.br\\A MNIOTIC FLUID VOLUME: \\.br\\NO [...] 5:10\\.b r\\pm\\.b r\\----- ------- ------- ------- ------- -\\.br\\Chema BRANDT M.D.\\.b r\\----- ------- ------- ------- ------- -\\.br\\S onograp her: Michelle Espinozawell RDMS Auto Diff Observa Value Referen Units Interpr Notes Date tion ce etation Range Neutrop 70.0 No % No No Aug 11 hils informa informa informa 2013 [#/volu tion [...] in 6:13 AM source source data data [place]# 1.1 0.0 - x10(3)/ No No Aug [...] count Erythro 90.7 82.5 - fL No Aug 11 cyte 99.8 informa informa [...] count Erythro 33.4 32.1 - gm/dL No Aug 11 cyte 35.3 informa informa [...] count MPV 9.1 6.8 - fL No Aug 11 10.8 informa informa 2014 tion in tion in 6:13 AM source [...] Appear informa l informa 2013 tion in ti in 7:32 PM source source data data UA Negativ Negativ No No No Aug 10 Glucose e e informa informa informa 2013 tion in tion in ti in 7:32 PM source source source data data data UA Negativ Negativ No No No Aug 10 Ketones e e informa informa informa 2013 tion in ti in in 7:32 PM source source source data data data UA Trace Negativ No Abnorma No Aug 10 Blood e informa l informa 2013 tion in in 7:32 PM source source data data UA pH 6.0 5.0 - No No No Aug 10 8.0 informa informa informa 2013 tion in ti in ti in 7:32 PM source source source data data data Protein 100 Negativ No Abnorma No Aug 2 mg/dl e informa l informa 2013 [Mass/v tion in in 7:32 PM olume] source source in data data Urine by Test strip UA 0.2 <=1 No No No Aug 10 Urobili mg/dl mg/dl informa informa informa 2013 nogen tion in ti in ti in 7:32 PM source source source data data data UA Positiv Negativ No Abnorma No Aug 10 Nitrite e e informa l informa 2013 tion in ti in 7:32 PM source source data data UA Leuk Small Negativ No Abnorma No Aug 10 Est e informa l informa 2013 tion in ti in 7:32 PM source source data data [...] ] in source source Urine data data arnold danielson by Microsc opy high power field UA [...] Aug 10 Bacteri e informa l informa 2013 a tion in tion in 7:32 PM [...] UA SG 1.025 1.001 - No No No Aug 10 POC 1.035 informa informa informa 2014 tion in tion in tion in 6:00 [...] Blood Hematoc 36.7 35.7 - % No No Aug 10 rit 45.9 informa informa 2013 [Volume tion in tion in 6:20 PM source source Fractio data data n] of Blood by Automat ed count Erythro 90.3 82.5 - fL No No Aug 10 cyte 99.8 informa informa 2013 mean tion in tion in 6:20 PM corpusc source source ular data data volume [Entiti c volume] by Automat ed count Erythro 29.3 27.0 - pg No No Aug 10 cyte 34.3 informa informa 2013 mean tion in tion in 6:20 PM corpusc source source ular data data hemoglo bin [Entiti c mass] by Automat ed count Erythro 32.5 32.1 - gm/dL No No Aug 10 cyte 35.3 informa informa 2013 mean tion in tion in 6:20 PM corpusc source source ular data data hemoglo bin concent ration [Mass/v olume] by Automat ed count Erythro 14.6 11.5 - % No No Aug 10 cyte 15.0 informa informa 2014 distrib tion in tion in 6:20 PM [...] No Aug 10 4.8 mcL informa informa 2014 tion in tion in 6:20 PM source source data data [place]# 1.1 0.0 - x10(3)/ No No Aug 10 1.3 mcL informa informa 2013 tion in tion in 6:20 PM source source data data Eos# 0.0 0.0 - x10(3)/ No No Aug 10 0.5 mcL informa informa 2013 tion in tion in 6:20 PM source source data data Baso# 0.1 0.0 - x10(3)/ No No Aug 10 0.2 mcL informa informa 2013 tion in [...] 18 gene Applica informa informa informa informa 2012 p.R117H ble tion in tion in tion [...] ------- ------- ------- ------- ---\\.br \\Ashken nadya Congregation 94% 1 in 25 1 in 400\\.br [...] screeni n revisio n\\.br\\o f Sammi n [place] [facility] mutatio n panel.\\ [...] in 3,000 Caucasi ans or Ashkena zi Congregation, 1 in\\.br\\ 8,000 Hispani cs, 1 in [...] T\\.br\\( c.262_2 63delTT ), A455E (c.1364 C>A), U977msv \\.br\\(c .1519_1 521de;A TC), M387ueg (c.1521 _1523de ;CTT), V520F\\. br\\(c.1 558G>T) , G542X (c.1624 G>T), S549N (c.1646 G>A), S549R\\. br\\(c.1 645A>C or c.1647T >G), G551D (c.1652 G>A), R553X\\. br\\(c.1 657C>T) , R560T (c.1679 G>C), 621+1G> T (c.489+ 1G>T),\\ .br\\711 +1G>T (c.579+ 1G>T), 1078del T (c.948d elT), X8484R\\ .br\\(c. 3484C>T ), I8634H (c.3846 G>A), W2230A (c.3909 C>G),\\. br\\1717 -1G>A (c.1585 -1G>A), 1898+1G >A (c.1766 +1G>A), 2183AA> G\\.br\\( c.2051_ 2052del AAinsG) , 2184del A (c.2052 Freddy), 2789+5G >A\\.br\\ (c.2657 +5G>A), 3120+1G >A (c.2988 +1G>A), 3659del C\\.br\\( c.3528d elC), 3849+10 kbC>T (c.3717 +27921Y >T), 3876del A\\.br\\( c.3744d Kalpana), 3905ins T (c.3773 _3774in sT). For specime ns\\.br\\ positiv e for R117H, the IVS-8/p cayla T (c.1210 -12T[5_ 9] is\\.br\\ analyze d. The mutatio ns tested are listed above accordi ng\\.br\\ to the legacy nomencl ature; the standar d nomencl ature is\\.br\\ listed in [facility] eses. Panel mutatio ns are reporte d\\.br\\a ccordin g to the legacy nomencl ature.\\ .br\\CLI NICAL SENSITI VITY: Ashkena zi Congregation 94 percent ,\\.br\\C aucasia n 89 percent [...] . See Complia nce Stateme nt C: [email or web address] Hep Prf-Ac Observa Value Referen Units Interpr Notes Date tion ce etation Range Hepatit Negativ Negativ No No No Jul 14 is B e e informa informa informa 2013 virus tion in tion in tion in 11:08 surface source source source AM Ag data data data [Presen ce] in Serum by Immunoa ssay Alpha-2 Negativ Negativ No No No Jul 14 -Macrog e e informa informa informa 2013 lobulin tion in tion in tion in 11:08 source source source AM [Mass/v data data data olume] in Unspeci fied specime n Hepatit Negativ Negativ No No No Jul 14 is A e e informa informa informa 2013 virus tion in tion in tion in 11:06 Ab source source source AM [Units/ data data data volume] in Serum by Radioim munoass ay (FRANDY) Hepatit Positiv Negativ No Abnorma High Jul 14 is C e e informa l 2012 virus tion in cutoff 1:39 PM Ab source ratio [Presen data (>= 5, ce] in Archite Serum ct Anti-HC V). [facility] are Laborat ory recomme nds collect ing [...] < 0.90 Jul 14 virus informa alue - 2012 IgG Ab tion in tion in Negativ 1:18 PM [Presen source source e\\.br\\N ce] [...] Jul 14 alue informa 2012 tion in Negativ 1:10 PM source e\\.br\\\\ data .br\\0.9 0 [...] Range ABSC Negativ No No No No Dec 5 IgG Int e informa informa informa informa 2012 tion in tion in tion in tion in 7:32 PM source source source source data data data data ABORh Observa Value Referen Units Interpr Notes Date tion ce etation Range ABORh A POS No No No No Jul 5 Int informa informa informa informa 2012 tion [...] count Monocyt 8.1 No % No No Jul 13 es informa informa informa 2012 [#/volu tion in tion in tion in 4:01 PM me] in source source source Blood data data data by Automat ed count Eos 0.9 No % No No Dec 5 Percent informa informa informa 2012 tion in tion in tion in 4:01 PM source source source data data data Baso 0.4 No % No No Dec 5 Percent informa informa informa 2012 tion in tion in tion in 4:01 PM source source source data data data Neutrop 3.8 1.8 - x10(3)/ No No Jul 5 hils 7.7 mcL informa informa 2012 [...] LEUKOCY 6.1 4.0 - x10(3)/ No No Dec 5 MARIBETH 11.0 mcL informa informa 2012 tion in tion in 4:01 PM source source data data Erythro 3.81 3.80 - x10(6)/ No No Jul 5 cytes 5.10 mcL informa informa 2012 [#/volu [...] 226 144 - x10(3)/ No No Jul 13 ts 423 mcL informa informa 2012 [#/volu [...] Jul 11 trachom informa informa informa methodo 2013 atis/N. tion in tion in tion in logy is 6:14 AM source source source gonorrh data data data amplifi oeae ed DNA Specime probe n using [employer] A negativ e result does not rule out the presenc e of DNA in concent rations below\\. br\\the level of detecti on of the assay.\\ .br\\\\.b r\\The perform ance charact eristic s of this test were validat ed by [facility] are Laborat ory. This laborat ory is authori zed under the Clinica l\\.br\\L aborato ry Improve [...] n by Organis m specifi c culture BhCG Quant Observa Value Referen Units Interpr Notes Date ti ce etation Range Choriog 40040 0 - 5 mIU/mL High Females Jul [...] Interpr Notes Date ti ce etation Range Neutrop 62.8 No % No No Jul 07 hils informa informa informa 2012 [#/volu tion in tion in tion in 2:48 AM me] in source source source Blood data data data by Automat ed count Lymphoc 29.6 No % No Jul 07 ytes informa informa informa 2012 [#/volu tion in tion in tion in 2:48 AM me] in source source source Blood data data data by Automat ed count Monocyt 5.0 No % No Jul 07 es informa informa informa 2012 [#/volu tion in tion in tion in 2:48 AM me] in source source source Blood data data data by Automat ed count Eos 0.5 No % No Jul 07 Percent informa [...] data Eosinop 0.1 0.0 - x10(3)/ No Jul 07 hils 0.5 mcL informa [...] data Erythro 3.92 3.80 - x10(6)/ No No Jul 07 cytes 5.10 mcL informa [...] count Erythro 89.3 82.5 - fL No No Jul 07 cyte 99.8 informa informa 2012 mean tion in tion in 2:48 AM corpusc source source ular data data volume [Entiti c volume] by Automat ed count Erythro 29.9 27.0 - pg No Jul 07 cyte 34.3 informa informa 2012 mean tion in tion in 2:48 AM corpusc source source ular data data hemoglo bin [Entiti c mass] by Automat ed count Erythro 33.5 32.1 - gm/dL No No Jul 07 cyte 35.3 informa informa 2013 mean tion in tion in 2:48 AM [...] count Platele 9.3 6.8 - fL No No Jul 07 t mean 10.8 informa informa 2013 volume tion in tion in 2:48 AM [Entiti source source c data data volume] in Blood UA Observa Value Referen Units Interpr Notes Date tion ce etation Range Color Yellow No No No No Jul 05 of informa informa informa informa 2013 Urine tion in tion in tion in tion in 12:32 source source source source AM data data data data Appeara Clear Clear No No No Jul 05 nce of informa informa informa 2013 Urine tion in tion in tion in 12:32 source source source AM data data data UA Negativ Negativ No No No Jul 05 Glucose e e [...] 05 Blood e e informa informa informa 2013 [...] 05 te e e informa informa informa 2013 esteras tion in tion in tion in 12:32 e source source source AM [Presen data data data ce] in Urine by Test strip Specifi >=1.030 1.001 - No No No Jul 05 c 1.035 informa informa informa 2013 gravity tion in tion in tion in 12:32 of source source source AM Urine data data data hCG Urine POC Observa Value Referen Units Interpr Notes Date tion ce etation Range U hCG Positiv No No No No Jul 05 POC e informa informa informa informa 2013 [...] Sep 23 Est e informa l informa 2013 POC [...] Sep 23 Appear y informa l informa 2013 Cloudy tion in tion in 9:59 PM source source data data UA Negativ Negativ No No No Sep 23 Glucose e e informa informa informa 2012 tion in tion in tion in 9:59 PM source source source data data data UA Negativ Negativ No No No Sep 23 Ketones e e informa informa informa 2012 tion in tion in tion in 9:59 PM source source source data data data UA Large Negativ No Abnorma No Sep 23 Blood e informa l informa 2012 [...] 23 Nitrite e e informa l informa 2012 tion in tion in 9:59 PM source source data data UA Leuk Small Negativ No Abnorma No Sep 23 Est e informa l informa 2012 tion in tion in 9:59 PM source source data data UA Spec >=1.030 No No No No Sep 23 Grav informa informa informa informa 2013 tion [...] field UA 0-3 No /HPF No No Sep 23 Squam informa informa informa 2013 Epi tion in tion in tion in 9:59 PM source source source data data data UA Present No No No No Sep 23 Mucous informa informa informa informa 2013 tion in tion in tion in tion in 9:59 PM source source source source data data data data UA Moderat No /HPF Abnorma No Sep 23 Bacteri e informa l informa 2013 a [...]
--- OUTSIDE RECORDS SUMMARY | 2017-03-05 20:34 | External Medical Summary Rpt ---
[...] in 1:03 PM source source data data Swain# 0.7 0.0 - x10(3)/ No January 02 [...] Notes Date tion ce etation Range UA Farmers No No Abnorma No Oct 9 Color [...] in 5:51 PM source source data data Swain# 0.6 0.0 - x10(3)/ No No May [...] oeae ed DNA Specime probe n using [employer] A negativ e result does not rule out the presenc e of DNA in concent rations below\\. br\\the level of detecti on of the assay.\\ .br\\\\.b r\\The perform ance charact eristic s of this test were validat ed by [facility] are Laborat ory. This laborat ory [...] in 6:11 AM source source data data Swain# 0.6 0.0 - x10(3)/ No No Feb [...] Survey\\ .br\\Ref erral from:\\. br\\Dr. MYKE PRECIADO [facility] are\\.br \\SEP Laboris ts [address]\\. br\\[address] [address]\\. br\\Fami ly Birthpl kelsi Central Supply Supervisor [phone]\\.br\\[place] [address] Reading Room \\.br\\P sidney: [phone] Fax \\.br\\F ax: [phone]\\.br\\- ------- ------- ------- ------- ------- ------- ------- ------- ------- ------\\ .br\\PAT IENT INFORMA TION:\\. br\\Name : MAKENZIE ARGUETA MR#: [id number] 6\\.br\\A ge: 23 y/o Exam Date: 4\\.br\\D OB: 991 Visit #: 6\\.br\\L MP: 013 Locatio n: Chaitanya Cuevas th\\.br\\ [facility] are-- [place]\\.br\\# Fetuses : 1\\.br\\I [...] r\\HL/BP D: 0.73 FL/BPD: 0.81\\.b r\\Left Kidney: [id number] 9mm Right Kidney: 38u81m0 5mm\\.br \\R.Pelv is:5.5m m\\.br\\H umerus: 57.0 mm [...] \\.br\\Fo ur Chamber View RVOT\\.b r\\Cardi ac Rincon Cardiac Positio n\\.br\\F etal Heart Rate Diaphra [...] br\\Abno rmal\\.b r\\----- ---\\.br \\None identif ied\\.br \\FORGE TENDER FINDING S:\\.br\\ Ovaries : Right: - 23 [...] Testing \\.br\\Re ferral from:\\. br\\Dr. MYKE PRECIADO [facility] are\\.br \\APR Laboris ts [address]\\. br\\[address] [place] [address]\\. br\\Fami ly Birthpl kelsi Central Supply Supervisor \\.br\\[place] [address] Reading Room \\.br\\P sidney: [phone] Fax \\.br\\F ax: [phone]\\.br\\- ------- ------- ------- ------- ------- ------- ------- ------- ------- ------\\ .br\\PAT IENT INFORMA TION:\\. br\\Name : MAKENZIE ARGUETA MR#: [id number] 6\\.br\\A ge: 23 y/o Exam Date: 4\\.br\\D OB: 991 Visit #: 5\\.br\\L MP: 013 Locatio n: [facility]\\.br\\ [facility] are-- [place]\\.br\\# Fetuses : 1\\.br\\I [...] Testing \\.br\\Re janel from:\\. br\\Dr. MERVIN RUSH[facility]\\.br \\[facility] [address]\\. br\\[address] [facility] [address] [place] [address]\\. br\\[place] [address] Central Supply Supervisor \\.br\\P sidney: Ext. [phone] Reading Room \\.br\\F ax: Fax \\.br\\- ------- ------- ------- ------- ------- ------- ------- ------- ------- ------\\ .br\\PAT IENT INFORMA TION:\\. br\\Name : MAKENZIE ARGUETA MR#: [id number] 6\\.br\\A ge: 23 y/o Exam Date: 4\\.br\\D OB: 991 Visit #: 4\\.br\\L MP: 013 Locatio n: [facility]\\.br\\ [facility] are-- [place]\\.br\\# Fetuses : 1\\.br\\I [...] \\36 11/13 wks 36 4/7 wks 03/02/14 \\.br\\NE ESENTAT ION/COR D/PLACE NTA/CER VIX:\\.b r\\Prese ntation [...] Testing \\.br\\Re janel from:\\. br\\Dr. MERVIN RUSHING [facility] are\\.br \\Health [facility] [place]- dan[place] [address]\\. br\\[address] [facility] [address] [place] [address]\\. br\\[place] [address] Central Supply Supervisor \\.br\\P sidney: Ext. [phone] Reading Room \\.br\\F ax: Fax \\.br\\- ------- ------- ------- ------- ------- ------- ------- ------- ------- ------\\ .br\\PAT IENT INFORMA TION:\\. br\\Name : MAKENZIE ARGUETA MR#: [id number] 6\\.br\\A ge: 23 y/o Exam Date: 4\\.br\\D OB: 991 Visit #: 3\\.br\\L MP: 013 Locatio n: [facility]\\.br\\ [facility] are-- [place]\\.br\\# Fetuses : 1\\.br\\I [...] \\32 5/ wks 32 5/7 wks 03/02/14 \\.br\\NE ESENTAT ION/COR D/PLACE NTA/CER VIX:\\.b r\\Prese ntation [...] Survey\\ .br\\Ref erral from:\\. br\\Dr. MERVIN RUSHING [facility] are\\.br \\[address]\\. br\\[address] [place] [address]\\. br\\[place] [address] Central Supply Supervisor \\.br\\P sidney: [phone] Ext. 66 Reading Room \\.br\\F ax: Fax \\.br\\- ------- ------- ------- ------- ------- ------- ------- ------- ------- ------\\ .br\\PAT IENT INFORMA TION:\\. br\\Name : MAKENZIE ARGUETA MR#: [id number] 6\\.br\\A ge: 23 y/o Exam Date: 11/02/19 [...] View\\.b r\\RVOT LVOT\\.b r\\Aorti c Arch Cardiac Rincon\\.b r\\Cardi ac Positio n Heart Rate\\.b r\\Diaph [...] \\Kidney - Right (PYELEC TASIS-6 .2 MM)\\.br \\FORGE TENDER FINDING S:\\.br\\ Uterus: Normal\\ .br\\Ova chrissie: Left: [...] br\\pelv is measure s 0.45 cm.\\.br \\MFM Billboard Erector Helper ing:\\.b r\\Dr. Acuna spoke with the patient [...] Survey\\ .br\\Ref erral from:\\. br\\Dr. MERVIN RUSHING [facility] are\\.br \\Health [facility] [place] [address] [facility]\\. br\\[address] [facility] [address] [place] [address] [place] [address]\\. br\\[place] [address] Central Supply Supervisor \\.br\\P sidney: Ext. 6616 Reading Room [phone]\\.br\\F ax: Fax \\.br\\- ------- ------- ------- ------- ------- ------- ------- ------- ------- ------\\ .br\\PAT IENT INFORMA TION:\\. br\\Name : MAKENZIE ARGUETA MR#: [id number] 6\\.br\\A ge: 23 y/o Exam Date: 4\\.br\\D OB: 991 Visit #: 1\\.br\\L MP: 013 Locatio n: [facility].br\\ [facility] are-- [place]\\.br\\# Fetuses : 1\\.br\\I [...] r Chamber View Aortic Arch\\.b r\\Cardi ac Rincon Cardiac Positio n\\.br\\F etal Heart Rate Diaphra gm\\.br\\ IVC SVC\\.br \\Ventra l Wall Stomach \\.br\\Ki dney - Left Kidney - Right\\. br\\Blad bar Genital ia\\.br\\ Upper Extremi ties\\.b r\\Subop timal\\. br\\---- ------\\ .br\\Nos e Lips\\.b r\\RVOT LVOT\\.b r\\Lower Extremi ties\\.b r\\Not Visuali zed\\.br \\------ ------- -\\.br\\P rofile Orbits\\ .br\\Thr ee Vessel View Ductal Arch\\.b r\\Abnor mal\\.br \\------ --\\.br\\ None identif ied\\.br \\FORGE TENDER FINDING S:\\.br\\ Ovaries : Left: Normal - [...] in 6:13 AM source source data data Swain# 1.1 0.0 - x10(3)/ No No Aug [...] in 6:20 PM source source data data Swain# 1.1 0.0 - x10(3)/ No No Aug [...] ------- ------- ------- ------- ---\\.br \\Ashken nadya Mandaeism 94% 1 in 25 1 in 400\\.br [...] screeni n revisio n\\.br\\o f Sammi n [place] [facility] s mutatio n panel.\\ [...] in 3,000 Caucasi ans or Ashkena zi Mandaeism, 1 in\\.br\\ 8,000 Hispani cs, 1 in [...] T\\.br\\( c.262_2 63delTT ), A455E (c.1364 C>A), P502yaz \\.br\\(c .1519_1 521de;A TC), H571nyd (c.1521 _1523de ;CTT), V520F\\. br\\(c.1 558G>T) , G542X (c.1624 G>T), S549N (c.1646 G>A), S549R\\. br\\(c.1 645A>C or c.1647T >G), G551D (c.1652 G>A), R553X\\. br\\(c.1 657C>T) , R560T (c.1679 G>C), 621+1G> T (c.489+ 1G>T),\\ .br\\711 +1G>T (c.579+ 1G>T), 1078del T (c.948d elT), R8088C\\ .br\\(c. 3484C>T ), X0866W (c.3846 G>A), P0621J (c.3909 C>G),\\. br\\1717 -1G>A (c.1585 -1G>A), 1898+1G >A (c.1766 +1G>A), 2183AA> G\\.br\\( c.2051_ 2052del AAinsG) , 2184del A (c.2052 Freddy), 2789+5G >A\\.br\\ (c.2657 +5G>A), 3120+1G >A (c.2988 +1G>A), 3659del C\\.br\\( c.3528d elC), 3849+10 kbC>T (c.3717 +13679T >T), 3876del A\\.br\\( c.3744d Kalpana), 3905ins T (c.3773 _3774in sT). For specime ns\\.br\\ positiv e for R117H, the IVS-8/p cayla T (c.1210 -12T[5_ 9] is\\.br\\ analyze d. The mutatio ns tested are listed above accordi ng\\.br\\ to the legacy nomencl ature; the standar d nomencl ature is\\.br\\ listed in merged with [facility] eses. Panel mutatio ns are reporte d\\.br\\a ccordin g to the legacy nomencl ature.\\ .br\\CLI NICAL SENSITI VITY: Ashkena zi Mandaeism 94 percent ,\\.br\\C aucasia n 89 percent [...] . See Complia nce Stateme nt C: [employer]/CS Hep Prf-Ac Observa Value Referen Units Interpr [...] ce] in Archite Serum ct Anti-HC V). [facility] are Laborat ory recomme nds collect [...] oeae ed DNA Specime probe n using [employer] A negativ e result does not rule out the presenc e of DNA in concent rations below\\. br\\the level of detecti on of the assay.\\ .br\\\\.b r\\The perform ance charact eristic s of this test were validat ed by [facility] are Laborat ory. This laborat ory [...] Notes Date ti ce etation Range Choriog 85342 0 - 5 mIU/mL High Females Jul [...]
[2017-03-05 20:36] LABS: URINE BILIRUBIN - DIPSTICK NEGATIVE (NEG); URINE BLOOD 2+ (NEG)
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
[2017-03-05 21:53] VITALS: BP 154/108
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
== END 2017-03-05 21:54 | disposition home or self-care (01) ==
LOC: ER 19:51
PROVIDERS: Emergency Medicine
DX: S49.91XA Unspecified injury of right shoulder and upper arm, initial encounter (principal); I10 Essential (primary) hypertension; Z72.0 Tobacco use; Y04.0XXA Assault by unarmed brawl or fight, initial encounter; Y92.009 Unspecified place in unspecified non-institutional (private) residence as the place of occurrence of the external cause

== ENCOUNTER → 2017-04-27 | Outpatient (CLI) | payer MEDICAID ==
[2017-04-27 13:34] LABS: HEMOGLOBIN 13.6 g/dL (12.2-16.2); LYMPH % 40.8 % (10-50.0)
[2017-04-27 13:48] LABS: BUN 6 mg/dL (7-18); GFR (ESTIMATED) 102 ML/MIN (59-)
== END ==
LOC: LAB 13:04
PROVIDERS: Nurse Practitioner Obstetrics & Gynecology
DX: N92.0 Excessive and frequent menstruation with regular cycle (principal)